=== PATIENT | male | born 1940 | race Caucasian/White ===

== ENCOUNTER 2022-04-24 01:48 | Outpatient (CLI) | payer MEDICARE | END 2022-04-24 01:49 | disposition critical access hospital (66) | LOC: EMS 01:48 | DX: R53.1 Weakness (principal); R29.810 Facial weakness | CPT/HCPCS: A0425; A0429 ==

== ENCOUNTER 2022-04-24 02:03 | Emergency (ER) | payer MEDICARE ==
--- NOTE | 2022-04-24 02:32 | ED Physician Documentation ---
PD HPI FOCAL NEURO - Stated complaint Stated Complaint: TIA - Chief complaint Chief Complaint: Neuro - History obtained from History obtained from: Patient, Family (spouse (in ED at bedside)) - History of Present Illness Timing - onset: Enter time (22:30) Timing - details: Abrupt onset Severity of deficit: Moderate Weakness: Arm, Hand, Leg, Foot, Right Associated symptoms: No: Headache, Nausea / vomiting, Seizure, Syncope, Fall, Head injury, Chest pain, Neck pain, Back pain, Fever Contributing factors: positive: Anticoagulated, Atrial fibrillation Baseline status: positive: A&OX3, ambulatory, indep Recently seen: Not recently seen - Additional information Additional information: BIBA. HPI from patient. EMS and patients contribute to HPI as well. Tonight at approximately 10:30 PM, patient was standing at home urinating in his bathroom when he had rapid onset of right-sided weakness. He felt dizziness and felt right arm and leg weakness. He did not fall to ground and had enough strength to support himself by bracing himself against the bathroom sink. The episode lasted 10-15 minutes and completely resolved. 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 The symptoms again lasted 10-15 minutes and have completely resolved by the time of EMS arrival. He arrives to ED asymptomatic. Denies h/o similar symptoms. Review of Systems Constitutional: reports: Reviewed and negative Eyes: reports: Reviewed and negative Ears: reports: Reviewed and negative Cardiac: reports: Reviewed and negative Respiratory: reports: Reviewed and negative GI: reports: Reviewed and negative : reports: Reviewed and negative Musculoskeletal: reports: Reviewed and negative Neurologic: reports: Focal weakness (RUE/RLE, resolved). denies: Numbness, Difficulty speaking, Near syncope, Syncope, Confused, Altered mental status, Headache, Head injury, LOC PD PAST MEDICAL HISTORY - Past Medical History Past Medical History: Yes Cardiovascular: Congestive heart failure, Hypertension, Atrial fibrillation - Past Surgical History Cardiovascular: CABG (3 vessel) - Present Medications Home Medications: Ambulatory Orders Medication Instructions Recorded Confirmed Apixaban [Eliquis] 5 mg 04/24/22 Cholecalciferol (Vitamin D3) 04/24/22 [Vitamin D3] Cyanocobalamin (Vitamin B-12) 04/24/22 [Vitamin B12] Furosemide 20 mg 04/24/22 Leflunomide [Arava] 20 mg PO 04/24/22 Lisinopril [Zestril] 04/24/22 Metoprolol Tartrate [Lopressor] 500 mg 04/24/22 Potassium Citrate [Potassium] 04/24/22 Resveratrol/Quercetin/Stilbene 04/24/22 [Resveratin Plus Capsule] Trospium Chloride [Trospium 04/24/22 Chloride ER] Vibegron [Gemtesa] 04/24/22 - Allergies Allergies/Adverse Reactions: Allergies Allergy/AdvReac Type Severity Reaction Status Date / Time hydrocodone Allergy Unknown Verified 04/24/22 02:20 levofloxacin [From Levaquin] Allergy Unknown Verified 04/24/22 02:20 linagliptin [From Jentadueto] Allergy Unknown Verified 04/24/22 02:20 metformin [From Jentadueto] Allergy Unknown Verified 04/24/22 02:20 Penicillins Allergy Unknown Verified 04/24/22 02:20 tamsulosin [From Flomax] Allergy Unknown Verified 04/24/22 02:20 PD ED PE NORMAL - Vitals Vital signs reviewed: Yes - General General: Alert and oriented X 3, No acute distress, Well developed/nourished - HEENT HEENT: PERRL, EOMI, Moist mucous membranes, Pharynx benign - Neck Neck: Supple, no meningeal sign - Cardiac Cardiac: RRR (regular baseline rhythm with frequent extra beats), No murmur, No gallop, No rub - Respiratory Respiratory: No respiratory distress, Clear bilaterally - Abdomen Abdomen: Soft, Non tender - Derm Derm: Normal color, Warm and dry - Neuro Neuro: Alert and oriented X 3, 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, No motor deficit, No sensory deficit, Normal speech Eye Opening: Spontaneous Motor: Obeys Commands Verbal: Oriented GCS Score: 15 NIHSS - Level of Consciousness Level of consciousness: (0) Alert, Keenly responsive LOC Questions: (0) Answers both Q's correct LOC Commands: (0) Performs both correctly - Gaze Best Gaze: (0) Normal - Visual Visual: (0) No loss - Facial Palsy Facial Palsy: (0) Normal, symmetrical movement - Motor Arms (both separate) Motor Arm (right): (0) No drift Motor Arm (left): (0) No drift - Motor Legs (both separate) Motor Leg (right): (0) No drift Motor Leg (left): (0) No drift - Limb Ataxia Limb Ataxia: (0) Absent - Sensory Sensory: (0) Normal - Best Language Best Language: (0) No aphasia - Dysarthria Dysarthria: (0) Normal - Extinction and Inattention (formally neg Extinction and inattention: (0) No abnormality - Total Score/Results Total Score/Result: 0 Results - Vitals Vitals: Vital Signs - 24 hr 04/24/22 04/24/22 04/24/22 02:49 03:19 03:30 Heart Rate 76 67 68 Respiratory 18 18 20 Rate Blood Pressure 189/94 H 161/95 H 158/77 H O2 Saturation 97 99 97 04/24/22 04/24/22 04/24/22 05:30 06:30 08:30 Heart Rate 65 75 78 Respiratory 18 18 19 Rate Blood Pressure 155/86 H 151/81 H 144/78 H O2 Saturation 94 100 99 Oxygen O2 Source Room air - EKG (time done) No standard instances Rate: Rate (enter#) (65) Rhythm: NSR [place]: Normal, Anterior hemiblock Intervals: Normal GA, RBBB (incomplete) QRS: Normal Ischemia: Normal ST segments Other comments: Other comments (PAC) - Labs Labs: Laboratory Tests 04/24/22 04/24/22 04/24/22 03:00 03:19 03:19 WBC 8.4 RBC 5.01 Hgb 14.8 Hct 47.1 MCV 94.0 MCH 29.5 MCHC 31.4 L RDW 15.7 H Plt Count 178 MPV 10.5 Neut # (Auto) 4.6 Lymph # (Auto) 2.5 [place] # (Auto) 1.1 H Eos # (Auto) 0.2 Baso # (Auto) 0.1 Absolute Nucleated RBC 0.00 Nucleated RBC % 0.0 Sodium 137 Potassium 4.6 Chloride 102 Carbon Dioxide 26 Anion Gap 9.0 BUN 22 H Creatinine 1.0 Estimated GFR (MDRD) 71 L Glucose 147 H Calcium 9.2 Urine Color YELLOW Urine Clarity CLEAR Urine pH 6.0 Ur Specific [place] 1.015 Urine Protein TRACE Urine Glucose (UA) 100 H Urine Ketones NEGATIVE Urine Occult Blood NEGATIVE Urine Nitrite NEGATIVE Urine Bilirubin NEGATIVE Urine Urobilinogen 0.2 (NORMAL) Ur Leukocyte Esterase NEGATIVE Ur Microscopic Review NOT INDICATED Urine Culture Comments NOT INDICATED - Rads (name of study) CTH Radiology: Prelim report reviewed, See rad report CTA head Radiology: Prelim report reviewed, See rad report chest xray Radiology: Prelim report reviewed, See rad report PD Medical Decision Making - ED course Complexity details: reviewed results, re-evaluated patient, considered differential, d/w patient, d/w family ED course: Asymptomatic during ED stay. HPI is s/o TIAs. No acute findings on CTA head, nor on CXR, EKG, blood tests. His medications include eliquis for atrial fibrillation. He cannot have MRI due to hearing implant. Further emergent/inpatient testing/treatment not indicated at this time. Results and return precautions discussed Departure - Departure Disposition: 01 Home, Self Care Clinical Impression: TIA (transient ischemic attack) Condition: Good Instructions: ED Transient Ischemic Attack Discharge Date/Time: 04/24/22 08:35
[2022-04-24] MEDS ORDERED: iohexoL-300 100 ML VIAL ONE (03:06)
[2022-04-24 03:13] LABS: BILIRUBIN,URINE NEGATIVE (NEGATIVE); CLARITY,URINE CLEAR (CLEAR); GLUCOSE, URINE (UA) 100 mg/dL (NEGATIVE); KETONES,URINE (UA) NEGATIVE (NEGATIVE); LEUKOCYTE ESTERASE, URINE NEGATIVE (NEGATIVE); NITRITE,URINE NEGATIVE (NEGATIVE); OCCULT BLOOD,URINE NEGATIVE (NEGATIVE); PROTEIN,URINE TRACE mg/dL (NEGATIVE); UROBILINOGEN,URINE 0.2 (NORMAL) E.U./dL (NORMAL)
[2022-04-24 03:23] LABS: BASOPHILS # (AUTO) 0.1 10^3/uL (0.0-0.1); BASOPHILS % (AUTO) 1.1 %; EOSINOPHILS # (AUTO) 0.2 10^3/uL (0.0-0.7); EOSINOPHILS % (AUTO) 2.6 %; HCT - HEMATOCRIT 47.1 % (42.0-52.0); HGB - HEMOGLOBIN 14.8 g/dL (14.0-18.0); LYMPHOCYTES # (AUTO) 2.5 10^3/uL (1.5-3.5); LYMPHOCYTES % (AUTO) 29.2 %; MEAN CORPUSCULAR HEMOGLOBIN 29.5 pg (27.0-31.0); MEAN CORPUSCULAR HGB CONC 31.4 g/dL (32.0-36.0); MEAN PLATELET VOLUME 10.5 fL (7.4-11.4); MONOCYTES # (AUTO) 1.1 10^3/uL (0.0-1.0); MONOCYTES % (AUTO) 12.5 %; NEUTROPHILS # (AUTO) 4.6 10^3/uL (1.5-6.6); NEUTROPHILS % (AUTO) 54.2 %; PLT - PLATELET COUNT 178 10^3/uL (130-450); RED BLOOD COUNT 5.01 10^6/uL (4.70-6.10); RED CELL DISTRIBUTION WIDTH 15.7 % (12.0-15.0); WHITE BLOOD COUNT 8.4 x10^3/uL (4.8-10.8)
[2022-04-24 03:31] LABS: CALCIUM 9.2 mg/dL (8.5-10.3); POTASSIUM 4.6 mmol/L (3.5-5.0)
[2022-04-24] MEDS ORDERED: iohexoL-300 100 ML VIAL IVP ONE (05:07)
--- NOTE | 2022-04-24 08:10 | XRAY Report ---
PROCEDURE: Chest 2 View X-Ray INDICATIONS: TIA x 2 today TECHNIQUE: 2 views of the chest were acquired. COMPARISON: None. FINDINGS: Surgical changes and devices: None. Lungs and pleura: No pleural effusions or pneumothorax. Lungs are clear. Mediastinum: Mediastinal contours are normal. Heart size is normal. Bones and chest wall: No suspicious bony abnormalities. Soft tissues appear unremarkable. IMPRESSION: No acute cardiopulmonary pathology. No discrepancies. Reviewed by: Angel Lujan MD on 04/24/2022 8:08 AM [facility] Approved by: Angel Lujan MD on 04/24/2022 8:08 AM [facility] Station ID: [id number]
--- NOTE | 2022-04-24 08:21 | CT Report ---
PROCEDURE: ANGIO HEAD W/WO INDICATIONS: TIA x 2 today CONTRAST: Omni 300 80ml TECHNIQUE: Precontrast 4.5 mm thick angled axial sections acquired from the foramen magnum to the vertex. Afte r the administration of intravenous contrast, 1 mm thick sections acquired through the [place] of [place] is. Postcontrast 4.5 mm thick sections then re-acquired from the foramen magnum to the vertex. 3-di mensional isjxhty-mksdypjwt-vmaankonik (MIP) and/or volume rendering reformats were acquired of the c entral intracranial vasculature. For radiation dose reduction, the following was used: automated ex posure control, adjustment of mA and/or kV according to patient size. COMPARISON: None FINDINGS: Image quality: Excellent. Anterior circulation: Intracranial internal carotid arteries demonstrate extensive atherosclerotic c alcifications in the cavernous segments with only mild stenotic disease. The flow within the paired a nterior cerebral arteries is normal and symmetric. There is very mild bilateral M1 segment atheroscle rotic disease. The middle cerebral arteries are otherwise patent. The anterior communicating artery i s seen. No aneurysms are seen. Posterior circulation: The left vertebral artery is dominant. The distal right vertebral artery is qu ite diminutive. There is mild stenotic disease involving the basilar artery and P1 segments of the po sterior cerebral arteries. No occlusions. No aneurysms are seen. CSF spaces: Ventricles are normal in size and shape. Basal cisterns are patent. No extra-axial flu id collections. Brain: No midline shift. No intracranial bleeds or masses. Davis-white matter interface appears int act. Age-related volume loss and mild small vessel ischemic change. Skull and face: Calvarium and facial bones appear intact, without suspicious lesions. Sinuses: Visualized sinuses and mastoids are clear. IMPRESSION: 1. There is diffuse mild atherosclerotic narrowing of multiple intracranial vessels. No severe stenos es or occlusions or focal filling defects. Findings are concordant with preliminary interpretation provided by [facility]. Reviewed by: Eugnee Van MD on 04/24/2022 8:19 AM PST Approved by: Eugene Van MD on 04/24/2022 8:19 AM PST Station ID: [id number]
[2022-04-24 08:33] VITALS: BP 144/78
== END 2022-04-24 08:35 | disposition home or self-care (01) ==
LOC: ED 02:03
DX: G45.9 Transient cerebral ischemic attack, unspecified (principal); I48.91 Unspecified atrial fibrillation; Z79.01 Long term (current) use of anticoagulants; Z95.1 Presence of aortocoronary bypass graft; I11.0 Hypertensive heart disease with heart failure; I50.9 Heart failure, unspecified
CPT/HCPCS: 36415; 70496; 71046; 80048; 81003; 85025; 93005; 99284; Q9967; 81001; 87086

== ENCOUNTER 2022-10-01 12:20 | Outpatient (CLI) | payer MEDICARE, OTHER ==
--- NOTE | 2022-10-01 16:52 | XRAY Report ---
PROCEDURE: Chest 2 View X-Ray INDICATIONS: ATELECTASIS L LUNG BASE TECHNIQUE: 2 views of the chest were acquired. COMPARISON: 04/24/2022 FINDINGS: Surgical changes and devices: Median sternotomy. Lungs and pleura: No pleural effusions or pneumothorax. Lungs are clear. Mediastinum: Mediastinal contours appear normal. Heart size is normal. Bones and chest wall: No suspicious bony lesions. Overlying soft tissues appear unremarkable. IMPRESSION: No acute process. Reviewed by: Honey Guzmán MD on 10/01/2022 4:50 PM PDT Approved by: Honey Guzmán MD on 10/01/2022 4:50 PM PDT Station ID: [id number]
== END 2022-10-01 12:21 | disposition home or self-care (01) ==
LOC: DI.N 12:20
PROVIDERS: ATTEND Family Medicine
DX: J98.11 Atelectasis (principal)

== ENCOUNTER 2023-02-16 08:00 | Outpatient (CLI) | payer MEDICARE, OTHER ==
--- NOTE | 2023-02-16 16:33 | XRAY Report ---
PROCEDURE: Knee 4 View LT INDICATIONS: LEFT KNEE PAIN TECHNIQUE: 4 views of the left knee and one view of the right knee acquired. COMPARISON: None. FINDINGS: Bones: No acute fractures or dislocations. No suspicious bony lesions. Postsurgical changes are s een from right total knee arthroplasty. There is severe joint space narrowing at the left lateral fem orotibial compartment subchondral sclerosis and marginal osteophyte formation. Moderate joint space n arrowing seen at the left medial femorotibial compartment and there is mild narrowing of the anterior compartment joint space with small marginal osteophytes. Soft tissues: Small knee joint effusion. No suspicious soft tissue calcifications. Surgical clips a re seen in the soft tissues at the posterior medial aspect of the left lower extremity. Nonspecific s oft tissue edema is present. IMPRESSION: 1.Tricompartmental left knee osteoarthrosis, severe at the lateral femorotibial compartment. 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
== END 2023-02-16 23:59 | disposition home or self-care (01) ==
LOC: DI.WOS 08:00
PROVIDERS: ATTEND Physician Assistant Surgical
DX: M17.12 Unilateral primary osteoarthritis, left knee (principal); Z96.651 Presence of right artificial knee joint

== ENCOUNTER 2023-12-02 12:44 | Outpatient (CLI) | payer MEDICARE, OTHER ==
--- NOTE | 2023-12-02 13:29 | Sleep Patient Instructions ---
Sleep Center Visit Summary - Patient Visit Information Reason for Visit: First Compliance follow-up - Patient Instructions Additional Instructions: You were here for follow up of BIPAP therapy. You will be continued on BiPAP therapy with pressure at 13/7 cmH2O. Please let us know if the pressure change is uncomfortable and we can make further adjustments of the pressure. You should follow up with sleep care in 1-2 months. You may contact us sooner for any questions or concerns. - Clinic Information Contact: [facility] [address] [place] [address] [email or web address] T: [phone]
--- NOTE | 2023-12-02 13:34 | SLEEP CARE CONSULTATION ---
Information from patient questionnaire entered by Liz Collado. I have reviewed and concur with the information entered by Liz Collado. This document represents the service I personally performed and the decisions made by me, Barb Leary ARNP. History of Present Illness Service Date and Time: 12/02/2023 1244 Previous diagnosis: Very Severe, Obstructive Sleep Apnea-Hypopnea Syndrome AHI: 89 (08/25/2016) Reason for follow up: first compliance after device update Accompanied by: Spouse (Jody) Equipment type: BiPAP (ResMed AirCurve 11 VAuto, s/u 09/30/23) Equipment obtained from: Other ([facility]; getting supplies) Mask style: Nasal Mask brand: Respironics (Dreamwear) Backup mask available: Yes Last cushion change: 3 weeks Prior sleep studies: Yes Year and Where: 2018 HPI additional information: KEITH DURANT was diagnosed to have very severe, AHI 89, obstructive sleep apnea-hypopnea syndrome and returned today for BIPAP therapy first compliance after updating device follow-up. Sleep Study - Results Prior sleep studies: Yes Year and Where: 2018 CPAP Compliance Data - Data Reviewed with Patient Average duration of nightly device use: 8 HRS 30 MIN Compliance rate %: 87 (09/30/23-10/29/23; 29/30 days used) Current pressure setting (cmH2O): 12/7 with 4 support Average residual AHI: 27.6 (unknown 15.9) Central apnea: 1.2 Obstructive apnea: 10.2 Hypopnea: 0.2 Average large leak: 10.3 L/min Subjective Patient concerns: reports: dry mouth, nose, throat. denies: aerophagia, mask discomfort, air blowing in eyes, mask leak noise, condensation in mask/hose, nasal congestion, epistaxis Observed to snore while using device: No Current pressure setting perceived as: comfortable On therapy, patient: reports: sleeping better, awakening more refreshed, being more awake and alert during the day, more rested overall. denies: drowsiness while driving Initial [place] Sleepiness Scale score: 14 (11/12/22) Current [place] Sleepiness Scale score: 13 (12/02/23) Allergies and Home Medications Known drug allergies: Yes (as listed) Drug allergies reviewed: Yes Home medication list reviewed: Yes (no changes) Allergy and home medication list: Allergies hydrocodone Allergy (Verified 12/02/23 12:59) Unknown levofloxacin [From Levaquin] Allergy (Verified 12/02/23 12:59) Unknown linagliptin [From Jentadueto] Allergy (Verified 12/02/23 12:59) Unknown metformin [From Jentadueto] Allergy (Verified 12/02/23 12:59) Unknown Penicillins Allergy (Verified 12/02/23 12:59) Unknown tamsulosin [From Flomax] Allergy (Verified 12/02/23 12:59) Unknown Review of Systems Review of systems same as previous: Yes (NO CHANGE) Physical Exam Vital signs obtained and entered by: LIZ Mac MA Blood Pressure: 143/76 (RIGHT ARM) Cuff size: regular Heart Rate: 72 O2 Saturation: 96 Height: 6 ft 2 in Weight: 216 lb 6.4 oz Body Mass Index: 27.8 BMI Classification: Overweight Impression and Plan 1. Obstructive Sleep Apnea-Hypopnea Syndrome, very severe, with good treatment compliance and fair apnea control with elevated residual AHI. On BIPAP therapy, the patient has better sleep quality and is more rested overall. He states that the bloating in the morning has greatly reduced with the pressure reduction to 12/7 cmH2O. However, his apnea control is not optimal. I did discuss possible need of a titration study to try to find a more optimal setting of his pressure but patient would like to think about whether he wants to do this or not. In the meantime, I will adjust his pressure to BIPAP 13/7 cmH20 for elevation of residual AHI. Patient advised to contact me if pressure change is uncomfortable so that it can be adjusted. Goals for apnea control discussed. Patient's apnea severity and rationale for treatment to reduce apnea, improve sleep quality and reduce cardiovascular and cerebrovascular events was reviewed. I also reviewed the benefit of consistent device use of BIPAP for hypertension, cardiac disease (CHF, CHD), diabetes. 2. Overweight, unspecified. Currently patients BMI is 27.8. Obesity increases the risk of apnea, BIPAP pressure requirements and overall health risks especially cardiovascular and diabetes. Thus patient is advised to lose weight. * Change BIPAP pressure to 13/7 cmH2O with 4 cmH2O pressure support * Notify me if snoring with mask or feeling that the pressure is too much or too little * Attempt to lose weight * Call this office if any problems using BIPAP * Return for follow up in 1-2 months, or sooner if concerns arise Adjust device pressure to (cmH2O): 06/11 with 4 pressure support Counseling Topics: Spare mask, Weight loss health impact Follow up with Sleep Care in: 1-2 months Visit Type: In Office Time Spent with Patient (minutes): 27 Provider Statement: I spent 100% of the Face to Face Visit with the patient with greater than 50% spent counseling the patient and coordination of care.
[2023-12-02 13:41] VITALS: BP 143/76; O2SAT 96
== END 2023-12-02 12:45 | disposition home or self-care (01) ==
LOC: SC 12:44
PROVIDERS: ATTEND Nurse Practitioner Family
DX: G47.33 Obstructive sleep apnea (adult) (pediatric) (principal); E66.3 Overweight; Z68.27 Body mass index [BMI] 27.0-27.9, adult
CPT/HCPCS: 99213; G0463; 99212

== ENCOUNTER 2025-03-31 03:54 | Inpatient (IN) ==
--- NOTE | 2025-03-31 04:03 | ED Physician Documentation ---
History of Present Illness Stated complaint Stated Complaint: DIFF BREATHING Chief complaint Chief Complaint: Resp History obtained from History obtained from: Patient and EMS Additonal information Additional information: 84yM hard of hearing with pmh copd, chf, p/w soa tonight, found by to be wheezing off cpap machine. 95% RA on ems arrival albeit slow to answer questions. mental status improved en route without specific intervention. patient now alert and conversant. denies fever, cp, dizziness, nausea. He had recent CT chest a couple weeks ago with persistent fluid on the lungs per ems. Meds/Allgy Home Medications Ambulatory Orders Medication Instructions Recorded Confirmed apixaban 5 mg tablet (Eliquis) See Rx Instructions .Ro [place] .COMPLEX 11/12/22 02/14/25 cholecalciferol (vitamin D3) 125 See Rx Instructions . Route .COMPLEX 11/12/22 02/14/25 mcg (5,000 unit) capsule cyanocobalamin (vitamin B-12) See Rx Instructions .Rou te .COMPLEX 11/12/22 02/14/25 5,000 mcg disintegrating tablet leflunomide 20 mg tablet (Arava) See Rx Instructions . Route .COMPLEX 11/12/22 02/14/25 metformin 500 mg tablet See Rx Instructions .Route . COMPLEX 11/12/22 02/14/25 metoprolol succinate 25 mg See Rx Instructions .Route .COMPLEX 11/12/22 02/14/25 tablet,extended release 24 hr silodosin 8 mg capsule (Rapaflo) See Rx Instructions . Route .COMPLEX 11/12/22 02/14/25 trospium 60 mg capsule,extended See Rx Instructions .R oute .COMPLEX 11/12/22 02/14/25 release 24 hr aspirin 81 mg capsule (Vazalore) See Rx Instructions . Route .COMPLEX 09/24/23 02/14/25 furosemide 20 mg tablet See Rx Instructions .Route . COMPLEX 09/24/23 02/14/25 isosorbide mononitrate 30 mg See Rx Instructions .Rout e .COMPLEX 09/24/23 02/14/25 tablet,extended release 24 hr nitroglycerin 2.5 mg See Rx Instructions .Route . COMPLEX 09/24/23 02/14/25 capsule,extended release sacubitril 24 mg-valsartan 26 mg See Rx Instructions . Route .COMPLEX 09/24/23 02/14/25 tablet (Entresto) spironolactone 25 mg tablet See Rx Instructions .Route .COMPLEX 09/24/23 (Aldactone) albuterol sulfate 90 mcg/actuation 2 puff inhalation Q 6H PRN 01/19/25 02/14/25 aerosol inhaler (Ventolin HFA) shortness of breath or wheezing gabapentin 100 mg capsule 100 mg PO QDAY 01/19/2501/26 albuterol sulfate 2.5 mg/3 mL mg 03/31/25 (0.083 %) solution for nebulization Allergies Allergies Allergy/AdvReac Type Severity Reaction Status Date / Time hydrocodone Allergy Unknown Verified 03/31/25 04:02 levofloxacin (From Levaquin) Allergy Unknown Verified 03/31/25 04:02 linagliptin (From Jentadueto) Allergy Unknown Verified 03/31/25 04:02 Penicillins Allergy Unknown Verified 03/31/25 04:02 tamsulosin (From Flomax) Allergy Unknown Verified 03/31/25 04:02 PFSH Active Problems All Active Problems Breath shortness (Acute) Obstructive sleep apnea of adult (Chronic) Acute exacerbation of CHF (congestive heart failure) (Acute) Abdominal pain (Acute) Medical History Medical History Atrial fibrillation Atrial fibrillation Coronary artery disease Coronary artery disease Hypertension Hypertension Social History Social History (Updated 01/19/25 @ 11:31 by Opal Cabrera RN, MSN) Smoking Status: Former smoker If you are a former smoker, when did you quit? (Date/Year): 1966 Number of Years Smoked: 7 How many cigarettes a day do you smoke? (20 cigarettes=1 Pk): 8 Do you vape?: No Do you feel safe in your home environment?: Yes History of physical, verbal, emotional, or financial abuse?: No POLST Patient has POLST: Yes Exam Exam Vital Signs: Vital Signs x48h Temp Pulse Resp BP Pulse Ox O2 Flow Rate 03/31/25 04:56 73 21 155/79 H 96 2 03/31/25 04:22 76 24 1.5 03/31/25 03:59 36.7 C 81 22 150/81 H 96 2 Constitutional elderly appearing with audible wheeze (at baseline per ems) HENMT normocephalic, head/scalp atraumatic and oropharynx normal Eyes PERRL and EOMs intact bilaterally Neck/C-Spine visual inspection normal Chest inspection of chest normal Respiratory breath sounds equal bilaterally and normal respiratory effort BL expiratory wheezing Cardiovascular normal heart rate noted and regular rhythm noted Gastrointestinal abdomen normal to inspection, abdomen soft to palpation and nontender to palpation Extremities normal to inspection Results Vitals Vitals: Vital Signs - 24 hr 03/31/25 03:59 03/31/25 04:22 03/31/25 04:56 Temperature 36.7 C Temperature Source Temporal Artery Scan Pulse Rate 81 76 73 Respiratory Rate 22 24 21 Blood Pressure 150/81 H 155/79 H O2 Saturation 96 96 O2 Source Nasal cannula Nasal cannula Nasal cannula If not protocol: Oxygen Flow, liters/minute 2 1.5 2 Pain Intensity 4 Oxygen O2 Source Nasal cannula EKG (time done) 0543: EKG releavant findings:: EKG personally interpreted by author of this note. Relevant findings are: Rate: Rate (enter#) (81) Rhythm: NSR Intervals: Normal HI Other comments: Other comments (multiple pvcs) Labs Labs: Laboratory Tests 03/31/25 03/31/25 03/31/25 04:10 04:25 04:26 WBC 7.3 RBC 4.29 L Hgb 12.7 L Hct 41.4 L MCV 96.5 H MCH 29.6 MCHC 30.7 L RDW 15.9 H Plt Count 184 MPV 11.3 Neut # (Auto) 3.4 Lymph # (Auto) 1.9 [place] # (Auto) 0.9 Eos # (Auto) 1.0 H Baso # (Auto) 0.1 Absolute Nucleated RBC 0.00 Nucleated RBC % 0.0 Manual Slide Review Indicated WBC Morphology NORMAL APPEARANCE Platelet Estimate NORMAL (130-450,000) Platelet Morphology NORMAL PABLITO RBC Morph Micro Appear NORMAL APPEARANCE VBG pH 7.465 H VBG pCO2 39.0 L VBG pO2 76.2 H VBG HCO3 28.3 H VBG Total CO2 29.5 H VBG O2 Saturation 95.0 H VBG Base Excess 4.4 H Sodium Potassium Chloride Carbon Dioxide Anion Gap BUN Creatinine Estimated GFR (MDRD) Glucose Calcium Total Bilirubin AST ALT Alkaline Phosphatase B-Natriuretic Peptide 96 Total Protein Albumin Globulin Albumin/Globulin Ratio Lipase Nasal Adenovirus (PCR) NOT DETECTED Nasal B. parapertussis DNA (PCR) NOT DETECTED Nasal Coronavir 229E PCR NOT DETECTED Nasal Coronavir HKU1 PCR NOT DETECTED Nasal Coronavir NL63 PCR NOT DETECTED Nasal Coronavir OC43 PCR NOT DETECTED Nasal Enterovir/Rhinovir PCR NOT DETECTED Nasal Influenza B PCR NOT DETECTED Nasal Influenza A PCR NOT DETECTED Nasal Parainfluen 1 PCR NOT DETECTED Nasal Parainfluen 2 PCR NOT DETECTED Nasal Parainfluen 3 PCR NOT DETECTED Nasal Parainfluen 4 PCR NOT DETECTED Nasal RSV (PCR) NOT DETECTED Nasal B.pertussis DNA PCR NOT DETECTED Nasal C.pneumoniae (PCR) NOT DETECTED Matias Human Metapneumo PCR NOT DETECTED Nasal M.pneumoniae (PCR) NOT DETECTED Nasal SARS-CoV-2 (PCR) NOT DETECTED 03/31/25 04:49 WBC RBC Hgb Hct MCV MCH MCHC RDW Plt Count MPV Neut # (Auto) Lymph # (Auto) [place] # (Auto) Eos # (Auto) Baso # (Auto) Absolute Nucleated RBC Nucleated RBC % Manual Slide Review WBC Morphology Platelet Estimate Platelet Morphology RBC Morph Micro Appear VBG pH VBG pCO2 VBG pO2 VBG HCO3 VBG Total CO2 VBG O2 Saturation VBG Base Excess Sodium 139 Potassium 3.7 Chloride 104 Carbon Dioxide 29 Anion Gap 6.0 BUN 21 H Creatinine 1.1 Estimated GFR (MDRD) 63 L Glucose 139 H Calcium 9.5 Total Bilirubin 0.5 AST 14 ALT 13 Alkaline Phosphatase 59 B-Natriuretic Peptide Total Protein 5.7 L Albumin 3.3 Globulin 2.4 Albumin/Globulin Ratio 1.4 Lipase < 10 L Nasal Adenovirus (PCR) Nasal B. parapertussis DNA (PCR) Nasal Coronavir 229E PCR Nasal Coronavir HKU1 PCR Nasal Coronavir NL63 PCR Nasal Coronavir OC43 PCR Nasal Enterovir/Rhinovir PCR Nasal Influenza B PCR Nasal Influenza A PCR Nasal Parainfluen 1 PCR Nasal Parainfluen 2 PCR Nasal Parainfluen 3 PCR Nasal Parainfluen 4 PCR Nasal RSV (PCR) Nasal B.pertussis DNA PCR Nasal C.pneumoniae (PCR) Matias Human Metapneumo PCR Nasal M.pneumoniae (PCR) Nasal SARS-CoV-2 (PCR) PD Medical Decision Making ED course ED course: 84yM p/w wheezing and soa tonight, appearing confused on initial ems arrival but with mental status improving en route and alert and oriented now in the ED and stating his wheezing is at baseline. O2 sat 95% RA. he was placed on 1L O2 for comfort. he is wheezing quite audibly and was given albuterol with improvement. plan to investigate labwork, imaging, ekg. Labwork looks pretty benign and patient endorses improvement with albuterol. awaiting cta chest results. plan to endorse to incoming daytime ed md at 7am shift change. 6:45am - Patient was trialed off oxygen and his saturation dropped to 89%RA. no bed availability for admission. Discharge Plan Discharge Condition: Stable Clinical Impression: Breath shortness Prescriptions: No Action metformin 500 MG tablet See Rx Instructions .Route .COMPLEX Rx Instructions: 3XQD leflunomide [Arava] 20 MG tablet See Rx Instructions .Route .COMPLEX Rx Instructions: QD metoprolol succinate 25 MG tablet extended release 24 hr See Rx Instructions .Route .COMPLEX Rx Instructions: QD cholecalciferol (vitamin D3) 5,000 UNIT capsule See Rx Instructions .Route .COMPLEX Rx Instructions: QD trospium 60 MG capsule,extended release 24hr See Rx Instructions .Route .COMPLEX Rx Instructions: QD silodosin [Rapaflo] 8 MG capsule See Rx Instructions .Route .COMPLEX Rx Instructions: QD cyanocobalamin (vitamin B-12) 5,000 MCG tablet,disintegrating See Rx Instructions .Route .COMPLEX Rx Instructions: QD Eliquis 5 MG tablet See Rx Instructions .Route .COMPLEX Rx Instructions: BID nitroglycerin 2.5 MG capsule, extended release See Rx Instructions .Route .COMPLEX Rx Instructions: PRN isosorbide mononitrate 30 MG tablet extended release 24 hr See Rx Instructions .Route .COMPLEX Rx Instructions: QD spironolactone [Aldactone] 25 MG tablet See Rx Instructions .Route .COMPLEX Rx Instructions: QD furosemide 20 MG tablet See Rx Instructions .Route .COMPLEX Rx Instructions: QD sacubitril-valsartan [Entresto] 1 EACH tablet See Rx Instructions .Route .COMPLEX Rx Instructions: QD [place] 81 MG capsule See Rx Instructions .Route .COMPLEX Rx Instructions: QD albuterol sulfate 2.5 mg /3 mL (0.083 %) solution for nebulization Patient Comments: INHALE THE CONTENTS OF 1 VIAL VIA NEBULIZER 4-6 TIMES DILY NEEDED gabapentin 100 mg capsule 100 mg PO QDAY albuterol sulfate [Ventolin HFA] 90 mcg/actuation HFA aerosol inhaler 2 puff inhalation Q6H PRN (Reason: shortness of breath or wheezing) Activity Restrictions/Additional Instructions: You were seen in the emergency department for medical evaluation. Your labwork and imaging uncovered no emergent issues. Please follow-up with your primary care provider and apple checker and return to the emergency department if you have any new or worsening symptoms or other concerns. Print Language: [place] Patient Instructions: ED Shortness of Breath (Dyspnea) Stand Alone Forms: PCP List
[2025-03-31] MEDS: ALBUTEROL NEB 2.5 MG/3 ML INH STA (04:22)
[2025-03-31 04:29] LABS: HCT - HEMATOCRIT 41.4 % (42.0-52.0); HGB - HEMOGLOBIN 12.7 g/dL (14.0-18.0); MEAN PLATELET VOLUME 11.3 fL (7.4-11.4); NRBC ABSOLUTE COUNT (AUTO) 0.00 x10^3/uL; NUCLEATED RED BLOOD CELLS AUTO 0.0 /100WBC; PLT - PLATELET COUNT 184 10^3/uL (130-450); RED CELL DISTRIBUTION WIDTH 15.9 % (12.0-15.0)
[2025-03-31 04:32] LABS: VBG BASE EXCESS 4.4 mmol/L (-2 - +2); VBG PCO2 39.0 mmHg (41-51); VBG PH 7.465 (7.31-7.41); VBG PO2 76.2 mmHg (25-47); VBG TOTAL CO2 29.5 mmol/L (24-29)
[2025-03-31 04:49] LABS: PLATELET ESTIMATE, MANUAL NORMAL (130-450,000) (NORMAL); SLIDE REVIEW? Indicated
[2025-03-31 04:50] LABS: PLATELET MORPHOLOGY NORMAL APP (NORMAL); RBC MORPHOLOGY (MULTIPLE) NORMAL APPEARANCE (NORMAL); WBC MORPHOLOGY (MULTIPLE) NORMAL APPEARANCE (NORMAL)
--- OUTSIDE RECORDS SUMMARY | 2025-03-31 05:00 | EXTERNAL MEDICAL SUMMARY RPT | Continuity of Care Document ---
Author Organization [facility] Address [address] [place] [id number] Phone Care Team Providers Care Tie Up Worker Name Role Phone Unavailable Unavailable Unavailable Shad Reardon Unavailable Unavailable Allergies and Intolerances date description facility reaction severity 2025-02-12 14:42:32 [facility] (no reactio n) (no severity) 2025-02-12 14:42:32 [facility] (no reactio n) (no severity) 2025-02-12 14:42:32 [facility] (no reactio n) (no severity) 2025-02-12 14:42:32 [facility] (no reactio n) (no severity) 2025-02-12 14:42:32 [facility] (no reactio n) (no severity) 2025-02-12 14:42:32 [facility] (no reactio n) (no severity) Medications date description facility 2025-02-13 00:00 [facility] 2025-02-13 00:00 [facility] Problems date description facility 2025-01-19 11:38 Anxiety disorder, unspecified [facility] 2025-01-19 11:38 Nausea [facility] 2025-01-19 11:38 Abdominal distension (gaseous) [facility] 2025-01-19 11:39 [facility], [facility] 11:39 Nausea [facility] 2025-01-19 11:39 Abdominal distension (gaseous) [facility] 2025-01-19 11:57 Anxiety disorder, unspecified [facility] 2025-01-19 11:57 Nausea [facility] 2025-01-19 11:57 [facility] 2025-01-19 12:59 Anxiety disorder, unspecified [facility] 2025-01-19 12:59 [facility] 2025-01-19 12:59 Abdominal distension (gaseous) [facility] 2025-01-19 13:18 Anxiety disorder, unspecified [employer] [facility] 2025-01-19 13:18 [facility] 2025-01-19 13:18 Abdominal distension (gaseous) [facility] 2025-01-19 13:29 Anxiety disorder, unspecified [facility] 2025-01-19 13:29 [facility] 2025-01-19 13:29 Abdominal distension (gaseous) [facility] 2025-01-20 00:06 Anxiety disorder, unspecified [employer] 2025-01-20 00:06 [facility] 2025-01-20 00:06 Abdominal distension (gaseous) [employer] 2025-01-20 07:55 Abdominal distension (gaseous) [facility] 2025-01-20 15:17 Anxiety disorder, unspecified [employer] 2025-01-20 15:17 [facility] 2025-01-20 15:17 Abdominal distension (gaseous) [employer] [facility] 2025-01-21 00:02 Anxiety disorder, unspecified [facility] 2025-01-21 00:02 [facility] 2025-01-21 00:02 Abdominal distension (gaseous) [employer] 2025-01-24 08:53 Abdominal distension (gaseous) [facility] 2025-02-02 08:15 Unspecified injury of head, ini tial encounter [employer] 2025-02-03 07:46 Headache, unspecified [employer] [facility] 2025-02-03 08:09 Shortness of breath [employer] [facility] 2025-02-03 08:09 Other forms of dyspnea [employer] 2025-02-12 00:00 Exacerbation of reactive airway disease [facility] 2025-02-20 09:04 Obstructive sleep apnea (adult) (pediatric) [facility] 2025-02-20 13:25 [facility]ezing [facility] 2025-03-09 16:25 Heart failure, unspecified [employer] 2025-03-09 16:25 Chronic obstructive pulmonary d isease, unspecified [employer] 2025-03-10 11:14 Anxiety disorder, unspecified [facility] [employer] [facility] 2025-03-10 11:14 Obstructive sleep apnea (adult) (pediatric) [facility] 2025-03-10 11:14 Heart failure, unspecified [facility] [facility] 2025-03-10 11:14 Shortness of breath [facility]asmina [facility] 2025-03-10 11:14 Other forms of dyspnea [facility] 2025-03-10 11:14 [facility]ezing [facility] 2025-03-10 11:14 [facility]a [facility] 2025-03-10 11:14 Abdominal distension (gaseous) [employer] [facility] 2025-03-10 11:14 Headache, unspecified [employer] [facility] 2025-03-10 11:14 Unspecified injury of head, ini tial encounter [facility] 2025-03-10 11:30 Anxiety disorder, unspecified [employer] [facility] 2025-03-10 11:30 Heart failure, unspecified [employer] [facility] 2025-03-10 11:30 [facility]a [facility] 2025-03-10 11:30 Abdominal distension (gaseous) [employer] [facility] 2025-03-10 11:31 Unspecified injury of head, ini tial encounter [facility] 2025-03-10 11:33 Headache, unspecified [facility] [facility] 2025-03-10 11:34 Shortness of breath anabead Buttonnereida [facility] 2025-03-10 11:34 Other forms of dyspnea [facility] 2025-03-10 11:35 [facility]ezing [facility] 2025-03-10 11:37 Obstructive sleep apnea (adult) (pediatric) [facility] 2025-03-10 11:39 Obstructive sleep apnea (adult) (pediatric) [employer] 2025-03-10 16:38 Heart failure, unspecified [employer] 2025-03-10 16:38 Chronic obstructive pulmonary d isease, unspecified [employer] [facility] 2025-03-10 16:41 Heart failure, unspecified [employer] 2025-03-10 16:41 Chronic obstructive pulmonary d isease, unspecified [employer] 2025-03-13 10:50 Heart failure, unspecified [facility] [employer] 2025-03-13 10:50 Chronic obstructive pulmonary d isease, [facility] 2025-03-14 00:02 Heart [facility], [facility] 2025-03-14 00:02 Chronic obstructive pulmonary d isease, [facility] 2025-03-14 13:46 Heart failure, unspecified [facility] [employer] 2025-03-14 13:46 Chronic obstructive pulmonary d isease, [facility] 2025-03-24 10:00 Anxiety disorder, unspecified [email or web address] 2025-03-24 10:00 Nausea [facility] 2025-03-24 10:00 Abdominal distension (gaseous) [facility] Procedures date description facility 2025-02-12 00:00 X-ray of chest, [facility] 2025-02-12 00:00 Complete Doppler echocardiograp [facility] Results/Labs test date facility value unit notes Result panel 1 Specimen collection (procedure) (no date) [facility] (missing) (missing) (missing) Result panel 2 Specimen collection (procedure) (no date) [facility] (missing) (missing) (missing) Result panel 3 Specimen collection (procedure) (no date) [facility] (missing) (missing) (missing) Result panel 4 Specimen collection (procedure) (no date) [facility] (missing) (missing) (missing) Result panel 5 Specimen collection (procedure) (no date) [facility] (missing) (missing) (missing) Result panel 6 Specimen collection (procedure) (no date) [facility] (missing) (missing) (missing) Result panel 7 Specimen collection (procedure) (no date) [facility] (missing) (missing) (missing) Result panel 8 Specimen collection (procedure) (no date) [facility] (missing) (missing) (missing) Result panel 9 Specimen collection (procedure) (no date) [facility] (missing) (missing) (missing) Result panel 10 Specimen collection (procedure) (no date) [facility] (missing) (missing) (missing) Result panel 11 Specimen collection (procedure) (no date) [facility] (missing) (missing) (missing) Result panel 12 Specimen collection (procedure) (no date) [facility] (missing) (missing) (missing) Result panel 13 Specimen collection (procedure) (no date) [facility] (missing) (missing) (missing) Result panel 14 Specimen collection (procedure) (no date) [facility] (missing) (missing) (missing) Result panel 15 Specimen collection (procedure) (no date) [facility] (missing) (missing) (missing) Result panel 16 Specimen collection (procedure) (no date) [facility] (missing) (missing) (missing) Result panel 17 Specimen collection (procedure) (no date) [facility] (missing) (missing) (missing) Result panel 18 Specimen collection (procedure) (no date) [facility] (missing) (missing) (missing) Result panel 19 Specimen collection (procedure) (no date) [facility] (missing) (missing) (missing) Result panel 20 Specimen collection (procedure) (no date) [facility] (missing) (missing) (missing) Result panel 21 Specimen collection (procedure) (no date) [facility] (missing) (missing) (missing) Result panel 22 Specimen collection (procedure) (no date) [facility] (missing) (missing) (missing) Result panel 23 Specimen collection (procedure) (no date) [facility] (missing) (missing) (missing) Result panel 24 Specimen collection (procedure) (no date) [facility] (missing) (missing) (missing) Result panel 25 Specimen collection (procedure) (no date) [facility] (missing) (missing) (missing) Result panel 26 Specimen collection (procedure) (no date) [facility] (missing) (missing) (missing) Result panel 27 Specimen collection (procedure) (no date) [facility] (missing) (missing) (missing) Result panel 28 Specimen collection (procedure) (no date) [facility] (missing) (missing) (missing) Result panel 29 Specimen collection (procedure) (no date) [facility] (missing) (missing) (missing) Result panel 30 Specimen collection (procedure) (no date) [facility] (missing) (missing) (missing) Result panel 31 Specimen collection (procedure) (no date) [facility] (missing) (missing) (missing) Result panel 32 Specimen collection (procedure) (no date) [facility] (missing) (missing) (missing) Result panel 33 Specimen collection (procedure) (no date) [facility] (missing) (missing) (missing) Result panel 34 Specimen collection (procedure) (no date) [facility] (missing) (missing) (missing) Result panel 35 Specimen collection (procedure) (no date) [facility] (missing) (missing) (missing) Result panel 36 Specimen collection (procedure) (no date) [facility] (missing) (missing) (missing) Result panel 37 Specimen collection (procedure) (no date) [facility] (missing) (missing) (missing) Result panel 38 Specimen collection (procedure) (no date) [facility] (missing) (missing) (missing) Result panel 39 Specimen collection (procedure) (no date) [facility] (missing) (missing) (missing) Result panel 40 Specimen collection (procedure) (no date) [facility] (missing) (missing) (missing) Result panel 41 Specimen collection (procedure) (no date) [facility] (missing) (missing) (missing) Result panel 42 Specimen collection (procedure) (no date) [facility] (missing) (missing) (missing) Result panel 43 Specimen collection (procedure) (no date) [facility] (missing) (missing) (missing) Result panel 44 Specimen collection (procedure) (no date) [facility] (missing) (missing) (missing) Result panel 45 Specimen collection (procedure) (no date) [facility] (missing) (missing) (missing) Result panel 46 Specimen collection (procedure) (no date) [facility] (missing) (missing) (missing) Result panel 47 Specimen collection (procedure) (no date) [facility] (missing) (missing) (missing) Result panel 48 Specimen collection (procedure) (no date) [facility] (missing) (missing) (missing) Result panel 49 Specimen collection (procedure) (no date) [facility] (missing) (missing) (missing) Result panel 50 Specimen collection (procedure) (no date) [facility] (missing) (missing) (missing) Result panel 51 Specimen collection (procedure) (no date) [facility] (missing) (missing) (missing) Result panel 52 Specimen collection (procedure) (no date) [facility] (missing) (missing) (missing) Result panel 53 Specimen collection (procedure) (no date) [facility] (missing) (missing) (missing) Result panel 54 Specimen collection (procedure) (no date) [facility] (missing) (missing) (missing) Result panel 55 Specimen collection (procedure) (no date) [facility] (missing) (missing) (missing) Result panel 56 Specimen collection (procedure) (no date) [facility] (missing) (missing) (missing) Result panel 57 Specimen collection (procedure) (no date) [facility] (missing) (missing) (missing) Result panel 58 Specimen collection (procedure) (no date) [facility] (missing) (missing) (missing) Result panel 59 Specimen collection (procedure) (no date) [facility] (missing) (missing) (missing) Result panel 60 Specimen collection (procedure) (no date) [facility] (missing) (missing) (missing) Result panel 61 Specimen collection (procedure) (no date) [facility] (missing) (missing) (missing) Result panel 62 Specimen collection (procedure) (no date) [facility] (missing) (missing) (missing) Result panel 63 Specimen collection (procedure) (no date) [facility] (missing) (missing) (missing) Result panel 64 Specimen collection (procedure) (no date) [facility] (missing) (missing) (missing) Result panel 65 Specimen collection (procedure) (no date) [facility] (missing) (missing) (missing) Result panel 66 Specimen collection (procedure) (no date) [facility] (missing) (missing) (missing) Result panel 67 Specimen collection (procedure) (no date) [facility] (missing) (missing) (missing) Result panel 68 Specimen collection (procedure) (no date) [facility] (missing) (missing) (missing) Result panel 69 Specimen collection (procedure) (no date) [facility] (missing) (missing) (missing) Result panel 70 Specimen collection (procedure) (no date) [facility] (missing) (missing) (missing) Result panel 71 Specimen collection (procedure) (no date) [facility] (missing) (missing) (missing) Result panel 72 Specimen collection (procedure) (no date) [facility] (missing) (missing) (missing) Result panel 73 Specimen collection (procedure) (no date) [facility] (missing) (missing) (missing) Result panel 74 Specimen collection (procedure) (no date) [facility] (missing) (missing) (missing) Result panel 75 Specimen collection (procedure) (no date) [facility] (missing) (missing) (missing) Result panel 76 Specimen collection (procedure) (no date) [facility] (missing) (missing) (missing) Result panel 77 Specimen collection (procedure) (no date) [facility] (missing) (missing) (missing) Result panel 78 Specimen collection (procedure) (no date) [facility] (missing) (missing) (missing) Result panel 79 Specimen collection (procedure) (no date) [facility] (missing) (missing) (missing) Result panel 80 Specimen collection (procedure) (no date) [facility] (missing) (missing) (missing) Result panel 81 Specimen collection (procedure) (no date) [facility] (missing) (missing) (missing) Result panel 82 Specimen collection (procedure) (no date) [facility] (missing) (missing) (missing) Result panel 83 Specimen collection (procedure) (no date) [facility] (missing) (missing) (missing) Result panel 84 Specimen collection (procedure) (no date) [facility] (missing) (missing) (missing) Result panel 85 Specimen collection (procedure) (no date) [facility] (missing) (missing) (missing) Result panel 86 Specimen collection (procedure) (no date) [facility] (missing) (missing) (missing) Result panel 87 Specimen collection (procedure) (no date) [facility] (missing) (missing) (missing) Result panel 88 Specimen collection (procedure) (no date) [facility] (missing) (missing) (missing) Result panel 89 Specimen collection (procedure) (no date) [facility] (missing) (missing) (missing) Result panel 90 Specimen collection (procedure) (no date) [facility] (missing) (missing) (missing) Result panel 91 Specimen collection (procedure) (no date) [facility] (missing) (missing) (missing) Result panel 92 Specimen collection (procedure) (no date) [facility] (missing) (missing) (missing) Result panel 93 Specimen collection (procedure) (no date) [facility] (missing) (missing) (missing) Result panel 94 Specimen collection (procedure) (no date) [facility] (missing) (missing) (missing) Result panel 95 Specimen collection (procedure) (no date) [facility] (missing) (missing) (missing) Result panel 96 Specimen collection (procedure) (no date) [facility] (missing) (missing) (missing) Result panel 97 Specimen collection (procedure) (no date) [facility] (missing) (missing) (missing) Result panel 98 Specimen collection (procedure) (no date) [facility] (missing) (missing) (missing) Result panel 99 Specimen collection (procedure) (no date) [facility] (missing) (missing) (missing) Result panel 100 Specimen collection (procedure) (no date) [facility] (missing) (missing) (missing) Result panel 101 Specimen collection (procedure) (no date) [facility] (missing) (missing) (missing) Result panel 102 Specimen collection (procedure) (no date) [facility] (missing) (missing) (missing) Result panel 103 Specimen collection (procedure) (no date) [facility] (missing) (missing) (missing) Result panel 104 Specimen collection (procedure) (no date) [facility] (missing) (missing) (missing) Result panel 105 Specimen collection (procedure) (no date) [facility] (missing) (missing) (missing) Result panel 106 Specimen collection (procedure) (no date) [facility] (missing) (missing) (missing) Result panel 107 NUCLEATED RED BLOOD CELLS AUTO 2025-01-19 11:46 [facility] 0.0 /100wbc (missing) NRBC ABSOLUTE COUNT (AUTO) 2025-01-19 11:46 [facility] 0.00 x10 3/ul (missing) BASOPHILS # (AUTO) 2025-01-19 11:46 [facility] 0.1 10 3 /ul (missing) EOSINOPHILS # (AUTO) 2025-01-19 11:46 [facility] 0.4 10 3/ul (missing) BILIRUBIN,TOTAL 2025-01-19 11:46 [facility] 0.4 mg/dl As of October 2022 testing method has changed, this may include reference ranges. MONOCYTES # (AUTO) 2025-01-19 11:46 [facility] 0.9 10 3 /ul (missing) CREATININE 2025-01-19 11:46 [facility] 1.0 mg/dl As of October 2022 testing method has changed, this may include reference ranges. ALBUMIN/GLOBULIN RATIO 2025-01-19 11:46 [facility] 1.4 (missing) (missing) LYMPHOCYTES # (AUTO) 2025-01-19 11:46 [facility] 1.9 10 3/ul (missing) MEAN PLATELET VOLUME 2025-01-19 11:46 [facility] 10.9 fl (missing) CHLORIDE 2025-01-19 11:46 [facility] 102 mmol/l As of October 2022 testing method has changed, this may include reference ranges. GLUCOSE 2025-01-19 11:46 [facility] 111 mg/dl As of October 2022 testing method has changed, this may include reference ranges. HGB - HEMOGLOBIN 2025-01-19 11:46 [facility] 13.2 g/dl (missing) SODIUM 2025-01-19 11:46 [facility] 138 mmol/l Unk nown ALT ALANINE AMINOTRANSFERASE 2025-01-19 11:46 [facility] 15 iu/l As of 2022 testing method has changed, this may include reference ranges. RED CELL DISTRIBUTION WIDTH 2025-01-19 11:46 [facility] 15.0 % (missing) AST ASPARTATE AMINOTRANSFERASE 2025-01-19 11:46 [facility] 17 iu/l As of 2022 testing method has changed, this may include reference ranges. THYROID STIMULATING HORMONE 2025-01-19 11:46 [facility] 2.50 uiu/ml (missing) GLOBULIN 2025-01-19 11:46 [facility] 2.7 g/dl (mi ssing) PLT - PLATELET COUNT 2025-01-19 11:46 [facility] 209 10 3/ul (missing) BUN - BLOOD UREA NITROGEN 2025-01-19 11:46 [facility] 27 mg/dl As of October 2022 testing method has changed, this may include reference ranges. CARBON DIOXIDE - CO2 2025-01-19 11:46 [facility] 28 mm ol/l As of October 2022 testing method has changed, this may include reference ranges. ALBUMIN 2025-01-19 11:46 [facility] 3.7 g/dl As of October 2022 testing method has changed, this may include reference ranges. MEAN CORPUSCULAR HEMOGLOBIN 2025-01-19 11:46 [facility] 30.8 pg (missing) AMYLASE 2025-01-19 11:46 [facility] 31 u/l As of October 2022 testing method has changed, this may include reference ranges. MEAN CORPUSCULAR HGB CONC 2025-01-19 11:46 [facility] 31.8 g/dl (missing) RED BLOOD COUNT 2025-01-19 11:46 [facility] 4.29 10 6/ul (missing) NEUTROPHILS # (AUTO) 2025-01-19 11:46 [facility] 4.6 10 3/ul (missing) POTASSIUM 2025-01-19 11:46 [facility] 4.6 mmol/l As of October 2022 testing method has changed, this may include reference ranges. LIPASE 2025-01-19 11:46 [facility] 40 u/l As of October 2022 testing method has changed, this may include reference ranges. HCT - HEMATOCRIT 2025-01-19 11:46 [facility] 41.5 % (missing) ALKALINE PHOSPHATASE 2025-01-19 11:46 [facility] 58 iu /l As of October 2022 testing method has changed, this may include reference ranges. TOTAL PROTEIN 2025-01-19 11:46 [facility] 6.4 g/dl As of October 2022 testing method has changed, this may include reference ranges. GFR - MDRD 2025-01-19 11:46 [facility] 71 (missing) Th e IDMS-traceable MDRD Study Equation has been validated extensively in and populations between the ages of 18 and 70 with impaired kidney function (eGFR < 60 mL/min/1.73m2) and has shown good performance for patients with all common causes of kidney disease. Although this equation has not been validated for patients older than 70, an MDRD-derived eGFR may still be a useful tool for providers caring for patients older than 70. References: http://www.nkdep.nih .gov/lab-evaluation/ gfr/creatinine-stand ardization, last updated June 2011. ANION GAP 2025-01-19 11:46 [facility] 8.0 (missing) (mi ssing) WHITE BLOOD COUNT 2025-01-19 11:46 [facility] 8.1 x10 3 /ul (missing) CALCIUM 2025-01-19 11:46 [facility] 9.8 mg/dl As of October 2022 testing method has changed, this may include reference ranges. MEAN CORPUSCULAR VOLUME 2025-01-19 11:46 [facility] 96.7 fl (missing) Result panel 108 NUCLEATED RED BLOOD CELLS AUTO 2025-01-26 09:04 [facility] 0. 0 /100wbc (missing) NRBC ABSOLUTE COUNT (AUTO) 2025-01-26 09:04 [facility] 0.00 x10 3/ul (missing) BASOPHILS # (AUTO) 2025-01-26 09:04 [facility] 0.1 10 3 /ul (missing) EOSINOPHILS # (AUTO) 2025-01-26 09:04 [facility] 0.5 10 3/ul (missing) MONOCYTES # (AUTO) 2025-01-26 09:04 [facility] 0.9 10 3 /ul (missing) MEAN PLATELET VOLUME 2025-01-26 09:04 [facility] 11.4 fl (missing) HGB - HEMOGLOBIN 2025-01-26 09:04 [facility] 14.1 g/dl (missing) RED CELL DISTRIBUTION WIDTH 2025-01-26 09:04 [facility] 15.2 % (missing) LYMPHOCYTES # (AUTO) 2025-01-26 09:04 [facility] 2.6 10 3/ul (missing) PLT - PLATELET COUNT 2025-01-26 09:04 [facility] 239 10 3/ul (missing) NEUTROPHILS # (AUTO) 2025-01-26 09:04 [facility] 3.7 10 3/ul (missing) MEAN CORPUSCULAR HEMOGLOBIN 2025-01-26 09:04 [facility] 30.5 pg (missing) MEAN CORPUSCULAR HGB CONC 2025-01-26 09:04 [facility] 32.5 g/dl (missing) RED BLOOD COUNT 2025-01-26 09:04 [facility] 4.62 10 6/ul (missing) HCT - HEMATOCRIT 2025-01-26 09:04 [facility] 43.4 % (missing) WHITE BLOOD COUNT 2025-01-26 09:04 [facility] 7.8 x10 3 /ul (missing) MEAN CORPUSCULAR VOLUME 2025-01-26 09:04 [facility] 93.9 fl (missing) Result panel 109 LIPASE 2025-01-26 09:40 [facility] < 10 u/l As of October 2022 testing method has changed, this may include reference ranges. BILIRUBIN,TOTAL 2025-01-26 09:40 [facility] 0.6 mg/dl As of October 2022 testing method has changed, this may include reference ranges. CREATININE 2025-01-26 09:40 [facility] 0.9 mg/dl As of October 2022 testing method has changed, this may include reference ranges. ALBUMIN/GLOBULIN RATIO 2025-01-26 09:40 [facility] 1.3 (missing) (missing) CHLORIDE 2025-01-26 09:40 [facility] 103 mmol/l As of October 2022 testing method has changed, this may include reference ranges. GLUCOSE 2025-01-26 09:40 [facility] 136 mg/dl As of October 2022 testing method has changed, this may include reference ranges. SODIUM 2025-01-26 09:40 [facility] 136 mmol/l (mi ssing) ALT ALANINE AMINOTRANSFERASE 2025-01-26 09:40 [facility] 16 iu/l As of 2022 testing method has changed, this may include reference ranges. AST ASPARTATE AMINOTRANSFERASE 2025-01-26 09:40 [facility] 17 iu/l As of 2022 testing method has changed, this may include reference ranges. MAGNESIUM 2025-01-26 09:40 [facility] 2.0 mg/dl As of October 2022 testing method has changed, this may include reference ranges. GLOBULIN 2025-01-26 09:40 [facility] 2.7 g/dl (ga ssing) BUN - BLOOD UREA NITROGEN 2025-01-26 09:40 [facility] 20 mg/dl As of October 2022 testing method has changed, this may include reference ranges. CARBON DIOXIDE - CO2 2025-01-26 09:40 [facility] 29 mm ol/l As of October 2022 testing method has changed, this may include reference ranges. ALBUMIN 2025-01-26 09:40 [facility] 3.6 g/dl As of October 2022 testing method has changed, this may include reference ranges. ANION GAP 2025-01-26 09:40 [facility] 4.0 (missing) (mi ssing) POTASSIUM 2025-01-26 09:40 [facility] 4.5 mmol/l As of October 2022 testing method has changed, this may include reference ranges. ALKALINE PHOSPHATASE 2025-01-26 09:40 [facility] 57 iu /l As of October 2022 testing method has changed, this may include reference ranges. TOTAL PROTEIN 2025-01-26 09:40 [facility] 6.3 g/dl As of October 2022 testing method has changed, this may include reference ranges. GFR - MDRD 2025-01-26 09:40 [facility] 80 (missing) Th e IDMS-traceable MDRD Study Equation has been validated extensively in and populations between the ages of 18 and 70 with impaired kidney function (eGFR < 60 mL/min/1.73m2) and has shown good performance for patients with all common causes of kidney disease. Although this equation has not been validated for patients older than 70, an MDRD-derived eGFR may still be a useful tool for providers caring for patients older than 70. References: http://www.nkdep.nih .gov/lab-evaluation/ gfr/creatinine-stand ardization, last updated June 2011. CALCIUM 2025-01-26 09:40 [facility] 9.8 mg/dl As of October 2022 testing method has changed, this may include reference ranges. Result panel 110 SARS-CoV-2 -RESP PCR PANEL 2025-01-31 16:10 [facility] NOT DETECTED (missing) A negative test result for this test indicates that SARS-CoV-2 RNA was not present in the specimen above the limit of detection. Testing performed on the SwivelFire RP2.1 Panel, a multiplexed nucleic acid repiratory panel. Negative results do not preclude infection with SARS-CoV-2 virus and should not be the sole basis of a patient management decision. In some patients repeat testing at various time points may be necessary for virus detection. False-negative results may arise from improper sample collection, degradation of viral RNA during shipping or storage, the presence of PCR inhibitors, and/or mutation in the SARS-CoV-2 virus. INFLUENZA A- RESP PCR PANEL 2025-01-31 16:10 [facility] NOT DETECTED (missing) Influenza A including subtypes H1, H3, and H1-2009 not detected by the BioFire RP2.1 Panel, a multiplexed nucleic acid test intended for the simultaneous qualitative detection and differentiation of nucleic acids from multiple viral and bacterial respiratory organisms. ADENOVIRUS - RESP PCR PANEL 2025-01-31 16:10 [facility] NOT DETECTED (missing) NO Y NO YES NO N O NO NO Negative results in the setting ofa respiratory illness may be due to infection with pathogens not detected by this test, or lower respiratory tract infection that may not be detected by nasopharyngeal specimen. B. PARAPERTUSSIS- RESP PCR ALBA 2025-01-31 16:10 [facility] NOT DETECTED (missing) Negative results for this organism do not preclude infection with this organism and may require additional laboratory testing (e.g., bacterial and viral culture, immunofluorescence, and radiography) when evaluating a patient with possible respiratory tract infection. B. PERTUSSIS- RESP PCR PANEL 2025-01-31 16:10 [facility] NOT DETECTED (missing) Negative results for this organism do not preclude infection with this organism and may require additional laboratory testing (e.g., bacterial and viral culture, immunofluorescence, and radiography) when evaluating a patient with possible respiratory tract infection. C. PNEUMONIAE- RESP PCR PANEL 2025-01-31 16:10 [facility] NOT DETECTED (missing) Negative results for this organism do not preclude infection with this organism and may require additional laboratory testing (e.g., bacterial and viral culture, immunofluorescence, and radiography) when evaluating a patient with possible respiratory tract infection. M. PNEUMONIAE- RESP PCR PANEL 2025-01-31 16:10 [facility] NOT DETECTED (missing) Negative results for this organism do not preclude infection with this organism and may require additional laboratory testing (e.g., bacterial and viral culture, immunofluorescence, and radiography) when evaluating a patient with possible respiratory tract infection. CORONAVIRUS 229E-RESP PCR 2025-01-31 16:10 [facility] NOT DETECTED (missing) Negative results in the setting ofa respiratory illness may be due to infection with pathogens not detected by this test, or lower respiratory tract infection that may not be detected by nasopharyngeal specimen. CORONAVIRUS HKU1-RESP PCR 2025-01-31 16:10 [facility] NOT DETECTED (missing) Negative results in the setting ofa respiratory illness may be due to infection with pathogens not detected by this test, or lower respiratory tract infection that may not be detected by nasopharyngeal specimen. CORONAVIRUS CF71-ISMS PCR 2025-01-31 16:10 [facility] NOT DETECTED (missing) Negative results in the setting ofa respiratory illness may be due to infection with pathogens not detected by this test, or lower respiratory tract infection that may not be detected by nasopharyngeal specimen. CORONAVIRUS CP37-NTHV PCR 2025-01-31 16:10 [facility] NOT DETECTED (missing) Negative results in the setting ofa respiratory illness may be due to infection with pathogens not detected by this test, or lower respiratory tract infection that may not be detected by nasopharyngeal specimen. HUMAN METAPNEUMOVIRUS 2025-01-31 16:10 [facility] NOT DETECTED (missing) Negative results in the setting ofa respiratory illness may be due to infection with pathogens not detected by this test, or lower respiratory tract infection that may not be detected by nasopharyngeal specimen. INFLUENZA B - RESP PCR PANEL 2025-01-31 16:10 [facility] NOT DETECTED (missing) Negative results in the setting ofa respiratory illness may be due to infection with pathogens not detected by this test, or lower respiratory tract infection that may not be detected by nasopharyngeal specimen. PARAINFLUENZA VIRUS 1 2025-01-31 16:10 [facility] NOT DETECTED (missing) Negative results in the setting ofa respiratory illness may be due to infection with pathogens not detected by this test, or lower respiratory tract infection that may not be detected by nasopharyngeal specimen. PARAINFLUENZA VIRUS 2 2025-01-31 16:10 [facility] NOT DETECTED (missing) Negative results in the setting ofa respiratory illness may be due to infection with pathogens not detected by this test, or lower respiratory tract infection that may not be detected by nasopharyngeal specimen. PARAINFLUENZA VIRUS 3 2025-01-31 16:10 [facility] NOT DETECTED (missing) Negative results in the setting ofa respiratory illness may be due to infection with pathogens not detected by this test, or lower respiratory tract infection that may not be detected by nasopharyngeal specimen. PARAINFLUENZA VIRUS 4 2025-01-31 16:10 [facility] NOT DETECTED (missing) Negative results in the setting ofa respiratory illness may be due to infection with pathogens not detected by this test, or lower respiratory tract infection that may not be detected by nasopharyngeal specimen. RHINOVIRUS/ENTEROVIR US 2025-01-31 16:10 [facility] NOT DETECTED (missing) Negative results in the setting ofa respiratory illness may be due to infection with pathogens not detected by this test, or lower respiratory tract infection that may not be detected by nasopharyngeal specimen. RSV- RESP PCR PANEL 2025-01-31 16:10 [facility] NOT DETECTED (missing) Negative results in the setting ofa respiratory illness may be due to infection with pathogens not detected by this test, or lower respiratory tract infection that may not be detected by nasopharyngeal specimen. Result panel 111 NUCLEATED RED BLOOD CELLS AUTO 2025-01-31 16:58 [facility] 0.0 /100wbc (missing) NRBC ABSOLUTE COUNT (AUTO) 2025-01-31 16:58 [facility] 0.00 x10 3/ul (missing) BASOPHILS # (AUTO) 2025-01-31 16:58 [facility] 0.1 10 3 /ul (missing) BILIRUBIN,TOTAL 2025-01-31 16:58 [facility] 0.4 mg/dl As of October 2022 testing method has changed, this may include reference ranges. EOSINOPHILS # (AUTO) 2025-01-31 16:58 [facility] 0.8 10 3/ul (missing) MONOCYTES # (AUTO) 2025-01-31 16:58 [facility] 0.8 10 3 /ul (missing) CREATININE 2025-01-31 16:58 [facility] 0.9 mg/dl As of October 2022 testing method has changed, this may include reference ranges. ALBUMIN/GLOBULIN RATIO 2025-01-31 16:58 [facility] 1.5 (missing) (missing) LYMPHOCYTES # (AUTO) 2025-01-31 16:58 [facility] 1.8 10 3/ul (missing) MAGNESIUM 2025-01-31 16:58 [facility] 1.8 mg/dl As of October 2022 testing method has changed, this may include reference ranges. MEAN PLATELET VOLUME 2025-01-31 16:58 [facility] 10.5 fl (missing) CHLORIDE 2025-01-31 16:58 [facility] 100 mmol/l As of October 2022 testing method has changed, this may include reference ranges. HGB - HEMOGLOBIN 2025-01-31 16:58 [facility] 13.3 g/dl (missing) SODIUM 2025-01-31 16:58 [facility] 134 mmol/l (mi ssing) RED CELL DISTRIBUTION WIDTH 2025-01-31 16:58 [facility] 14.8 % (missing) GLUCOSE 2025-01-31 16:58 [facility] 149 mg/dl As of October 2022 testing method has changed, this may include reference ranges. AST ASPARTATE AMINOTRANSFERASE 2025-01-31 16:58 [facility] 15 iu/l As of 2022 testing method has changed, this may include reference ranges. ALT ALANINE AMINOTRANSFERASE 2025-01-31 16:58 [facility] 15 iu/l As of 2022 testing method has changed, this may include reference ranges. BNP - B-NATRIURETIC PEPTIDE 2025-01-31 16:58 [facility] 160 pg/ml (missing) GLOBULIN 2025-01-31 16:58 [facility] 2.5 g/dl (mi ssing) BUN - BLOOD UREA NITROGEN 2025-01-31 16:58 [facility] 20 mg/dl As of October 2022 testing method has changed, this may include reference ranges. PLT - PLATELET COUNT 2025-01-31 16:58 [facility] 205 10 3/ul (missing) CARBON DIOXIDE - CO2 2025-01-31 16:58 [facility] 29 mm ol/l As of October 2022 testing method has changed, this may include reference ranges. NEUTROPHILS # (AUTO) 2025-01-31 16:58 [facility] 3.7 10 3/ul (missing) ALBUMIN 2025-01-31 16:58 [facility] 3.7 g/dl As of October 2022 testing method has changed, this may include reference ranges. MEAN CORPUSCULAR HEMOGLOBIN 2025-01-31 16:58 [facility] 30.2 pg (missing) MEAN CORPUSCULAR HGB CONC 2025-01-31 16:58 [facility] 31.9 g/dl (missing) POTASSIUM 2025-01-31 16:58 [facility] 4.4 mmol/l As of October 2022 testing method has changed, this may include reference ranges. RED BLOOD COUNT 2025-01-31 16:58 [facility] 4.41 10 6/ul (missing) HCT - HEMATOCRIT 2025-01-31 16:58 [facility] 41.7 % (missing) ANION GAP 2025-01-31 16:58 [facility] 5.0 (missing) (mi ssing) TOTAL PROTEIN 2025-01-31 16:58 [facility] 6.2 g/dl As of October 2022 testing method has changed, this may include reference ranges. ALKALINE PHOSPHATASE 2025-01-31 16:58 [facility] 60 iu /l As of October 2022 testing method has changed, this may include reference ranges. WHITE BLOOD COUNT 2025-01-31 16:58 [facility] 7.2 x10 3 /ul (missing) GFR - MDRD 2025-01-31 16:58 [facility] 80 (missing) Th e IDMS-traceable MDRD Study Equation has been validated extensively in and populations between the ages of 18 and 70 with impaired kidney function (eGFR < 60 mL/min/1.73m2) and has shown good performance for patients with all common causes of kidney disease. Although this equation has not been validated for patients older than 70, an MDRD-derived eGFR may still be a useful tool for providers caring for patients older than 70. References: http://www.nkdep.nih .gov/lab-evaluation/ gfr/creatinine-stand ardization, last updated June 2011. CALCIUM 2025-01-31 16:58 [facility] 9.6 mg/dl As of October 2022 testing method has changed, this may include reference ranges. MEAN CORPUSCULAR VOLUME 2025-01-31 16:58 [facility] 94.6 fl (missing) IONIZED CALCIUM IF INDICATED 2025-01-31 16:58 [facility] NO (missing) (missing) Result panel 112 White blood cell count 2025-02-12 14:46:07 [facility] 8 .6 X10^3/uL (missing) Result panel 113 Red blood cell count 2025-02-12 14:46:07 [facility] 4.2 5 X10^6/uL (missing) Result panel 114 Hemoglobin 2025-02-12 14:46:07 [facility] 12.9 g/d L (missing) Result panel 115 Hematocrit 2025-02-12 14:46:07 [facility] 38.9 % (missing) Result panel 116 MCV (mean corpuscular volume ) determination 2025-02-12 14:46:07 [facility] 91.5 fL (mis sing) Result panel 117 Mean corpuscular hemoglobin (MCH) determination 2025-02-12 14:46:07 [facility] 30.4 PG (missing) Result panel 118 Mean corpuscular hemoglobin concentration (MCHC) determination 2025-02-12 14:46:07 [facility] 33.3 % (mis sing) Result panel 119 Red cell distribution width determination 2025-02-12 14:46:07 [facility] 15.2 % (mis sing) Result panel 120 Platelet count 2025-02-12 14:46:07 [facility] 200 X10^3/uL (missing) Result panel 121 Automated neutrophil % 2025-02-12 14:46:07 [facility] 5 0.6 % (missing) Result panel 122 Automated lymphocyte % 2025-02-12 14:46:07 [facility] 2 8.6 % (missing) Result panel 123 Automated monocyte % 2025-02-12 14:46:07 [facility] 7.9 % (missing) Result panel 124 Automated eosinophil % 2025-02-12 14:46:07 [facility] 1 1.1 % (missing) Result panel 125 Automated basophil % 2025-02-12 14:46:07 [facility] 1.8 % (missing) Result panel 126 Absolute neutrophil [facility] 2025-02-12 14:[facility] ([facility] Result panel 127 Absolute lymphocyte count 2025-02-12 14:46:07 [facility] 2500 /uL (missing) Result panel 128 Automated blood monocyte count 2025-02-12 14:46:07 [facility] 700 /uL (missing) Result panel 129 Automated eosinophil count 2025-02-12 14:46[facility] ([facility] Result panel 130 Automated basophil count 2025-02-12 14:46:07 [facility] 200 /uL (missing) Result panel 131 Natriuretic peptide.B prohormone N-Terminal [Mass/volume] in Serum or Plasma 2025-02-12 14:46:07 [facility] 523 pg/mL (miss ing) Result panel 132 Sodium [Moles/volume] in Serum or Plasma 2025-02-12 14:46:07 [facility] 133 mmol/L ([facility]) Result panel 133 Potassium [Moles/volume] in Serum or Plasma 2025-02-12 14:46:07 [facility] 4.6 mmol/L ([facility]) Result panel 134 Chloride [Moles/volume] in Serum or Plasma 2025-02-12 14:46:07 [facility] 101 mmol/L ([facility]) Result panel 135 Carbon dioxide, total [Moles/volume] in Serum or Plasma 2025-02-12 14:46:07 [facility] 25 mmol/L (miss ing) Result panel 136 Urea nitrogen [Mass/volume] in Serum or Plasma 2025-02-12 14:46:07 [facility] Result panel 137 Creatinine [Mass/volume] in Serum or Plasma 2025-02-12 14:46:07 [facility] 1.01 [facility] Result panel 138 Glomerular filtration rate (GFR) estimation 2025-02-12 14:46:07 [facility] > 60 mL/min (missing) (missing) Result panel 139 BUN/creatinine ratio 2025-02-12 14:46:07 [facility] 23. 8 (missing) (missing) Result panel 140 Glucose [Mass/volume] in Serum or Plasma 2025-02-12 14:46:07 [facility] 130 mg/dL ([facility]) Result panel 141 Calcium [Mass/volume] in Serum or Plasma 2025-02-12 14:46:07 [facility] 9.1 mg/dL ([facility]) Result panel 142 Magnesium [Mass/volume] in Serum or Plasma 2025-02-12 14:46:07 [facility] 1.6 mg/dL ([facility]) Result panel 143 Bilirubin.total [Mass/volume ] in Serum or Plasma 2025-02-12 14:46:07 [facility] 0.6 mg/dL (missing) Result panel 144 Aspartate aminotransferase [Enzymatic activity/volume] in Serum or Plasma 2025-02-12 14:46:07 [facility] 32 IU/L ([facility]) Result panel 145 Alanine aminotransferase [Enzymatic activity/volume] in Serum or Plasma 2025-02-12 14:46:07 [facility] 22 IU/L ([facility]) Result panel 146 Alkaline phosphatase [Enzyma tic activity/volume] in Serum or Plasma 2025-02-12 14:46:07 [facility] 66 U/L (miss ing) Result panel 147 Protein total ser/plas 2025-02-12 14:46:07 [facility] 6 .8 g/dL (missing) Result panel 148 Albumin [Mass/volume] in Ser um or Plasma 2025-02-12 14:46:07 [facility] 3.9 g/dL (miss ing) Result panel 149 Globulin [Mass/volume] in Serum by calculation 2025-02-12 14:46:07 [facility] 2.9 g/dL (missing) Result panel 150 Albumin/Globulin [Mass Ratio] in Serum or Plasma 2025-02-12 14:46:07 [facility] 1.3 (miss ing) (missing) Result panel 151 Lipase [Enzymatic activity/volume] in Serum or Plasma 2025-02-12 14:46:07 [facility] 43 U/L (miss ing) Result panel 152 Serum or plasma creatine kinase MB measurement (mass/volume) 2025-02-12 14:46:07 [facility] 3.3 ng/mL (mis sing) Result panel 153 Influenza virus A RNA [Presence] in Upper respiratory specimen by NOLVIA with probe dete 2025-02-12 14:46:07 [facility] Flu a negative (missing) (missing) Result panel 154 Influenza virus B RNA [Presence] in Upper respiratory specimen by NOLVIA with probe dete 2025-02-12 14:46:07 [facility] Flu b negative (missing) (missing) Result panel 155 Respiratory syncytial virus RNA [Presence] in Nasopharynx by NOLVIA with probe detection 2025-02-12 14:46:07 [facility] Negative (missing) (missing) Result panel 156 White blood cell count 2025-02-12 14:46:07 [facility] 8 .6 X10^3/uL (missing) Result panel 157 Red blood cell count 2025-02-12 14:46:07 [facility] 4.2 5 X10^6/uL (missing) Result panel 158 Hemoglobin 2025-02-12 14:46:07 [facility] 12.9 g/d L (missing) Result panel 159 Hematocrit 2025-02-12 14:46:07 [facility] 38.9 % (missing) Result panel 160 MCV (mean corpuscular volume ) determination 2025-02-12 14:46:07 [facility] 91.5 fL (mis sing) Result panel 161 Mean corpuscular hemoglobin (MCH) determination 2025-02-12 14:46:07 [facility] 30.4 PG (missing) Result panel 162 Mean corpuscular hemoglobin concentration (MCHC) determination 2025-02-12 14:46:07 [facility] 33.3 % (mis sing) Result panel 163 Red cell distribution width determination 2025-02-12 14:46:07 [facility] 15.2 % (mis sing) Result panel 164 Platelet count 2025-02-12 14:46:07 [facility] 200 X10^3/uL (missing) Result panel 165 Automated neutrophil % 2025-02-12 14:46:07 [facility] 5 0.6 % (missing) Result panel 166 Automated lymphocyte % 2025-02-12 14:46:07 [facility] 2 8.6 % (missing) Result panel 167 Automated monocyte % 2025-02-12 14:46:07 [facility] 7.9 % (missing) Result panel 168 Automated eosinophil % 2025-02-12 14:46:07 [facility] 1 1.1 % (missing) Result panel 169 Automated basophil % 2025-02-12 14:46:07 [facility] 1.8 % (missing) Result panel 170 Absolute neutrophil count 2025-02-12 14:46:07 [facility] 4300 /uL (missing) Result panel 171 Absolute lymphocyte count 2025-02-12 14:46:07 [facility] 2500 /uL (missing) Result panel 172 Automated blood monocyte count 2025-02-12 14:46:07 [facility] 700 /uL (missing) Result panel 173 Automated eosinophil count 2025-02-12 14:46[facility] ([facility] Result panel 174 Automated basophil count 2025-02-12 14:46:07 [facility] 200 /uL (missing) Result panel 175 Natriuretic peptide.B prohormone N-Terminal [Mass/volume] in Serum or Plasma 2025-02-12 14:46:07 [facility] 523 pg/mL (formerly [facility]) Result panel 176 Sodium [Moles/volume] in Serum or Plasma 2025-02-12 14:46:07 [facility] 133 mmol/L ([facility]) Result panel 177 Potassium [Moles/volume] in Serum or Plasma 2025-02-12 14:46:07 [facility] 4.6 mmol/L ([facility]) Result panel 178 Chloride [Moles/volume] in Serum or Plasma 2025-02-12 14:46:07 [facility] 101 mmol/L ([facility]) Result panel 179 Carbon dioxide, total [Moles/volume] in Serum or Plasma 2025-02-12 14:46:07 [facility] 25 mmol/L (formerly [facility]) Result panel 180 Urea nitrogen [Mass/volume] in Serum or Plasma 2025-02-12 14:46:07 [facility] 24 mg/dL ([facility]) Result panel 181 Creatinine [Mass/volume] in Serum or Plasma 2025-02-12 14:46:07 [facility] 1.01 mg/dL ([facility]) Result panel 182 Glomerular filtration rate (GFR) estimation 2025-02-12 14:46:07 [facility] > 60 mL/min (missing) (missing) Result panel 183 BUN/creatinine ratio 2025-02-12 14:46:07 [facility] 23. 8 (missing) (missing) Result panel 184 Glucose [Mass/volume] in Serum or Plasma 2025-02-12 14:46:07 [facility] 130 mg/dL ([facility]) Result panel 185 Calcium [Mass/volume] in Serum or Plasma 2025-02-12 14:46:07 [facility] 9.1 mg/dL ([facility]) Result panel 186 Magnesium [Mass/volume] in Serum or Plasma 2025-02-12 14:46:07 [facility] 1.6 mg/dL ([facility]) Result panel 187 Bilirubin.total [Mass/volume ] in Serum or Plasma 2025-02-12 14:46:07 [facility] 0.6 mg/dL (missing) Result panel 188 Aspartate aminotransferase [Enzymatic activity/volume] in Serum or Plasma 2025-02-12 14:46:07 [facility] 32 IU/L ([facility]) Result panel 189 Alanine aminotransferase [Enzymatic activity/volume] in Serum or Plasma 2025-02-12 14:46:07 [facility] 22 IU/L ([facility]) Result panel 190 Alkaline phosphatase [Enzyma tic activity/volume] in Serum or Plasma 2025-02-12 14:46:07 [facility] 66 U/L (formerly [facility]) Result panel 191 Protein total ser/plas 2025-02-12 14:46:07 [facility] 6 .8 g/dL (missing) Result panel 192 Albumin [Mass/volume] in Ser um or Plasma 2025-02-12 14:46:07 [facility] 3.9 g/dL (formerly [facility]) Result panel 193 Globulin [Mass/volume] in Serum by calculation 2025-02-12 14:46:07 [facility] 2.9 g/dL (missing) Result panel 194 Albumin/Globulin [Mass Ratio] in Serum or Plasma 2025-02-12 14:46:07 [facility] 1.3 (formerly [facility]) (missing) Result panel 195 Lipase [Enzymatic activity/volume] in Serum or Plasma 2025-02-12 14:46:07 [facility] 43 U/L (formerly [facility]) Result panel 196 Influenza virus A RNA [Presence] in Upper respiratory specimen by NOLVIA with probe dete 2025-02-12 14:46:07 [facility] Flu a negative (missing) (missing) Result panel 197 Influenza virus B RNA [Presence] in Upper respiratory specimen by NOLVIA with probe dete 2025-02-12 14:46:07 [facility] Flu b negative (missing) (missing) Result panel 198 Respiratory syncytial virus RNA [Presence] in Nasopharynx by NOLVIA with probe detection 2025-02-12 14:46:07 [facility] Negative (missing) (missing) Result panel 199 Estimated Glomerular Filt Rate 2025-02-12 15:12 [facility] > 60 ml/min Reported eG FR is based the CKD-EPI 2020 equation that does not use a race coefficient. An eGFR below 60 mL/min/1.73m2 suggests that some kidney damage has occurred, and indicative of chronic kidney disease if persisting greater than 3 months. An eGFR less than 15 is indicative of kidney failure. Bilirubin Total 2025-02-12 15:12 [facility] 0.6 mg/dl (missing) Creatinine 2025-02-12 15:12 [facility] 1.01 mg/dl ( issing) Albumin Globulin Ratio 2025-02-12 15:12 [facility] 1.3 (missing) (missing) Magnesium 2025-02-12 15:12 [facility] 1.6 mg/dl (ga ssing) Basophils Percent Auto 2025-02-12 15:12 [facility] 1.8 % (missing) Eosinophils Absolute Auto 2025-02-12 15:12 [facility] 1000 /ul (missing) Chloride 2025-02-12 15:12 [facility] 101 mmol/l (ga ssing) Eosinophils Percent Auto 2025-02-12 15:12 [facility] 11.1 % (missing) Hemoglobin 2025-02-12 15:12 [facility] 12.9 g/dl ( issing) Glucose 2025-02-12 15:12 [facility] 130 mg/dl (ga ssing) Sodium 2025-02-12 15:12 [facility] 133 mmol/l (ga ssing) Red Cell Distribution Width 2025-02-12 15:12 [facility] 15.2 % (missing) Globulin 2025-02-12 15:12 [facility] 2.9 g/dl (ga ssing) Basophils Absolute Auto 2025-02-12 15:12 [facility] 200 /ul (missing) Platelet Count 2025-02-12 15:12 [facility] 200 x10 3/ul (missing) Alanine Aminotransferase 2025-02-12 15:12 [facility] 22 iu/l (missing) BUN Creatinine Ratio 2025-02-12 15:12 [facility] 23.8 (m issing) (missing) Blood Urea Nitrogen 2025-02-12 15:12 [facility] 24 mg/ dl (missing) Carbon Dioxide 2025-02-12 15:12 [facility] 25 mmol/l (missing) Lymphocytes Absolute Auto 2025-02-12 15:12 [facility] 2500 /ul (missing) Lymphocytes Percent Auto 2025-02-12 15:12 [facility] 28.6 % (missing) Albumin 2025-02-12 15:12 [facility] 3.9 g/dl (mi ssing) Mean Corpuscular Hemoglobin 2025-02-12 15:12 [facility] 30.4 pg (missing) Aspartate Aminotransferase 2025-02-12 15:12 [facility] 32 iu/l (missin g) Mean Corpuscular HGB Conc 2025-02-12 15:12 [facility] 33.3 % (missing) Hematocrit 2025-02-12 15:12 [facility] 38.9 % ( issing) Red Blood Cell Count 2025-02-12 15:12 [facility] 4.25 x1 0 6/ul (missing) Potassium 2025-02-12 15:12 [facility] 4.6 mmol/l (mi ssing) Lipase 2025-02-12 15:12 [facility] 43 u/l (mi ssing) Neutrophils Absolute Auto 2025-02-12 15:12 [facility] 4300 /ul (missing) Neutrophils Percent Auto 2025-02-12 15:12 [facility] 50.6 % (missing) Total Protein 2025-02-12 15:12 [facility] 6.8 g/dl (missing) Alkaline Phosphatase 2025-02-12 15:12 [facility] 66 u/ l (missing) Monocytes Percent Auto 2025-02-12 15:12 [facility] 7.9 % (missing) Monocytes Absolute Auto 2025-02-12 15:12 [facility] 700 /ul (missing) White Blood Cell Count 2025-02-12 15:12 [facility] 8.6 x10 3/ul (missing) Calcium 2025-02-12 15:12 [facility] 9.1 mg/dl (mi ssing) Mean Corpuscular Volume 2025-02-12 15:12 [facility] 91.5 fl (missing) Result panel 200 Estimated Glomerular Filt Rate 2025-02-12 15:21 [facility] > 60 ml/min Reported eG FR is based the CKD-EPI 2020 equation that does not use a race coefficient. An eGFR below 60 mL/min/1.73m2 suggests that some kidney damage has occurred, and indicative of chronic kidney disease if persisting greater than 3 months. An eGFR less than 15 is indicative of kidney failure. Troponin I 2025-02-12 15:21 [facility] 0.014 ng/ml Or tho Troponin-I Recommended Upper Reference Range & Cutoff The 99th Percentile URL: 0.034 ng/mL AMI Diagnostic Cutoff: 0.120 ng/mL Bilirubin Total 2025-02-12 15:21 [facility] 0.6 mg/dl (missing) Creatinine 2025-02-12 15:21 [facility] 1.01 mg/dl ( issing) Albumin Globulin Ratio 2025-02-12 15:21 [facility] 1.3 (missing) (missing) Magnesium 2025-02-12 15:21 [facility] 1.6 mg/dl (mi ssing) Chloride 2025-02-12 15:21 [facility] 101 mmol/l (mi ssing) Glucose 2025-02-12 15:21 [facility] 130 mg/dl (mi ssing) Sodium 2025-02-12 15:21 [facility] 133 mmol/l (mi ssing) Globulin 2025-02-12 15:21 [facility] 2.9 g/dl (mi ssing) Alanine Aminotransferase 2025-02-12 15:21 [facility] 22 iu/l (missin g) BUN Creatinine Ratio 2025-02-12 15:21 [facility] 23.8 ( issing) (missing) Blood Urea Nitrogen 2025-02-12 15:21 [facility] 24 mg/ dl (missing) Carbon Dioxide 2025-02-12 15:21 [facility] 25 mmol/l (missing) Albumin 2025-02-12 15:21 [facility] 3.9 g/dl (mi ssing) Aspartate Aminotransferase 2025-02-12 15:21 [facility] 32 iu/l (missin g) Potassium 2025-02-12 15:21 [facility] 4.6 mmol/l (mi ssing) Lipase 2025-02-12 15:21 [facility] 43 u/l (mi ssing) NT-proBNP (BNP-Adult 18+) 2025-02-12 15:21 [facility] 523 pg/ml The followi ng cut-points have been suggested for the use of proBNP for the diagnostic evaluation of heart failure (HF) in patients with acute dyspnea: Modality Age in Years Optimal Cut-Off -------- Heart Failure Unlikely: Exclusion Age Independent 300 pg/mL Heart Failure Likely: Diagnostic <50 450 pg/mL 50-75 900 pg/mL >75 1800 pg/mL The 300 pg/mL age-independent rule-out cutoff can be used to identify ED patients in whom HF (heart failuire) is unlikely and who need further investigations for non-cardiac causes of dyspnea. The natriuretic peptides values increase with age, therefore, applying age-dependent rule-in cutoffs (450, 900, and 1800 pg/mL) increases the specificity and positive predictive value for diagnosing patients in whom HF is likely. As mild natriuretic peptides elevations can be caused by non-HF conditions, VITROS NT-proBNP II test results between the exclusion and the diagnosis cutoffs should be considered in the context of the clinical presentation and physical examination in order to correctly identify or exclude HF. Total Protein 2025-02-12 15:21 [facility] 6.8 g/dl (missing) Alkaline Phosphatase 2025-02-12 15:21 [facility] 66 u/ l (missing) Calcium 2025-02-12 15:21 [facility] 9.1 mg/dl (mi ssing) Result panel 201 Influenza A - CEPHEID 2025-02-12 15:39 [facility] Flu A NEGATIVE (missing) (missing) Influenza B - CEPHEID 2025-02-12 15:39 [facility] Flu B NEGATIVE (missing) (missing) Respiratory Syncytial Virus 2025-02-12 15:39 [facility] Negative (missing) (missing ) COVID-19 CEPHEID 4-PLEX PCR 2025-02-12 15:39 [facility] Negative (missing) The [employer] SARS-CoV-2 test is a rapid, real-time RT-PCR test intended for the qualitative detection of nucleic acid from the SARS-CoV-2 in either nasopharyngeal, nasal, or mid-turbinate swab and/or nasal wash/ aspirate specimens collected from individuals suspected of COVID-19 by their healthcare provider. Results are for the detection of SARS-CoV-2 RNA. The SARS-CoV-2 RNA is generally detectable in upper respiratory specimens during the acute phase of infection. Positive results are indicative of active infection with SARS-CoV-2; clinical correlation with patient history and other diagnostic information is necessary to determine patient infection status. Positive results do not rule out bacterial infection or co-infection with other viruses. The agent detected may not be the definite cause of disease. Negative results do not preclude SARS-CoV-2 infection and should not be used as the sole basis for treatment or other patient management decisions. Negative results must be combined with clinical observations, patient history, and epidemiological information. The Xpert Xpress SARS-CoV-2 test is only for use under the Food and Drug Administrations Emergency Use Authorization. Result panel 202 X-ray report 2025-02-12 15:55 [facility] (missing) (mis sing) (missing) Result panel 203 X-ray report 2025-02-12 15:55 [facility] (missing) (mis sing) (missing) Result panel 204 Troponin I.cardiac [Mass/volume] in Serum or Plasma 2025-02-12 16:34:07 [facility] < 0.012 ng/mL (missing) (missing) Result panel 205 Troponin I.cardiac [Mass/volume] in Serum or Plasma 2025-02-12 16:34:07 [facility] < 0.012 ng/mL (missing) (missing) Result panel 206 Troponin I 2025-02-12 17:04 [facility] < 0.012 ng/ml Or tho Troponin-I Recommended Upper Reference Range & Cutoff The 99th Percentile URL: 0.034 ng/mL AMI Diagnostic Cutoff: 0.120 ng/mL Result panel 207 Emergency department note 2025-02-12 18:28 [facility] (missing) (missing) (missing ) Result panel 208 POC Glucose 2025-02-12 21:38 [facility] 300 mg/dl ( missing) Result panel 209 Creatine Kinase (CK), MB 2025-02-13 00:00 [facility] 3.3 ng/ml (missing) Result panel 210 Echocardiography report 2025-02-13 07:28 [facility] (mi ssing) (missing) (missing) Result panel 211 POC Glucose 2025-02-13 08:33 [facility] 169 mg/dl D elta: 300 on 02/12/25 Result panel 212 POC Glucose 2025-02-13 12:08 [facility] 177 mg/dl ( missing) Result panel 213 [facility] Creatine Kinase MB 2025-02-13 13:36 [facility] 3.3 ng/ml Performed a t: [place] - [facility] [address] [id number] [employer]: Sukh Lainez MD, Phone: [phone] Result panel 214 VBG HCO3 2025-03-31 04:26 [facility] 28.3 mmol/l (mi ssing) VBG TOTAL CO2 2025-03-31 04:26 [facility] 29.5 mmol/l (missing) VBG PCO2 2025-03-31 04:26 [facility] 39.0 mmhg (mi ssing) VBG BASE EXCESS 2025-03-31 04:26 [facility] 4.4 mmol/l (missing) VBG PH 2025-03-31 04:26 [facility] 7.465 (missing) (mi ssing) VBG PO2 2025-03-31 04:26 [facility] 76.2 mmhg (mi ssing) VBG OXYGEN SATURATION 2025-03-31 04:26 [facility] 95.0 % (missing) Social History date description facility 2025-02-12 00:00 Never smoked tobacco ([facility] Vital Signs date measurement value units 2025-02-12 00:00 BMI 26.0 kg/m2 2025-02-12 00:00 BP_diastolic 56 mmHg 2025-02-12 00:00 BP_systolic 116 mmHg 2025-02-12 00:00 heart_rate 92 /min 2025-02-12 00:00 height_metric 187.96 cm 2025-02-12 00:00 o2_saturation 90 % 2025-02-12 00:00 respiration_rate 40 /min 2025-02-12 00:00 temperature_standard 97.7 F 2025-02-12 00:00 weight_metric 89.50 kg 2025-02-12 00:00 weight_metric 91.98 kg 2025-02-13 00:00 BP_diastolic 96 mmHg 2025-02-13 00:00 BP_systolic 139 mmHg 2025-02-13 00:00 heart_rate 76 /min 2025-02-13 00:00 o2_saturation 98 % 2025-02-13 00:00 respiration_rate 20 /min 2025-02-13 00:00 temperature_standard 97.3 F
[2025-03-31 05:15] LABS: ALT ALANINE AMINOTRANSFERASE 13 IU/L (10-60); AST ASPARTATE AMINOTRANSFERASE 14 IU/L (10-42); BUN - BLOOD UREA NITROGEN 21 mg/dL (6-20); CARBON DIOXIDE - CO2 29 mmol/L (21-32); CREATININE 1.1 mg/dL (0.6-1.3); GFR - MDRD 63 (>89)
[2025-03-31 05:58] LABS: B. PARAPERTUSSIS- RESP PCR PAN NOT DETECTED; B. PERTUSSIS- RESP PCR PANEL NOT DETECTED; C. PNEUMONIAE- RESP PCR PANEL NOT DETECTED; CORONAVIRUS 229E-RESP PCR NOT DETECTED; CORONAVIRUS HKU1-RESP PCR NOT DETECTED; CORONAVIRUS NL63-RESP PCR NOT DETECTED; CORONAVIRUS OC43-RESP PCR NOT DETECTED; HUMAN METAPNEUMOVIRUS NOT DETECTED; INFLUENZA A- RESP PCR PANEL NOT DETECTED; INFLUENZA B - RESP PCR PANEL NOT DETECTED; M. PNEUMONIAE- RESP PCR PANEL NOT DETECTED; PARAINFLUENZA VIRUS 1 NOT DETECTED; PARAINFLUENZA VIRUS 2 NOT DETECTED; PARAINFLUENZA VIRUS 4 NOT DETECTED; RHINOVIRUS/ENTEROVIRUS NOT DETECTED; RSV- RESP PCR PANEL NOT DETECTED; SARS-CoV-2 -RESP PCR PANEL NOT DETECTED
--- NOTE | 2025-03-31 07:37 | XRAY Report ---
PROCEDURE: XR Chest 1V INDICATIONS: wheezing TECHNIQUE: One view of the chest was acquired. COMPARISON: 10/01/2022 FINDINGS: Surgical changes and devices: CABG. Lungs and pleura: No pleural effusions or pneumothorax. No consolidation. Mediastinum: Mediastinal contours appear normal. Heart size is normal. Bones and chest wall: No suspicious bony lesions. Overlying soft tissues appear unremarkable. IMPRESSION: No acute cardiopulmonary process. Findings are concordant with preliminary interpretation provided by [facility]. Reviewed by: Eugene Van MD on 03/31/2025 7:34 AM PST Approved by: Eugene Van MD on 03/31/2025 7:34 AM PST Station ID: [id number]
[2025-03-31] MEDS: IPRATROPIUM/ALBUTEROL 3 ML NEB INH STA (07:41)
--- NOTE | 2025-03-31 07:41 | CT Report ---
PROCEDURE: CT Angio Chest INDICATIONS: wheezing, soa CONTRAST: 70cc [id number] TECHNIQUE: After the administration of intravenous contrast images of the chest were acquired. 3-dimensional coronal oblique maximum intensity projection (MIP) reformats, axial MIP, and coronal and sagittal MPR reformats were then performed through the chest. For radiation dose reduction, the following was used: automated exposure control, adjustment of mA and/or kV according to patient size. COMPARISON: CT chest without contrast dated 03/13/2025 FINDINGS: Image quality: Excellent. Large vessels: No filling defects within the opacified pulmonary arteries, accounting for motion and contrast timing. No evidence of acute aortic syndrome or aortic aneurysm. Lungs and pleura: No consolidation. No pleural effusions. No pneumothorax. No suspicious pulmonary nodules which require follow up. Diffuse bilateral bronchial wall thickening with associated basilar bronchial narrowing. Findings consistent with bronchitis. Minimal bilateral pleural thickening. Mediastinum: Remote CABG. Heart size is normal. Severe coronary artery calcifications. No pericardial effusion. No large vessel abnormality. No mediastinal adenopathy by size criteria. Chest wall and lower neck: Thyroid is unremarkable. No axillary or supraclavicular adenopathy by size. Bones: No aggressive osseous abnormality. Upper Abdomen: Unremarkable. IMPRESSION: 1. No acute pulmonary emboli. 2. Findings consistent with bronchitis. 3. Remote CABG. Findings are concordant with preliminary interpretation provided by [facility]. Reviewed by: Eugene Van MD on 03/31/2025 7:38 AM [facility] Approved by: Eugene Van MD on 03/31/2025 7:38 AM PST Station ID: [id number]
--- NOTE | 2025-03-31 09:06 | ED Physician Documentation ---
ED Addendum Addendum Addendum: Assist the patient this morning after change of shift. He is resting on 2 L nasal cannula at 95% sats. He does have some abdominal excursion work of breathing. General wheeziness on lung sounds. Monitor showing some PVCs otherwise sinus rhythm. Blood pressure is adequate at 140 systolic. He is arousable to verbal and tactile. He is speaking in partial sentences. He states he does feel like he is working harder. His states his work of breathing is commonly difficult for the last couple of weeks at least. Denies recent cold or flu symptoms. History of COPD and CHF but does not have any rales per se and no leg edema. He has been taking his usual medicines which include furosemide and metoprolol and valsartan. He had been slated for admission overnight but there are no beds available because of staffing reportedly. Will see if any beds open this morning. He still seems he is on the cusp of his work of breathing. He has not been on oxygen at home so that at least is likely to need to be dealt with but the cause of the slower exacerbation over the last 2 or 3 weeks is still unclear. His and the patient states he has been having increasing dyspnea in particular the last few weeks but more chronic as well. Discharge Plan Discharge Condition: Stable Clinical Impression: Breath shortness Prescriptions: No Action metformin 500 MG tablet See Rx Instructions .Route .COMPLEX Rx Instructions: 3XQD leflunomide [Arava] 20 MG tablet See Rx Instructions .Route .COMPLEX Rx Instructions: QD metoprolol succinate 25 MG tablet extended release 24 hr See Rx Instructions .Route .COMPLEX Rx Instructions: QD cholecalciferol (vitamin D3) 5,000 UNIT capsule See Rx Instructions .Route .COMPLEX Rx Instructions: QD trospium 60 MG capsule,extended release 24hr See Rx Instructions .Route .COMPLEX Rx Instructions: QD silodosin [Rapaflo] 8 MG capsule See Rx Instructions .Route .COMPLEX Rx Instructions: QD cyanocobalamin (vitamin B-12) 5,000 MCG tablet,disintegrating See Rx Instructions .Route .COMPLEX Rx Instructions: QD Eliquis 5 MG tablet See Rx Instructions .Route .COMPLEX Rx Instructions: BID nitroglycerin 2.5 MG capsule, extended release See Rx Instructions .Route .COMPLEX Rx Instructions: PRN isosorbide mononitrate 30 MG tablet extended release 24 hr See Rx Instructions .Route .COMPLEX Rx Instructions: QD spironolactone [Aldactone] 25 MG tablet See Rx Instructions .Route .COMPLEX Rx Instructions: QD furosemide 20 MG tablet See Rx Instructions .Route .COMPLEX Rx Instructions: QD sacubitril-valsartan [Entresto] 1 EACH tablet See Rx Instructions .Route .COMPLEX Rx Instructions: QD [place] 81 MG capsule See Rx Instructions .Route .COMPLEX Rx Instructions: QD albuterol sulfate 2.5 mg /3 mL (0.083 %) solution for nebulization Patient Comments: INHALE THE CONTENTS OF 1 VIAL VIA NEBULIZER 4-6 TIMES DILY NEEDED gabapentin 100 mg capsule 100 mg PO QDAY albuterol sulfate [Ventolin HFA] 90 mcg/actuation HFA aerosol inhaler 2 puff inhalation Q6H PRN (Reason: shortness of breath or wheezing) Activity Restrictions/Additional Instructions: You were seen in the emergency department for medical evaluation. Your labwork and imaging uncovered no emergent issues. Please follow-up with your primary care provider and corrections officer and return to the emergency department if you have any new or worsening symptoms or other concerns. Print Language: French Patient Instructions: ED Shortness of Breath (Dyspnea) Stand Alone Forms: PCP List
[2025-03-31 09:28] LABS: VBG BASE EXCESS 4.0 mmol/L (-2 - +2); VBG PCO2 49.6 mmHg (41-51); VBG PH 7.376 (7.31-7.41); VBG PO2 61.6 mmHg (25-47); VBG TOTAL CO2 30.9 mmol/L (24-29)
[2025-03-31] MEDS: METOPROLOL SUCCINATE 25 MG TABLET PO SCH (09:35)
[2025-03-31] MEDS: APIXABAN 5 MG TABLET PO STA (09:35)
[2025-03-31] MEDS: FUROSEMIDE 20 MG TABLET PO STA (09:35)
[2025-03-31] MEDS: ASPIRIN EC 81 MG TABLET PO SCH (09:35)
[2025-03-31] MEDS: ISOSORBIDE MONONITRATE ER 30 MG TABLET PO SCH (09:35)
[2025-03-31] MEDS: METOPROLOL 5 MG/5 ML VIAL IVP STA (09:37)
[2025-03-31 09:45] LABS: BUN - BLOOD UREA NITROGEN 20.0 mg/dL (6-20); CARBON DIOXIDE - CO2 29.0 mmol/L (21-32); CREATININE 1.1 mg/dL (0.6-1.3); GFR - MDRD 63.0 (>89)
[2025-03-31] MEDS: DEXAMETHASONE 10 MG/ML VIAL IVP STA (10:47)
[2025-03-31] MEDS: LORazepam 2 MG/ML VIAL IVP STA (13:51)
--- NOTE | 2025-03-31 14:21 | ED Physician Documentation ---
ED Addendum Addendum Addendum: The patient remained in the ER awaiting open beds which were supposed to happen early afternoon at discharges. He still had work of breathing on my first of my most recent evaluation of him. Abdominal excursions and tachypnea though he was able to talk in sentences. He did not seem particularly confused. He did have general wheezing. His states that he is wheezing is fairly common and a lab work of breathing often but is not high on home oxygen. We had not tried him off oxygen recently. Currently he is running about 97% on nasal 2 L nasal cannula. But given that he had been hypoxic previously and still has work of breathing, I feel he is not stable for discharge. We did have beds available now and I talked with the hospitalist team Dr. Hidalgo who will come and see the patient. Discharge Plan Discharge Patient Disposition: ED Place in Observation Condition: Stable Clinical Impression: Breath shortness, Acute exacerbation of chronic obstructive pulmonary disease, Hypoxia Prescriptions: No Action metformin 500 MG tablet See Rx Instructions .Route .COMPLEX Rx Instructions: 3XQD leflunomide [Arava] 20 MG tablet See Rx Instructions .Route .COMPLEX Rx Instructions: QD metoprolol succinate 25 MG tablet extended release 24 hr See Rx Instructions .Route .COMPLEX Rx Instructions: QD cholecalciferol (vitamin D3) 5,000 UNIT capsule See Rx Instructions .Route .COMPLEX Rx Instructions: QD trospium 60 MG capsule,extended release 24hr See Rx Instructions .Route .COMPLEX Rx Instructions: QD silodosin [Rapaflo] 8 MG capsule See Rx Instructions .Route .COMPLEX Rx Instructions: QD cyanocobalamin (vitamin B-12) 5,000 MCG tablet,disintegrating See Rx Instructions .Route .COMPLEX Rx Instructions: QD Eliquis 5 MG tablet See Rx Instructions .Route .COMPLEX Rx Instructions: BID nitroglycerin 2.5 MG capsule, extended release See Rx Instructions .Route .COMPLEX Rx Instructions: PRN isosorbide mononitrate 30 MG tablet extended release 24 hr See Rx Instructions .Route .COMPLEX Rx Instructions: QD spironolactone [Aldactone] 25 MG tablet See Rx Instructions .Route .COMPLEX Rx Instructions: QD furosemide 20 MG tablet See Rx Instructions .Route .COMPLEX Rx Instructions: QD sacubitril-valsartan [Entresto] 1 EACH tablet See Rx Instructions .Route .COMPLEX Rx Instructions: QD [place] 81 MG capsule See Rx Instructions .Route .COMPLEX Rx Instructions: QD albuterol sulfate 2.5 mg /3 mL (0.083 %) solution for nebulization Patient Comments: INHALE THE CONTENTS OF 1 VIAL VIA NEBULIZER 4-6 TIMES DILY NEEDED gabapentin 100 mg capsule 100 mg PO QDAY albuterol sulfate [Ventolin HFA] 90 mcg/actuation HFA aerosol inhaler 2 puff inhalation Q6H PRN (Reason: shortness of breath or wheezing) Activity Restrictions/Additional Instructions: You were seen in the emergency department for medical evaluation. Your labwork and imaging uncovered no emergent issues. Please follow-up with your primary care provider and leadership program intern and return to the emergency department if you have any new or worsening symptoms or other concerns. Print Language: Lithuanian Patient Instructions: ED Shortness of Breath (Dyspnea) Stand Alone Forms: PCP List
--- NOTE | 2025-03-31 14:23 | HISTORY & PHYSICAL EXAMINATION ---
Chief Complaint Chief Complaint Chief Complaint: Shortness of breath History of Present Illness Admitted From Admitted From:: Home History Obtained From Records Reviewed: EMR History obtained from: Patient Exam Limitations: SHEL[place], hard of hearing History of Present Illness HPI Comment/Other: Patient is a 84-year-old male with a history of heart failure with reduced ejection fraction, severe obstructive sleep apnea who presents with worsening shortness of breath. History is taken on the phone from the as patient is having some active work of breathing with difficulty speaking, and is also very hard of hearing. Per her, he has been having progressive shortness of breath over the last few weeks. His primary care provider, Dimas No, has been seeing him weekly. Over the past few weeks, he has completed an antibiotic course, used inhalers, increased diuretics without any significant improvement in his breathing status. His also states that he has no formal diagnosis of COPD. He has former smoking history, but quit in the 1960s. He had PFTs done about 2 years ago, and the states that they were normal. He has been using inhalers for the past couple years as his breathing status has worsened. She states it worsened dramatically when they moved from [place] to [facility]. He has not been complaining of any fevers or chills. He does have a chronic cough with some sputum production, and sometimes he has inability to clear the secretions. He uses a BiPAP machine when he sleeping, or napping during the day. states that he has 2 machines that he alternates between, 1 in the bedroom, and 1 in the living room by his recliner. She has not noted an increase in him drinking fluids, or change in his diet or increase in the salt content. He is currently having no active chest pain. He feels better when he is sitting up on the side of the bed, and leaning forward. He still has some significant accessory muscle use. Past medical history includes atrial fibrillation on Eliquis, heart failure with reduced ejection fraction, rheumatoid arthritis on leflunomide, non-insulin dependent diabetes mellitus. Medications include Eliquis, Lasix, gabapentin, metformin, metoprolol, Entresto, spironolactone, aspirin. He has allergies to penicillins, tamsulosin, levofloxacin, hydrocodone. Surgical history includes a triple bypass in 2011, as well as multiple orthopedic surgeries. He denies any alcohol, tobacco currently, or recreational drug use. Lives with . Ambulates without assistance. Meds/Allgy Home Medications Ambulatory Orders Medication Instructions Recorded Confirmed apixaban 5 mg tablet (Eliquis) See Rx Instructions .Ro irene .COMPLEX 11/12/22 02/14/25 cholecalciferol (vitamin D3) 125 See Rx Instructions . Route .COMPLEX 11/12/22 02/14/25 mcg (5,000 unit) capsule cyanocobalamin (vitamin B-12) See Rx Instructions .Rou te .COMPLEX 11/12/22 02/14/25 5,000 mcg disintegrating tablet leflunomide 20 mg tablet (Arava) See Rx Instructions . Route .COMPLEX 11/12/22 02/14/25 metformin 500 mg tablet See Rx Instructions .Route . COMPLEX 11/12/22 02/14/25 metoprolol succinate 25 mg See Rx Instructions .Route .COMPLEX 11/12/22 02/14/25 tablet,extended release 24 hr silodosin 8 mg capsule (Rapaflo) See Rx Instructions . Route .COMPLEX 11/12/22 02/14/25 trospium 60 mg capsule,extended See Rx Instructions .R oute .COMPLEX 11/12/22 02/14/25 release 24 hr aspirin 81 mg capsule ([place]) See Rx Instructions . Route .COMPLEX 09/24/23 02/14/25 furosemide 20 mg tablet See Rx Instructions .Route . COMPLEX 09/24/23 02/14/25 isosorbide mononitrate 30 mg See Rx Instructions .Rout e .COMPLEX 09/24/23 02/14/25 tablet,extended release 24 hr nitroglycerin 2.5 mg See Rx Instructions .Route . COMPLEX 09/24/23 02/14/25 capsule,extended release sacubitril 24 mg-valsartan 26 mg See Rx Instructions . Route .COMPLEX 09/24/23 02/14/25 tablet (Entresto) spironolactone 25 mg tablet See Rx Instructions .Route .COMPLEX 09/24/23 02/14/25 (Aldactone) albuterol sulfate 90 mcg/actuation 2 puff inhalation Q 6H PRN 01/19/25 03/31/25 aerosol inhaler (Ventolin HFA) shortness of breath or wheezing gabapentin 100 mg capsule 100 mg PO QDAY 01/19/2501/26 albuterol sulfate 2.5 mg/3 mL 2.5 mg inhalation Q4H TX N 03/31/25 03/31/25 (0.083 %) solution for nebulization shortness of breat h or wheezing Allergies Allergies Allergy/AdvReac Type Severity Reaction Status Date / Time hydrocodone Allergy Unknown Verified 03/31/25 04:02 levofloxacin (From Levaquin) Allergy Unknown Verified 03/31/25 04:02 linagliptin (From Jentadueto) Allergy Unknown Verified 03/31/25 04:02 Penicillins Allergy Unknown Verified 03/31/25 04:02 tamsulosin (From Flomax) Allergy Unknown Verified 03/31/25 04:02 PFSH Active Problems All Active Problems (Updated 03/31/25 @ 16:31 by Derick Hernandez MD) Heart failure with reduced ejection fraction (Acute) Acute bronchitis (Acute) Acute hypoxic respiratory failure (Acute) Hypoxia (Acute) Acute exacerbation of chronic obstructive pulmonary disease (Acute) Breath shortness (Acute) Obstructive sleep apnea of adult (Chronic) Acute exacerbation of CHF (congestive heart failure) (Acute) Abdominal pain (Acute) Medical History Medical History Atrial fibrillation Atrial fibrillation Coronary artery disease Coronary artery disease Hypertension Hypertension Social History Social History Smoking Status: Former smoker If you are a former smoker, when did you quit? (Date/Year): Unsure - years ago Number of Years Smoked: 7 How many cigarettes a day do you smoke? (20 cigarettes=1 Pk): 8 Second hand tobacco smoke exposure: No Do you dip or chew tobacco?: No Do you vape?: No Level: Assisted Do you feel safe in your home environment?: Yes History of physical, verbal, emotional, or financial abuse?: No Substance Use: denies use POLST Patient has POLST: Yes Review of Systems Patient short of breath and very hard of hearing. Unable to elicit complete ROS. No chest pain, fevers, chills. +shortness of breath, cough, sputum production. Status of ROS: unobtainable due to medical condition Exam Exam Vital Signs: Vital Signs x48h Temp Pulse Pulse Resp BP BP Pulse Ox 03/31/25 15:54 74 24 03/31/25 14:57 97.7 F 83 24 126/86 97 03/31/25 14:55 97.9 F 66 22 123/66 94 03/31/25 14:00 97.9 F 63 22 117/57 L 94 03/31/25 12:49 03/31/25 12:00 90 22 114/68 96 03/31/25 11:00 88 30 H 137/76 H 95 03/31/25 09:42 71 32 H 135/84 H 97 03/31/25 09:00 79 22 139/91 H 96 O2 Flow Rate 03/31/25 15:54 2 03/31/25 14:57 2 03/31/25 14:55 2 03/31/25 14:00 2 03/31/25 12:49 2 03/31/25 12:00 2 03/31/25 11:00 2 03/31/25 09:42 2 03/31/25 09:00 2 Constitutional abnormal general appearance (disheveled), (chronically ill), (appears older than stated age) and (frail appearing), distress noted (moderate) and (respiratory), abnormal body habitus (thin), no limitations and alert HENMT normocephalic, head/scalp atraumatic and hearing grossly abnormal hard of hearing; deaf in L ear, no hearing aids Eyes PERRL, EOMs intact bilaterally and conjunctivae normal Neck/C-Spine visual inspection normal, trachea midline and cervical spine nontender Chest inspection of chest normal Respiratory breath sounds equal bilaterally, abnormal respiratory effort (shallow breathing), (pursed lip breathing) and (labored), clear to auscultation bilaterally, wheezing noted (expiratory wheezes) and (scattered wheezes), no rales and use of accessory muscles noted (abdominal muscle use, tripoding ) Cardiovascular heart rate abnormal, rhythm abnormal (irregular), no gallop, no rub and no murmur Gastrointestinal abdomen normal to inspection, abdomen soft to palpation, nontender to palpation and normoactive bowel sounds Genitourinary no CVA tenderness and bladder normal to palpation Back/Pelvis spine normal to inspection, no thoracic spine tenderness and no lumbar spine tenderness Extremities normal to inspection, normal to palpation, no tenderness and full ROM Neurology no movement abnormality noted and no focal motor deficit noted Psychiatry mental status grossly normal, oriented x3, thought process normal, cooperative and affect normal Skin skin color normal, no rash, no lesions and no wounds Conclusion/Plan Problem List (1) Acute hypoxic respiratory failure: (2) Acute bronchitis: Plan: The following plan is for the above two assessments: Patient presents with worsening dyspnea, diffuse expiratory wheezing, hypoxia on room air to 87%. Has been progressively worsening over the last 2 weeks. Has been following up with his PCP, and has trialed antibiotics, inhalers, diuresis without relief. CTA negative for PE, no pulmonary embolism. No pulmonary edema, no lobar consolidation. No cardiomegaly or pleural effusions noted. Patient with no definitive diagnosis of COPD or asthma. Per , PFTs completed 2 years ago were normal. Does use inhalers in the outpatient setting. Interstitial lung disease associated with rheumatoid arthritis is a possibility. Leflunomide toxicity is less likely as he has been on this for many years. PCP pneumonia can also be a possibility due to immunosuppresant use but he does not have typical radiographic evidence of it. Will order PCP testing. Procalcitonin is negative, will monitor off antibiotics at this time. Continue steroid burst for possible bronchitis. Continue DuoNebs every 4 hours. Increase oral Lasix to IV Lasix 20 mg twice daily to maintain negative fluid balance. Qualifiers: Bronchitis organism: unspecified organism Qualified Code(s): J20.9 - Acute bronchitis, unspecified (3) Heart failure with reduced ejection fraction: Plan: Unclear when last ECHO was performed. does not recall ui programmer name. She will bring in information tomorrow, and then will request records. Continue home medications: Imdur, metoprolol, Entresto, spironolactone. Slight fluid retention noted, some mild bibasilar crackles noted. Continue strict ins and outs, daily weights, cardiac diet. (4) Atrial fibrillation: Plan: Continue metoprolol, Eliquis. Qualifiers: Atrial fibrillation type: unspecified Qualified Code(s): I48.91 - Unspecified atrial fibrillation (5) Coronary artery disease: Plan: History of CABG x 3 in 2011. Continue aspirin. Continue Eliquis. Qualifiers: Associated angina: without angina Coronary Disease-Associated Artery/Lesion type: unspecified vessel or lesion type [place] vs. transplanted heart: [place] heart Qualified Code(s): I25.10 - Atherosclerotic heart disease of [place] coronary artery without angina pectoris (6) Hypertension: Plan: Continue Entresto, metoprolol, Imdur, spironolactone, Lasix. Qualifiers: Hypertension type: unspecified Qualified Code(s): I10 - Essential (primary) hypertension Lab Results Lab results reviewed: Yes 03/31/25 04:26 03/31/25 09:17 EKG Results EKG Interpreted Independently: Yes Core Measures Anticipated LOS I expect patient to be DC'd or transferred within 96 hours.: Yes Issues Hospital Issues and Management Plan: None anticipated. DVT/VTE - Prophylaxis VTE/DVT Prophylaxis med ordered at admit?: Yes Stroke - Rehab Assessment Rehab services assessment to be ordered?: No Not Ordered - Medical Reason: Not indicated AMI - Statin at Admit Aspirin Prescribed on Admit: No Not Ordered - Medical Reason: Not indicated
[2025-03-31] MEDS ORDERED: ACETAMINOPHEN 325 MG TABLET PO PRN (15:37)
[2025-03-31] MEDS ORDERED: ONDANSETRON ODT 4 MG TABLET TL PRN (15:37)
[2025-03-31] MEDS ORDERED: IPRATROPIUM/ALBUTEROL 3 ML NEB INH ONE (15:39)
[2025-03-31] MEDS: methylPREDNISolone SUCCINATE 40 MG/ML VIAL IVP STA (15:46)
[2025-03-31] MEDS: SODIUM CHLORIDE FLUSH 0.9% 10 ML SYRINGE IVP SCH (15:46)
[2025-03-31] MEDS: AZITHROMYCIN 250 MG TABLET PO SCH (15:46)
[2025-03-31] MEDS: IPRATROPIUM/ALBUTEROL 3 ML NEB INH SCH (15:52)
[2025-03-31] MEDS: FUROSEMIDE 20 MG/2 ML VIAL IVP SCH (17:53)
--- NOTE | 2025-03-31 17:55 | PHARMACY PROGRESS NOTE ---
Best Possible Medication History Admit Date and Time: 03/31/25 [id number] Home Medications Medication Instructions Recorded Confirmed Type apixaban 5 mg tablet (Eliquis) 5 mg PO BID 11/12/22 History leflunomide 20 mg tablet (Arava) 20 mg PO DAILY 03/31/25 History metoprolol succinate 25 mg 25 mg PO DAILY 11/12/2209/18 History tablet,extended release 24 hr silodosin 8 mg capsule (Rapaflo) 8 mg PO DAILY 3 03/31/25 History trospium 60 mg capsule,extended 60 mg PO DAILY 3 03/31/25 History release 24 hr furosemide 20 mg tablet 20 mg PO DAILY 09/24/2309/18 History isosorbide mononitrate 30 mg 30 mg PO DAILY 09/24/23 1 06/01/24 History tablet,extended release 24 hr sacubitril 24 mg-valsartan 26 mg 0.5 tab PO BID 03/31/25 History tablet (Entresto) spironolactone 25 mg tablet 12.5 mg PO DAILY 09/24/23 03/31/25 History (Aldactone) albuterol sulfate 90 mcg/actuation 2 puff inhalation Q 6H PRN 01/19/25 03/31/25 History aerosol inhaler (Ventolin HFA) shortness of breath or wheezing gabapentin 100 mg capsule 100 mg PO QPM 01/19/2503/31 History albuterol sulfate 2.5 mg/3 mL 2.5 mg inhalation Q4H DE N 03/31/25 03/31/25 History (0.083 %) solution for nebulization shortness of breat h or wheezing empagliflozin 10 mg tablet 10 mg PO DAILY 03/31/2509/18 History (Jardiance) Processed by: Pharmacy Medications reviewed in ED?: No Medication History completed: Yes Patient Interview: Pt unable to participate Secondary Source(s): Written medication list, Spouse/Significant other, Pharmacy records and Insurance records [facility] Statement: As the person ultimately responsible for medication therapy, providers are able to order a medication from an existing home medication list in [facility] via the "Reconcile Routine" prior to Confirmation of that medication by unit support representative. Such practice is discouraged except when the physician, in their clinical judgment, deems that a medical need exists for a medication without regard to previous use.
[2025-03-31] MEDS: methylPREDNISolone SUCCINATE 40 MG/ML VIAL IVP SCH (22:10)
[2025-03-31] MEDS: HALOPERIDOL 5 MG/ML VIAL IVP ONE (23:21)
--- NOTE | 2025-04-01 07:45 | PROVIDER PROGRESS NOTE ---
Subjective Subjective Subjective: Patient states that he feels better today. His shortness of breath is improving. He still has a cough, with some sputum production. He remains on 2 L of oxygen, we will continue to try to wean this down. His work of breathing has decreased. He denies any fevers or chills. Current Medications Current Medications Current Medications: Current Medications Generic Name Dose Route Start Last Admin Trade Name Freq PRN Reason Stop Dose Admin Acetaminophen 650 mg 03/31/25 15:37 Acetaminophen 325 Mg Tablet PO Q4HR PRN Pain 1 to 4, or Fever Albuterol/Ipratropium 3 ml 03/31/25 17:00 04/01/25 04:55 Ipratropium/Albuterol 3 Ml Neb INH 3 ml Q4HR ROGELIO Administration Aspirin 81 mg 03/31/25 09:00 03/31/25 09:35 Aspirin Ec 81 Mg Tablet PO 81 mg DAILY ROGELIO Administration Furosemide 20 mg 03/31/25 17:00 04/01/25 06:10 Furosemide 20 Mg/2 Ml Vial IVP 20 mg BIDDIURETIC ROGELIO Administration Guaifenesin 10 ml 04/01/25 12:00 Guaifenesin/Dextromethorphan 10 Ml Udc PO 04/03/25 11:59 Q6HR ROGELIO Isosorbide Mononitrate 30 mg 03/31/25 09:00 03/31/25 09:35 Isosorbide Mononitrate Er 30 Mg Tablet PO 30 mg DAILY ROGELIO Administration Methylprednisolone 40 mg 04/01/25 19:00 Methylprednisolone Succinate 40 Mg/Ml Vial IVP BID ROGELIO Metoprolol Succinate 25 mg 03/31/25 10:00 03/31/25 09:35 Metoprolol Succinate 25 Mg Tablet PO 25 mg DAILY ROGELIO Administration Ondansetron HCl 4 mg 03/31/25 15:37 Ondansetron Odt 4 Mg Tablet TL Q6HR PRN Nausea / Vomiting Sodium Chloride 10 ml 03/31/25 15:37 Sodium Chloride Flush 0.9% 10 Ml Syringe IVP PRN PRN NEEDED PER PROVIDER ORDERS Sodium Chloride 10 ml 03/31/25 17:00 03/31/25 23:49 Sodium Chloride Flush 0.9% 10 Ml Syringe IVP 10 ml 0100,0900,1700 ROGELIO Administration Objective Vital Signs/Intake & Output Reviewed Vital Signs: Yes Vital Signs: Vital Signs x48h Temp Pulse Pulse Resp BP Pulse Ox O2 Flow Rate 04/01/25 07:30 97.7 F 71 18 121/71 98 2 04/01/25 04:56 97.7 F 72 20 145/68 H 95 3 04/01/25 04:55 72 20 3 Intake & Output: Intake & Output 03/29/25 03/30/25 03/31/25 04/01/25 23:59 23:59 23:59 23:59 Intake Total 100 / 100 Balance 100 / 100 Weight (kg) 89.5 kg Objective Comments/Other: Constitutional abnormal general appearance (disheveled), (chronically ill), (appears older than stated age) and (frail appearing), distress noted (mild) and (respiratory), abnormal body habitus (thin), no limitations and alert HENMT normocephalic, head/scalp atraumatic and hearing grossly abnormal hard of hearing; deaf in L ear, no hearing aids Eyes PERRL, EOMs intact bilaterally and conjunctivae normal Neck/C-Spine visual inspection normal, trachea midline and cervical spine nontender Chest inspection of chest normal Respiratory breath sounds equal bilaterally, abnormal respiratory effort (shallow breathing), (pursed lip breathing) and (midly labored), wheezing noted (expiratory wheezes) and (scattered wheezes), no rales and use of accessory muscles noted (abdominal muscle use, tripoding ) Cardiovascular heart rate abnormal, rhythm abnormal (irregular), no gallop, no rub and no murmur Gastrointestinal abdomen normal to inspection, abdomen soft to palpation, nontender to palpation and normoactive bowel sounds Genitourinary no CVA tenderness and bladder normal to palpation Back/Pelvis spine normal to inspection, no thoracic spine tenderness and no lumbar spine tenderness Extremities normal to inspection, normal to palpation, no tenderness and full ROM Neurology no movement abnormality noted and no focal motor deficit noted Psychiatry mental status grossly normal, oriented x3, thought process normal, cooperative and affect normal Skin skin color normal, no rash, no lesions and no wounds Lab Results 04/01/25 08:24 04/01/25 08:24 Other Labs: Lab Results x24hrs 03/31/25 Range/Units 09:17 VBG pH 7.376 (7.31-7.41) VBG pCO2 49.6 (41-51) mmHg VBG pO2 61.6 H (25-47) mmHg VBG HCO3 29.4 H (23-28) mmol/L VBG Total CO2 30.9 H (24-29) mmol/L VBG O2 Saturation 89.0 H (60-80) % VBG Base Excess 4.0 H (-2 - +2) mmol/L Sodium 141 (135-145) mmol/L Potassium 3.6 (3.5-4.5) mmol/L Chloride 105 (101-111) mmol/L Carbon Dioxide 29 (21-32) mmol/L Anion Gap 7.0 (6-13) BUN 20 (6-20) mg/dL Creatinine 1.1 (0.6-1.3) mg/dL Estimated GFR (MDRD) 63 L (>89) Glucose 129 H (74-104) mg/dL Calcium 9.7 (8.5-10.3) mg/dL Magnesium 2.0 (1.7-2.3) mg/dL B-Natriuretic Peptide 152 H (5-100) pg/mL Procalcitonin Immunoas 0.09 (<0.5) ng/mL Assessment/Plan Problem List (1) Acute hypoxic respiratory failure: (2) Acute bronchitis: Impression: The following plan is for the above two assessments: Patient presents with worsening dyspnea, diffuse expiratory wheezing, hypoxia on room air to 87%. Has been progressively worsening over the last 2 weeks. Has been following up with his PCP, and has trialed antibiotics, inhalers, diuresis without relief. CTA negative for PE, no pulmonary embolism. No pulmonary edema, no lobar consolidation. No cardiomegaly or pleural effusions noted. Patient with no definitive diagnosis of COPD or asthma. Per , PFTs completed 2 years ago were normal. Does use inhalers in the outpatient setting. Interstitial lung disease associated with rheumatoid arthritis is a possibility. Leflunomide toxicity is less likely as he has been on this for many years. PCP pneumonia can also be a possibility due to immunosuppresant use but he does not have typical radiographic evidence of it. Will order PCP testing. Procalcitonin is negative, will monitor off antibiotics at this time. Continue steroid burst for possible bronchitis. Continue DuoNebs every 4 hours. Increase oral Lasix to IV Lasix 20 mg twice daily to maintain negative fluid balance. Patient continues to have some tachypnea, increased work of breathing, and requires oxygen. Likely will need 24 hours of IV diuresis and steroids. Qualifiers: Bronchitis organism: unspecified organism Qualified Code(s): J20.9 - Acute bronchitis, unspecified (3) Heart failure with reduced ejection fraction: Impression: Unclear when last ECHO was performed. does not recall certified surgical technologist name. She will bring in information, and then will request records. Continue home medications: Imdur, metoprolol, Entresto, spironolactone. Slight fluid retention noted, 1+ pitting edema, some mild bibasilar crackles noted. Continue strict ins and outs, daily weights, cardiac diet. (4) Atrial fibrillation: Impression: Continue metoprolol, Eliquis. Qualifiers: Atrial fibrillation type: unspecified Qualified Code(s): I48.91 - Unspecified atrial fibrillation (5) Coronary artery disease: Impression: History of CABG x 3 in 2011. Continue aspirin. Continue Eliquis. Qualifiers: Associated angina: without angina Coronary Disease-Associated Artery/Lesion type: unspecified vessel or lesion type [place] vs. transplanted heart: [place] heart Qualified Code(s): I25.10 - Atherosclerotic heart disease of [place] coronary artery without angina pectoris (6) Hypertension: Impression: Continue Entresto, metoprolol, Imdur, spironolactone, Lasix. Qualifiers: Hypertension type: unspecified Qualified Code(s): I10 - Essential (primary) hypertension
[2025-04-01 08:59] LABS: HCT - HEMATOCRIT 40.3 % (42.0-52.0); HGB - HEMOGLOBIN 12.1 g/dL (14.0-18.0); MEAN PLATELET VOLUME 10.9 fL (7.4-11.4); PLT - PLATELET COUNT 173.0 10^3/uL (130-450); RED CELL DISTRIBUTION WIDTH 15.2 % (12.0-15.0)
[2025-04-01 09:17] LABS: BUN - BLOOD UREA NITROGEN 24.0 mg/dL (6-20); CARBON DIOXIDE - CO2 30.0 mmol/L (21-32); CREATININE 1.1 mg/dL (0.6-1.3); GFR - MDRD 63.0 (>89)
[2025-04-01] MEDS: methylPREDNISolone SUCCINATE 40 MG/ML VIAL IVP SCH (18:23)
[2025-04-02] MEDS: SODIUM CHLORIDE FLUSH 0.9% 10 ML SYRINGE IVP PRN (06:05)
--- NOTE | 2025-04-02 07:54 | Discharge Summary ---
"Discharge Summary Admit Date: 03/31/25 Discharge Date: 04/02/25 Discharging Provider: Dr. Derick Hernandez Primary Care Provider: Dimas No Code Status: Do Not Attempt Resuscitation Discharge Facility Name: [facility] DIAGNOSES Discharge Diagnoses with Status of Each Condition: Acute hypoxic respiratory failure, acute bronchitispatient presented with worsening dyspnea, diffuse expiratory wheezing, and hypoxia on room air to 87%. CTA negative for PE, no pulmonary edema or lobar consolidation. PFT completed 2 years ago per are normal. Likely needs repeat PFTs. Does use inhalers in the outpatient setting. Interstitial lung disease associated with rheumatoid arthritis is a possibility. Leflunomide toxicity is less likely as he has been on this for many years. PCP pneumonia can also be a possibility due to immunosuppresant use but he does not have typical radiographic evidence of it. Will order PCP testing, follow up in the outpatient. Procalcitonin is negative, monitored off antibiotics. Received 3 days of IV steroids, will complete oral steroid course at home. Continue Lasix to maintain negative fluid balance at home as well. Heart failure with reduced ejection fractioncontinue home medications including Imdur, Toprol, Entresto, spironolactone, Lasix. Atrial fibrillationcontinue metoprolol and Eliquis. CADhistory of CABG in 2011, continue aspirin and Eliquis. Hypertensioncontinue Entresto, Toprol, Imdur, spironolactone, Lasix. HPI History of Present Illness: Patient is a 84-year-old male with a history of heart failure with reduced ejection fraction, severe obstructive sleep apnea who presents with worsening shortness of breath. History is taken on the phone from the as patient is having some active work of breathing with difficulty speaking, and is also very hard of hearing. Per her, he has been having progressive shortness of breath over the last few weeks. His primary care provider, Dimas No, has been seeing him weekly. Over the past few weeks, he has completed an antibiotic course, used inhalers, increased diuretics without any significant improvement in his breathing status. His also states that he has no formal diagnosis of COPD. He has former smoking history, but quit in the 1960s. He had PFTs done about 2 years ago, and the states that they were normal. He has been using inhalers for the past couple years as his breathing status has worsened. She states it worsened dramatically when they moved from [place] to [facility]. He has not been complaining of any fevers or chills. He does have a chronic cough with some sputum production, and sometimes he has inability to clear the secretions. He uses a BiPAP machine when he sleeping, or napping during the day. states that he has 2 machines that he alternates between, 1 in the bedroom, and 1 in the living room by his recliner. She has not noted an increase in him drinking fluids, or change in his diet or increase in the salt content. He is currently having no active chest pain. He feels better when he is sitting up on the side of the bed, and leaning forward. He still has some significant accessory muscle use. Past medical history includes atrial fibrillation on Eliquis, heart failure with reduced ejection fraction, rheumatoid arthritis on leflunomide, non-insulin dependent diabetes mellitus. Medications include Eliquis, Lasix, gabapentin, metformin, metoprolol, Entresto, spironolactone, aspirin. He has allergies to penicillins, tamsulosin, levofloxacin, hydrocodone. Surgical history includes a triple bypass in 2011, as well as multiple orthopedic surgeries. He denies any alcohol, tobacco currently, or recreational drug use. Lives with . Ambulates without assistance. CONSULTS | PROCEDURES Consultations: Respiratory therapy, physical therapy Procedures: CTA12/5no acute pulmonary emboli, findings consistent with bronchitis. Chest x-ray12/5no acute cardiopulmonary process. HOSPITAL COURSE Hospital Course: Patient is a 84-year-old male with history of heart failure with reduced ejection fraction, severe obstructive sleep apnea who presented with worsening shortness of breath. Attributed to likely acute bronchitis, possibly viral in nature. Received a steroid burst with some improvement of his symptoms. He was weaned down from 2 L to room air, and did well with an oxygen desaturation study. He also was found to have some bilateral lower extremity pitting edema, and some mild crackles on exam, and was started on IV diuresis. Physical therapy also worked with the patient, and recommended home with home health. Patient likely needs repeat PFTs. Does use inhalers in the outpatient setting. Interstitial lung disease associated with rheumatoid arthritis is a possibility. Leflunomide toxicity is less likely as he has been on this for many years. PCP pneumonia can also be a possibility due to immunosuppresant use but he does not have typical radiographic evidence of it. Will order PCP testing, follow up in the outpatient. Procalcitonin is negative, monitored off antibiotics. Received 3 days of IV steroids, will complete oral steroid course at home. Continue Lasix to maintain negative fluid balance at home as well. He was discharged home in stable condition, will need close follow-up with his primary care provider, cardiology, pulmonology. ALLERGIES Allergies Allergy/AdvReac Type Severity Reaction Status Date / Time hydrocodone Allergy Unknown Verified 03/31/25 04:02 levofloxacin (From Levaquin) Allergy Unknown Verified 03/31/25 04:02 linagliptin (From Jentadueto) Allergy Unknown Verified 03/31/25 04:02 Penicillins Allergy Unknown Verified 03/31/25 04:02 tamsulosin (From Flomax) Allergy Unknown Verified 03/31/25 04:02 MEDICATIONS Ambulatory Orders Medication Instructions Recorded Confirmed apixaban 5 mg tablet (Eliquis) 5 mg PO BID 11/12/22 leflunomide 20 mg tablet (Arava) 20 mg PO DAILY 03/31/25 metoprolol succinate 25 mg 25 mg PO DAILY 11/12/2209/18 tablet,extended release 24 hr silodosin 8 mg capsule (Rapaflo) 8 mg PO DAILY 3 03/31/25 trospium 60 mg capsule,extended 60 mg PO DAILY 3 03/31/25 release 24 hr furosemide 20 mg tablet 20 mg PO DAILY 09/24/2309/18 isosorbide mononitrate 30 mg 30 mg PO DAILY 09/24/23 1 06/01/24 tablet,extended release 24 hr sacubitril 24 mg-valsartan 26 mg 0.5 tab PO BID 03/31/25 tablet (Entresto) spironolactone 25 mg tablet 12.5 mg PO DAILY 09/24/23 03/31/25 (Aldactone) albuterol sulfate 90 mcg/actuation 2 puff inhalation Q 6H PRN 01/19/25 03/31/25 aerosol inhaler (Ventolin HFA) shortness of breath or wheezing gabapentin 100 mg capsule 100 mg PO QPM 01/19/2503/31 albuterol sulfate 2.5 mg/3 mL 2.5 mg inhalation Q4H CA N 03/31/25 03/31/25 (0.083 %) solution for nebulization shortness of breat h or wheezing empagliflozin 10 mg tablet 10 mg PO DAILY 03/31/2509/18 (Jardiance) mirabegron 50 mg tablet,extended 50 mg PO QPM 03/31/25 03/31/25 release 24 hr prednisone 20 mg tablet 40 mg (2 x 20 mg) PO DAILY 3 days 04/02/25 #6 tabs PHYSICAL EXAM AT DISCHARGE Vital Signs: Vital Signs x48h Temp Pulse Pulse Resp BP Pulse Ox 04/02/25 12:30 97.7 F 70 16 107/58 L 94 04/02/25 09:04 95 04/02/25 09:00 95 20 04/02/25 08:06 98.1 F 712 H 18 140/83 H 92 Constitutional abnormal general appearance (disheveled), (chronically ill), (appears older than stated age) and (frail appearing), abnormal body habitus (thin), no limitations and alert HENWV normocephalic, head/scalp atraumatic and hearing grossly abnormal hard of hearing; deaf in L ear, no hearing aids Eyes PERRL, EOMs intact bilaterally and conjunctivae normal Neck/C-Spine visual inspection normal, trachea midline and cervical spine nontender Chest inspection of chest normal Respiratory breath sounds equal bilaterally, no distress; minmial wheezing noted Cardiovascular heart rate abnormal, rhythm abnormal (irregular), no gallop, no rub and no murmur Gastrointestinal abdomen normal to inspection, abdomen soft to palpation, nontender to palpation and normoactive bowel sounds Genitourinary no CVA tenderness and bladder normal to palpation Back/Pelvis spine normal to inspection, no thoracic spine tenderness and no lumbar spine tenderness Extremities normal to inspection, normal to palpation, no tenderness and full ROM Neurology no movement abnormality noted and no focal motor deficit noted Psychiatry mental status grossly normal, oriented x3, thought process normal, cooperative and affect normal Skin skin color normal, no rash, no lesions and no wounds LABS 04/02/25 08:26 04/02/25 08:26 DIAGNOSTIC IMAGING Diagnostic Imaging Results: Final report reviewed FOLLOW UP Follow Up: Follow up with PCP. Follow up with cardiology. Follow up with pulmonology. TIME SPENT Time Spent in Discharge (Minutes): 35 Discharge Plan Discharge Patient Disposition: 06 Home Health Service Condition: Stable Prescriptions: New prednisone 20 mg tablet 40 mg PO DAILY 3 Days Qty: 6 0RF Continued leflunomide [Arava] 20 MG tablet 20 mg PO DAILY Rx Instructions: QD metoprolol succinate 25 MG tablet extended release 24 hr 25 mg PO DAILY Rx Instructions: QD trospium 60 MG capsule,extended release 24hr 60 mg PO DAILY Rx Instructions: QD silodosin [Rapaflo] 8 MG capsule 8 mg PO DAILY Rx Instructions: QD Eliquis 5 MG tablet 5 mg PO BID isosorbide mononitrate 30 MG tablet extended release 24 hr 30 mg PO DAILY Rx Instructions: QD spironolactone [Aldactone] 25 MG tablet 12.5 mg PO DAILY Rx Instructions: QD furosemide 20 MG tablet 20 mg PO DAILY Rx Instructions: QD sacubitril-valsartan [Entresto] 1 EACH tablet 0.5 tab PO BID Rx Instructions: QD albuterol sulfate 2.5 mg /3 mL (0.083 %) solution for nebulization 2.5 mg inhalation Q4H PRN (Reason: shortness of breath or wheezing) Patient Comments: INHALE THE CONTENTS OF 1 VIAL VIA NEBULIZER 4-6 TIMES DILY NEEDED Jardiance 10 mg tablet 10 mg PO DAILY Patient Comments: TAKE ONE TABLET BY MOUTH ONE TIME DAILY for chronic heart failure mirabegron 50 mg tablet extended release 24 hr 50 mg PO QPM gabapentin 100 mg capsule 100 mg PO QPM albuterol sulfate [Ventolin HFA] 90 mcg/actuation HFA aerosol inhaler 2 puff inhalation Q6H PRN (Reason: shortness of breath or wheezing) Activity Restrictions: Activity as Tolerated Diet: Regular Health Concerns: You have been diagnosed with acute bronchitis, which is an inflammation of the airways in your lungs. This condition is almost always caused by a virus and will get better on its own without antibiotics. What to Expect - Your cough will likely last 2 to 3 weeks. This is normal and does not mean you need antibiotics. - Some people may have a cough that lasts longer than 3 weeks. - You may cough up mucus of different colors (clear, white, yellow, or green). The color does not mean you have a bacterial infection. Antibiotics are not recommended for acute bronchitis because they do not help you get better faster and can cause side effects like nausea, vomiting, diarrhea, and allergic reactions. You have received a short course of steroids for this to be completed in the outpatient. For symptom relief, you may consider: - Dphb-[id number] cough suppressants (like dextromethorphan) - Pain relievers for body aches (like acetamienphen or ibuprofen) - Getting plenty of rest - Drinking fluids to stay hydrated Note that these treatments may provide some comfort but have not been proven to shorten the duration of your illness. Return to your doctor or seek medical attention if you develop: - Worsening symptoms or symptoms that do not improve after 3 weeks - Fever higher than 100.4F (38C) - Shortness of breath or difficulty breathing - Rapid breathing or rapid heart rate - Chest pain - Coughing up blood These symptoms may indicate pneumonia or another condition that requires different treatment. Important Reminders - Wash your hands frequently to prevent spreading the virus to others. - Cover your mouth when you cough. - If your cough persists beyond 2-3 weeks or you develop severe coughing fits with vomiting, contact your doctor as you may need testing for other conditions like pertussis (whooping cough). As we discussed, I would like you to complete further pulmonary function testing in the outpatient setting. I would also like you to see a gas appliance servicer helper. I understand that you have been having more episodes of shortness of breath, and has not been formally diagnosed with any lung condition. While you were here, you also worked with physical therapy, who recommended home with home health. Home health provider will be coming by and assessing her needs; I suspect that they may recommend further physical therapy, as well as a bath aide at home. I am glad you have an appointment with your primary care provider on 04/17 so they can provide you with this referral. Thank you for letting us take care of you. We are glad you are feeling better. Print Language: Malay Patient Instructions: Acute Bronchitis, ED Shortness of Breath (Dyspnea) Stand Alone Forms: PCP List Follow-up Care: Dimas No MD [Primary Care Provider, Internal Medicine] Vitals documented within 30 minutes of discharge?: Yes"
[2025-04-02] MEDS: methylPREDNISolone SUCCINATE 40 MG/ML VIAL IVP SCH (08:09)
[2025-04-02 08:39] LABS: HCT - HEMATOCRIT 40.4 % (42.0-52.0); HGB - HEMOGLOBIN 12.9 g/dL (14.0-18.0); MEAN PLATELET VOLUME 10.7 fL (7.4-11.4); PLT - PLATELET COUNT 217.0 10^3/uL (130-450); RED CELL DISTRIBUTION WIDTH 15.0 % (12.0-15.0)
[2025-04-02 09:04] LABS: BUN - BLOOD UREA NITROGEN 29.0 mg/dL (6-20); CARBON DIOXIDE - CO2 31.0 mmol/L (21-32); CREATININE 1.1 mg/dL (0.6-1.3); GFR - MDRD 63.0 (>89)
--- OUTSIDE RECORDS SUMMARY | 2025-04-02 09:26 | EXTERNAL MEDICAL SUMMARY RPT | Encounter Summary ---
Author Organization [facility] Address [address] [place] [address] Care Team Providers Care Powertrain Calibration Engineer Name Role Phone Shad Reardon Primary Care Provider [phone] Encounter Details Date Type Department Care Team (Late Contact Info) Description 11/27/2022 Orders Only [facility] Cardiology [address] [address] Olinda Driscoll MD [address] [place] [id number] Shortness of breath Social History Tobacco Use Types Packs/Day Years Used Date Smoking Tobacco: Former Cigarettes 0.3 7 1 957 - 4453 Passive Smoke Exposure: Never Smokeless Tobacco: Never Alcohol Use Standard Drinks/Week Comments Never 0 (1 standard drink = 0.6 oz pur e alcohol) Sex and Gender Information Value Date Recorded Sex Assigned at Not on file Legal Sex Male 10:33 AM PDT Gender Identity Not on file Sexual Orientation Not on file documented as of this encounter Plan of Treatment Upcoming Encounters Date Type Department Care Team (Late st Contact Info) Description 04/10/2025 11:00 AM PST Office Visit [facility] Cardiology [address] [phone] Vinay Abbasi ARNP [address] [place] [phone] 07/21/2025 11:00 AM PDT Office Visit [facility] Card[facility] [address], [place] [phone] Olinda Driscoll MD [address] [place] [address] [address] [place] [address] documented as of this encounter Visit Diagnoses Diagnosis Shortness of breath documented in this encounter Care Teams Powertrain Calibration Engineer Relationship Specialty Start Date End Date Shad Reardon [address] [place] [address] PCP - General Family Medicine 02/08/25 documented as of this encounter
--- OUTSIDE RECORDS SUMMARY | 2025-04-02 09:26 | EXTERNAL MEDICAL SUMMARY RPT | Encounter Summary ---
Author Organization [facility] Address [address] [place] [address] Care Team Providers Care Editor Magazine Name Role Phone Shad Reardon Primary Care Provider [phone] Encounter Details Date Type Department Care Team (Late Contact Info) Description 12/19/2022 Orders Only [facility] Cardiology [address], [place] [address] Olinda Driscoll MD [address] [place] [address] Chronic systolic heart failure ([facility]) Social History Tobacco Use Types Packs/Day Years Used Date Smoking Tobacco: Former Cigarettes 0.3 7 1 957 - 5062 Passive Smoke Exposure: Never Smokeless Tobacco: Never [...] Description 04/10/2025 11:00 AM PST Office Visit [facility] Cardiology [address], [address] [phone] Vinay Abbasi ARNP [address] [place] [phone] 07/21/2025 11:00 AM PDT Office Visit [facility] Cardiology [place] [address] [facility], [place] [address] Olinda Driscoll MD [facility] [address] [place] [address] [address] [place] [address] documented as of this encounter Procedures Procedure Name Priority Date/Time Associated Diagnosis Comments BASIC METABOLIC PANEL Routine 12/18/2022 7:37 AM PDT Chronic systolic heart failure (CMS-HCC) documented in this encounter Results * (ABNORMAL) Basic Metabolic Panel Expires 12 Months (12/18/2022 7:37 AM PDT) Glucose 177(H) 70 - 99 mg/dL [facility] 001 BUN 24 8 - 27 mg/dL [facility] 001 Creatinine 1.06 0.76 - 1.27 mg/dL [facility] 001 eGFR (CKD-EPI 2020) 69 >59 mL/min/1.7 3 [facility] 001 BUN/Creatinine Ratio 23 10 - 24 [facility] 001 Sodium 138 134 - 144 mmol/L [facility] 001 Potassium 4.4 3.5 - 5.2 mmol/L [facility] 001 Chloride 103 96 - 106 mmol/L [facility] 001 CO2 22 20 - 29 mmol/L [facility] 001 Calcium 9.7 8.6 - 10.2 mg/dL [facility] 001 Blood Venous blood / Unknown 12/18/2022 7:37 AM PDT 12/17/2022 9:00 PM PDT Narrative [facility] - 12/19/2022 3:09 AM PDT Performed at: 01 - [facility] [facility] [address], [place], [place] [id number] Geophysics Professor: Sukh Lainez MD, Phone: [phone] Specimen Comment: A courtesy copy of this report has been sent to [phone], [phone] Specimen Comment: [phone] us Olinda Driscoll MD LAB BLOOD ORDERABLES Final R esult [facility] [address] [address], [facility] 001 documented in this encounter Visit Diagnoses Diagnosis Chronic systolic heart failure (CMS/HCC) Chronic systolic heart failure documented in this encounter Care Teams Editor Magazine Relationship Specialty Start Date End Date Shad Reardon [address] [place] [address] PCP - General Family Medicine 02/08/25 documented as of this encounter
--- OUTSIDE RECORDS SUMMARY | 2025-04-02 09:26 | EXTERNAL MEDICAL SUMMARY RPT | Encounter Summary ---
Author Organization [facility] Address [address] [place] [address] Care Team Providers Care Contract Preparer Name Role Phone Shad Reardon Primary Care Provider [phone] Encounter Details Date Type Department Care Team ([facility] Contact Info) Description 11/21/2022 Orders Only [facility] Th[facility] [place] [address] [place] [address] [place] [address] Torres Glynn MD [address] [place] [phone] Chronic pansinusitis Social History Tobacco Use Types Packs/Day Years Used Date Smoking Tobacco: Former Cigarettes 0.3 7 1 957 - 1964 Passive Smoke Exposure: Never Smokeless Tobacco: Never [...] Upcoming Encounters Date Type Department Care Team ([facility] Contact Info) Description 04/10/2025 11:00 AM PST Office Visit [facility] Cardiology [address], [address] [place] [phone] Vinay Abbasi ARNP [address] [address] 07/21/2025 11:00 AM PDT Office Visit [facility] Cardiology [address], [place] [address] Olinda Driscoll MD [address] [place] [address] [address] [place] [address] documented as of this encounter Procedures Procedure Name Priority Date/Time Associated Diagnosis Comments CT SINUS WITHOUT CONTRAST Routine 10/09/2022 Chronic pansinusitis documented in this encounter Results * CT SINUS WITHOUT CONTRAST (10/09/2022) us Torres Glynn MD [facility] CT PROCEDURES Final R esult documented in this encounter Visit Diagnoses Diagnosis Chronic pansinusitis Other chronic sinusitis documented in this encounter Care Teams Contract Preparer Relationship Specialty Start Date End Date Shad Reardon [address] [place] [address] PCP - General Family Medicine 02/08/25 documented as of this encounter
--- OUTSIDE RECORDS SUMMARY | 2025-04-02 09:26 | EXTERNAL MEDICAL SUMMARY RPT | Encounter Summary ---
Author Organization [facility] Address [address] [place] [address] Care Team Providers Care Novelty Twister Operator Name Role Phone Shad Reardon Primary Care Provider [phone] Encounter Details Date Type Department Care Team (Late Contact Info) Description 02/12/2023 Abstract [facility] Cardiology [address], [facility] [place] [address] Anselmo Antonio [address] [phone] Social History Tobacco Use Types Packs/Day Years Used Date Smoking Tobacco: Former Cigarettes 0.3 7 1 957 - 3307 Passive Smoke Exposure: Never Smokeless Tobacco: Never [...] Description 04/10/2025 11:00 AM PST Office Visit [facility] Cardiology [address] [phone] Vinay Abbasi [address] [phone] 07/21/2025 11:00 AM PDT Office Visit [facility] Cardiology [address], [place] [phone] Olinda Driscoll MD [address] [place] [address] [address] [place] [address] documented as of this encounter Visit Diagnoses Not on filedocumented in this encounter Care Teams Novelty Twister Operator Relationship Specialty Start Date End Date Shad Reardon [address] [place] [address] PCP - General Family Medicine 02/08/25 documented as of this encounter
--- OUTSIDE RECORDS SUMMARY | 2025-04-02 09:26 | EXTERNAL MEDICAL SUMMARY RPT | Patient Health Record ---
Author Organization [facility] Address [address] [place] [address] Care Team Providers Care Candy Spreader Name Role Phone ShawneeColton campbell Primary Care Provider UnavailKenneth Dugan M.D Unavailable Jody Freeman M.D. Unavailable Unavailable Allergies Allergen (clinical drug ingredient) Drug/Non Drug Allergy documented on EMR Reaction Allergy Type Onset Date Status Penicillin Unknown Drug Allergy Active linagliptin / metformin Jentadueto Unknown Drug Allergy Active Levaquin Unknown Drug Allergy Active Hydrocodone Bitartrate Unknown Drug Allergy Active tamsulosin Flomax Unknown Drug Allergy Active Reason For Referral No Information Medications Medication SIG (Take, Route, Frequency, Duration) Notes Start Date End Date Status Lisinopril 20 MG 1.5 tablet Orally On ce a day; Duration: 30 days Active Isosorbide Dinitrate 20 MG 1 tablet Oral ly Twice a day; Duration: 30 day(s) 04/29/2022 Active Furosemide 20 MG 1 tablet Orally Once a day Active Resveratrol 500 mg Orally once a day Active Vitamin B12 2500mcg Active Zetia 10 MG 1 tablet Orally Once a day; Duration: 90 days Active Potassium Chloride CR 20 MEQ 1 tablet with food Orally Once a day; Duration: 30 day(s) Active Silodosin 8 MG 1 capsule with a miguel l Orally Once a day; Duration: 30 day(s) Active Rosuvastatin Calcium 20 MG 1 tablet Oral ly Thursday, Thursday, Thursday; Duration: 90 days Active Trospium Chloride ER 60 MG 1 capsule in the morning on an empty stomach or 1 hour before a meal Orally Once a day; Duration: 30 day(s) Active Leflunomide 20 MG 1 tablet Orally Once a day Active metFORMIN HCl 500 MG 3 tab Orally Once a day Active Vitamin D3 5000 UNIT Orally Every other day Active Metoprolol Succinate ER 25 MG 1 tablet Orally Once a day; Duration: 90 days Active Potassium Chloride Sari ER 20 MEQ TAKE 1 TABLET BY MOUTH ONCE A DAY Active Eliquis 5 MG 1 tablet Orally Twic e a day; Duration: 90 day(s) Active Social History Tobacco Use: Social History Observation Description Date Details (start date - stop date) Former Smoker NA - NA Smoking: Question Answer Notes status: former smoker smoked 1/2 pack x7 years, quit in 1963 Problems Problem Type SNOMED Code ICD Code Onset Dates Problem Status W/U Status Risk Notes Problem Type II diabetes mellitus without complication (273554488) Diabetes (E11.9) Active confirmed Problem Essential hypertension (18394740) Essential hypertension (I10) Active confirmed Problem Hypercholesterolemia (95541857) Hypercholesterolemia (E78.0) Active confirmed Problem Dyspnea on exertion (95139046) Dyspnea on exertion (R06.09) Active confirmed Problem Pure hypercholesterolemia (623426897) Pure hypercholesterolemia (E78.0) Active confirmed Problem Paroxysmal atrial fibrillation (724555362) Paroxysmal atrial fibrillation (I48.0) Active confirmed Problem Preoperative cardiovascular examination (096030610) Preoperative cardiovascular examination (Z01.810) Active confirmed Problem Chronic obstructive pulmonary disease (24894359) Chronic obstructive pulmonary disease, unspecified (J44.9) Active confirmed Problem Exertional angina (137624667) Exertional angina (I20.8) Active confirmed Problem History of coronary artery bypass grafting (117730654) History of coronary artery bypass graft (Z95.1) Active confirmed Problem Polyneuropathy (30391495) Polyneuropathy in diseases classified elsewhere (G63) Active confirmed Problem Angina pectoris with documented spasm (33459597) 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) Active confirmed Problem Chronic fatigue syndrome (35140498) Chronic fatigue (R53.82) Active confirmed Problem hypercholesterolemia (disorder) (67627749) Hypercholesteremia (E78.00) Active confirmed Problem Acute systolic heart failure (163599826) Acute systolic congestive heart failure (I50.21) Active confirmed Problem Acute diastolic hear t failure (373280201) Acute diastolic congestive heart failure (I50.31) Active confirmed Plan Of Treatment Pending Test Test Name Order Date COPY(IES) SENT TO: 08/23/2021 HEPATIC FUNCTION PANEL 08/23/2021 Future Test Test Name Order Date LIPID PANEL 03/30/2019 LIVER PANEL (HEPATIC FUNCTION PANEL) 07/2018 LIPID PROFILE 09/10/2020 LIPID PANEL 03/04/2021 Liver Panel 03/04/2021 LIPID PANEL 09/02/2021 Liver Panel 09/02/2021 LIPID PANEL 11/25/2021 Insurance Providers Payer Name Payer Address Payer Phone Subscriber Number Group Number Insured Name Patient Relationship to Insured Coverage Start Date Coverage End Date [employer] [place] Part B [address] [place] [phone] [id number] Donaldo Webb Self - patient is the insured [employer] [address] [place] [address] [id number] Donaldo Webb Self - patient is the insured 8 Medical (General) History Medical History History ICD Code paroxysmal atrial fibrillati on with cryoablation 08/29/[address] Nicholas. Atrial flutter also ablated 08/29/14. 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 Closure of left atrial appendage 05/10/15 Vital capacity mildl y reduced reduced FEF 25-75 mildly hyperactive airways disease with response to bronchodilators. No reduction in diffusing capacity 06/24/11 ejection fraction 55-60% 04/11HbA1c 6.5 liver pane l fine creatinine1.35GFR 50potassium 4.1cholesterol 139 HDL 31, platelet 179 and LDL 72 12/14/15 A1c 7.0 liver panel fine creatinine 1.37 glucose 160 cholesterol 187 HDL 34 triglycerides 259 LDL 101 GFR 59 potassium 4.3 03/31/16 cholesterol 133 HDL 38 triglycerides 115 LDL 72 creatinine 0.67 potassium 4.2 A1c 6.8 liver panel okay hemoglobin 9.3 05/14/16 ejection fraction 73 % mild concentric left ventricular hypertrophy trace mitral tricuspid regurgitation 05/13/16 and glucose 153 creatinine 1.57 GFR 44 potassium 4.3 12/02/16 ejection fraction 64% Lexiscan Cardiolite shows intermediate to large lateral and apical lateral defect which is predominantly fixed with mild. maik Infarct ischemia 01/12/17 cholesterol 132 HDL 36TG 199 LDL 69 paroxysmal atrial fibrillati on with cryoablation 08/29/[address] Nicholas. Atrial flutter also ablated 08/29/14. 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 Closure of left atrial appendage 05/10/15 Vital capacity mildl y reduced reduced FEF 25-75 mildly hyperactive airways disease with response to bronchodilators. No reduction in diffusing capacity 06/24/11 ejection fraction 55-60% 2014 - There was severe golden ve disease with 80% distal left main coronary artery disease at origin of LAD and mid LAD of 60% with circumflex artery having a 70% proximal lesion and a distal 60% lesion and occluded obtuse marginal with right coronary artery 80% proximal lesion and a distal lesion of 90% and a 40% lesion in the PLV. 04/11HbA1c 6.5 liver pane l fine creatinine1.35GFR 50potassium 4.1cholesterol 139 HDL 31, platelet 179 and LDL 72 12/14/15 A1c 7.0 liver panel fine creatinine 1.37 glucose 160 cholesterol 187 HDL 34 triglycerides 259 LDL 101 GFR 59 potassium 4.3 03/31/16 cholesterol 133 HDL 38 triglycerides 115 LDL 72 creatinine 0.67 potassium 4.2 A1c 6.8 liver panel okay hemoglobin 9.3 05/14/16 ejection fraction 73 % mild concentric left ventricular hypertrophy trace mitral tricuspid regurgitation 05/13/16 and glucose 153 creatinine 1.57 GFR 44 potassium 4.3 12/02/16 ejection fraction 64% Lexiscan Cardiolite shows intermediate to large lateral and apical lateral defect which is predominantly fixed with mild. maik Infarct ischemia 01/12/17 cholesterol 132 HDL 36TG 199 LDL 69 07/28/18 Glucose 124, Creatini ne 1.2, GFR 58, Liver Panel fine, Total cholesterol 222, HDL 34, Triglycerides 234, LDL 141, TSH 2.28 10/27/18 - Echo showed EF of 63%, mild concentric LVH, left atrium mildly dilated, aortic valve moderately thickened, moderate aortic valve sclerosis without stenosis, mild mitral annular calcification, [id number] mitral and tricuspid regurg, RVSP - 29 mmHg+CVP 02/10/19 - Cholesterol - 191, HDL - 35, Triglycerides - 160, LDL - 124 12/15/2019 - Hemoglobin - 15 .2, Glucose - 141, liver panel fine, Potassium - 5.0, GFR - 63, Creatinine - 1.10 03/08/21-cholesterol 182, HD L 42, LDL 119, glucose 131, creatinine 1.12, GFR 61, sodium 138, potassium 4.2, liver panel normal, HbA1c 6.1, BNP 147, TSH 3.84 12/27/20-cholesterol 193, HDL 33, LDL 130, triglycerides 152 08/15/21 creatinine 1.09, eG FR 62, sodium 136, potassium 4.2, liver normal, HbA1c 6.2, 08/15/21 Cholesterol 149, HDL 36, LDL 90 hemoglobin 15.0
--- OUTSIDE RECORDS SUMMARY | 2025-04-02 09:27 | EXTERNAL MEDICAL SUMMARY RPT | Encounter Summary ---
Author Organization [facility] Address [address] [place] [address] Care Team Providers Care Grocery Stock Clerk Name Role Phone Shad Reardon Primary Care Provider [phone] Encounter Details Date Type Department Care Team ([facility] Contact Info) Description 04/25/[address] [facility] Cardiology [address], [facility] [place] [address] Olinda Driscoll MD [address] [place] [phone] Dyslipidemia Social History Tobacco Use Types Packs/Day Years Used Date Smoking Tobacco: Former Cigarettes 0.3 7 1 957 - 8217 Passive Smoke Exposure: Never Smokeless Tobacco: Never [...] Encounters Date Type Department Care Team (Late Contact Info) Description 04/10/2025 11:00 AM PST Office Visit [facility] Cardiology [address] [phone] Vinay Abbasi ARNP [address] [place] [address] [phone] 07/21/2025 11:00 AM PDT Office Visit [facility] Cardiology [address], [place] [phone] Olinda Driscoll MD [address] [place] [address] [address] [place], [place] [phone] documented as of this encounter Procedures Procedure Name Priority Date/Time Associated Diagnosis Comments LIPID PANEL Routine 04/22/2024 5:14 AM PST Dyslipidemia COMPREHENSIVE METABOLIC PANEL Routine 04/22/2024 5:14 AM PST Dyslipidemia documented in this encounter Results * (ABNORMAL) Lipid panel Expires 12 Months (04/22/2024 5:14 AM PST) Cholesterol, Total 209(H) 100 - 199 mg/dL [facility] 001 Triglycerides 171(H) 0 - 149 mg/dL [facility] 001 HDL Cholesterol 33(L) >39 mg/dL [facility] 001 VLDL Cholesterol 31 5 - 40 mg/dL [facility] 001 LDL Cholesterol 145(H) 0 - 99 mg/dL [facility] 001 Blood Venous blood / Unknown 04/22/2024 5:14 AM PST 04/21/2024 9:00 PM PST [facility]ative [facility] - 04/23/2024 3:07 AM PST Performed at: 01 - [place] [address], [place], [place] [id number] Weaving Teacher: Sukh Lainez MD, Phone: [phone] Specimen Comment: A courtesy copy of this report has been sent to [phone] us Olinda Driscoll MD LAB BLOOD ORDERABLES Final R esult [facility] [place] [address] [facility] [address] [place] [address], [facility] 001 * (ABNORMAL) Comprehensive Metabolic Panel (CMP) Expires 12 Months (04/22/2024 5:14 AM PST) Glucose 165(H) 70 - 99 mg/dL [facility] 001 BUN 27 8 - 27 mg/dL [facility] 001 Creatinine 1.33(H) 0.76 - 1.27 mg/dL [facility] 001 eGFR (CKD-EPI 2020) 52(L) >59 mL/min/1.7 3 [facility] 001 BUN/Creatinine Ratio 20 10 - 24 [facility] 001 Sodium 141 134 - 144 mmol/L [facility] 001 Potassium 4.6 3.5 - 5.2 mmol/L [facility] 001 Chloride 102 96 - 106 mmol/L [facility] 001 CO2 21 20 - 29 mmol/L [facility] 001 Calcium 10.1 8.6 - 10.2 mg/dL [facility] 001 Total Protein 6.3 6.0 - 8.5 g/dL [facility] 001 Albumin 4.0 3.7 - 4.7 g/dL [facility] 001 Globulin, Total 2.3 1.5 - 4.5 g/dL [facility] 001 Total Bilirubin 0.2 0.0 - 1.2 mg/dL [facility] 001 Alkaline Phosphatase 72 44 - 121 IU/L [facility] 001 AST 16 0 - 40 IU/L [facility] 001 ALT 13 0 - 44 IU/L [facility] 001 Blood Venous blood / Unknown 04/22/2024 5:14 AM PST 04/21/2024 9:00 PM PST [facility]ative [facility] - 04/23/2024 2:06 AM PST Performed at: 01 - [facility] [place] [address], [place] [id number] Weaving Teacher: Sukh Lainez MD, Phone: [phone] us Olinda Driscoll MD LAB BLOOD ORDERABLES Final R esult [facility] [address] [address], [facility] 001 documented in this encounter Visit Diagnoses Diagnosis Dyslipidemia Other and unspecified hyperlipidemia documented in this encounter Care Teams Grocery Stock Clerk Relationship Specialty Start Date End Date Shad Reardon [address] [place] [address] PCP - General Family Medicine 02/08/25 documented as of this encounter
--- OUTSIDE RECORDS SUMMARY | 2025-04-02 09:27 | EXTERNAL MEDICAL SUMMARY RPT | Encounter Summary ---
Author Organization [facility] Address [address] [place] [address] Care Team Providers Care Elephant Tamer Name Role Phone Shad Reardon Primary Care Provider [phone] Encounter Details Date Type Department Care Team (Late Contact Info) Description 08/31/2023 Orders Only [facility] Cardiology [address], [place] [address] Anselmo Antonio [address] [phone] Heart failure with mildly reduced ejection fraction (HFmrEF) ([facility]) Social History Tobacco Use Types Packs/Day Years [...] PST Office Visit [facility] Cardiology [address], [address] [phone] Vinay Abbasi [address] [phone] 07/21/2025 11:00 AM PDT Office Visit [facility] [place] [id number] [facility], [place] [address] Olinda Driscoll MD [address] [place] [address] documented as of this encounter Procedures Procedure Name Priority Date/Time Associated Diagnosis Comments BASIC METABOLIC PANEL Routine 08/28/2023 7:33 AM PDT Heart failure with mildly reduced ejection fraction (HFmrEF) ([facility]) documented in this encounter Results * (ABNORMAL) Basic Metabolic Panel Expires 12 Months (08/28/2023 7:33 AM PDT) Glucose 167(H) 70 - 99 mg/dL [facility] 001 BUN 28(H) 8 - 27 mg/dL [facility] 001 Creatinine 1.19 0.76 - 1.27 mg/dL [facility] 001 eGFR (CKD-EPI 2020) 60 >59 mL/min/1.7 3 [facility] 001 BUN/Creatinine Ratio 24 10 - 24 [facility] 001 Sodium 140 134 - 144 mmol/L [facility] 001 Potassium 4.7 3.5 - 5.2 mmol/L [facility] 001 Chloride 103 96 - 106 mmol/L [facility] 001 CO2 22 20 - 29 mmol/L [facility] 001 Calcium 9.5 8.6 - 10.2 mg/dL [facility] 001 Blood Venous blood / Unknown 08/28/2023 7:33 AM PDT 08/27/2023 9:00 PM PDT Narrative [facility] [place] - 08/31/2023 11:01 AM PDT Performed at: [address] [address], [place], [place] [id number] Angle Shear Operator: Sukh Lainez MD, Phone: [phone] Specimen Comment: A courtesy copy of this report has been sent to the patient, , Specimen Comment: [phone] Specimen Comment: A duplicate report has been generated due to demographic updates. Anselmo SOLOMON LAB BLOOD ORDERABLES Final Result [facility] [address] [address], [facility] 001 documented in this encounter Visit Diagnoses Diagnosis Heart failure with mildly reduced ejection fraction (HFmrEF) ([facility]/HCC) documented in this encounter Care Teams Elephant Tamer Relationship Specialty Start Date End Date Shad Reardon [address] [place] [address] PCP - General Family Medicine 02/08/25 documented as of this encounter
--- OUTSIDE RECORDS SUMMARY | 2025-04-02 09:27 | EXTERNAL MEDICAL SUMMARY RPT | Encounter Summary ---
Author Organization [facility] Address [address] [place] [address] Care Team Providers Care Auto Parts Manager Name Role Phone Shad Reardon Primary Care Provider [phone] Encounter Details Date Type Department Care Team (Late Contact Info) Description 10/26/2023 Abstract [facility]iology [address], [facility] [place] [address] Anselmo Antonio [address] [phone] Social History Tobacco Use Types Packs/Day Years Used Date Smoking Tobacco: Former Cigarettes 0.3 7 1 957 - 1309 Passive Smoke Exposure: Never Smokeless Tobacco: Never [...] Description 04/10/2025 11:00 AM PST Office Visit [facility] [address] [phone] Vinay Abbasi [address] [phone] 07/21/2025 11:00 AM PDT Office Visit [facility] Cardiology [address], [place] [phone] Olinda Driscoll MD [address] [place] [address] [address] [place] [address] documented as of this encounter Visit Diagnoses Not on filedocumented in this encounter Care Teams Auto Parts Manager Relationship Specialty Start Date End Date Shad Reardon [address] [place] [address] PCP - General Family Medicine 02/08/25 documented as of this encounter
--- OUTSIDE RECORDS SUMMARY | 2025-04-02 09:27 | EXTERNAL MEDICAL SUMMARY RPT | Encounter Summary ---
Author Organization [facility] Address [address] [place] [address] Care Team Providers Care Manpower Development Manager Name Role Phone Shad Reardon Primary Care Provider [phone] Encounter Details Date Type Department Care Team (Late st Contact Info) Description 05/13/2023 Orders Only [facility] Cardiology [address], [place] [address] Anselmo Antonio [address] [phone] Coronary artery disease involving [place] coronary artery of [place] heart without angina pectoris Social History Tobacco Use Types Packs/Day Years [...] Description 04/10/2025 11:00 AM PST Office Visit [facility] Cardiology [address] [phone] Vinay Abbasi [address] [phone] 07/21/2025 11:00 AM PDT Office Visit [facility]iology [address], [place] [phone] Olinda Driscoll MD [address] [place] [address] [address] [place] [address] documented as of this encounter Procedures Procedure Name Priority Date/Time Associated Diagnosis Comments LIPID PANEL Routine 05/12/2023 5:19 AM PST Coronary artery disease involving [place] coronary artery of [place] heart without angina pectoris documented in this encounter Results * (ABNORMAL) Lipid panel (Fasting) (05/12/2023 5:19 AM PST) Pathologist [facility] Cholesterol, Total 108 100 - 199 mg/dL [facility] 001 Triglycerides 115 0 - 149 mg/dL [facility] 001 HDL Cholesterol 33(L) >39 mg/dL [facility] 001 VLDL Cholesterol 21 5 - 40 mg/dL [facility] 001 LDL Cholesterol 54 0 - 99 mg/dL [facility] 001 Blood Venous blood / Unknown 05/12/2023 5:19 AM PST 05/11/2023 9:00 PM PST Narrative [facility] [place] - 05/13/2023 8:09 AM PST Performed at: 01 - [facility] [address] [place] [address], [place], [place] [id number] Pulverizer Mill Operator: Sukh Lainez MD, Phone: [phone] Specimen Comment: A courtesy copy of this report has been sent to the patient, , Specimen Comment: [phone] Specimen Comment: A duplicate report has been generated due to demographic updates. Anselmo SOLOMON LAB BLOOD ORDERABLES Final Result [facility] [place] [address] [facility] [address] [place] [address], [place] [phone] [facility] 001 documented in this encounter Visit Diagnoses Diagnosis Coronary artery disease involving [place] coronary artery of [place] heart without angina pectoris documented in this encounter Care Teams Manpower Development Manager Relationship Specialty Start Date End Date Shad Reardon [address] [place] [address] PCP - General Family Medicine 02/08/25 documented as of this encounter
--- OUTSIDE RECORDS SUMMARY | 2025-04-02 09:27 | EXTERNAL MEDICAL SUMMARY RPT | Encounter Summary ---
Author Organization [facility] Address [address] [place] [address] Care Team Providers Care Barber Name Role Phone Shad Reardon Primary Care Provider [phone] Encounter Details Date Type Department Care Team (Late Contact Info) Description 07/24/2024 Abstract [facility] Cardiology [address], [place] [address] Olinda Driscoll MD [address] [place] [phone] Social History Tobacco Use Types Packs/Day Years Used Date Smoking Tobacco: Former Cigarettes 0.3 7 1 957 - 5240 Passive Smoke Exposure: Never Smokeless Tobacco: Never [...] Description 04/10/2025 11:00 AM PST Office Visit [facility] Cardiology [address] [phone] Vinay Abbasi ARNP [address] [place] [phone] 07/21/2025 11:00 AM PDT Office Visit [facility] Cardiology [address], [place] [phone] Olinda Driscoll MD [address] [place] [address] [address] [place] [address] documented as of this encounter Visit Diagnoses Not on filedocumented in this encounter Care Teams Barber Relationship Specialty Start Date End Date Shad Reardon [address] [place] [address] PCP - General Family Medicine 02/08/25 documented as of this encounter
--- OUTSIDE RECORDS SUMMARY | 2025-04-02 09:27 | EXTERNAL MEDICAL SUMMARY RPT | Encounter Summary ---
Author Organization [facility] Address [address] [place] [address] Care Team Providers Care Public Health Doctor Name Role Phone Shad Reardon Primary Care Provider [phone] Encounter Details Date Type Department Care Team (Late st Contact Info) Description 04/22/2024 Abstract [facility] Cardiology [address] [address] Olinda Driscoll MD [address] [place] [phone] Social History Tobacco Use Types Packs/Day Years Used Date Smoking Tobacco: Former Cigarettes 0.3 7 1 957 - 2691 Passive Smoke Exposure: Never Smokeless Tobacco: Never [...] Description 04/10/2025 11:00 AM PST Office Visit [facility] Cardiology [address] [phone] Vinay Abbasi ARNP [address] [place] [phone] 07/21/2025 11:00 AM PDT Office Visit [facility] Cardiology [address] [place] [phone] Olinda Driscoll MD [address] [place] [address] [address] [place] [address] documented as of this encounter Visit Diagnoses Not on filedocumented in this encounter Care Teams Public Health Doctor Relationship Specialty Start Date End Date Shad Reardon [address] [place] [address] PCP - General Family Medicine 02/08/25 documented as of this encounter
--- OUTSIDE RECORDS SUMMARY | 2025-04-02 09:27 | EXTERNAL MEDICAL SUMMARY RPT | Encounter Summary ---
Author Organization [facility] Address [address] [place] [address] Care Team Providers Care Molding Utility Worker Name Role Phone Shad Reardon Primary Care Provider [phone] Encounter Details Date Type Department Care Team ([facility] Contact Info) Description 08/10/2024 Abstract [facility] Health Information Management [facility] [place] [address] [facility] Activities Specialist, Provider, Social History Tobacco Use Types Packs/Day Years Used Date Smoking Tobacco: Former Cigarettes 0.3 7 1 957 - 7751 Passive Smoke Exposure: Never Smokeless Tobacco: Never [...] Upcoming Encounters Date Type Department Care Team ([facility] Contact Info) Description 04/10/2025 11:00 AM PST Office Visit [facility] Cardiology [address], [address] [place] [phone] Vinay Abbasi ARNP [address] [place] [address] 07/21/2025 11:00 AM PDT Office Visit [facility] Cardiology [address], [place] [phone] Olinda Driscoll MD [address] [place] [address] [place] [address] documented as of this encounter Procedures Procedure Name Priority Date/Time Associated Diagnosis Comments HEMOGLOBIN A1C Routine 07/25/2024 LIPID PANEL Routine 07/25/2024 documented in this encounter Results * Hemoglobin A1c (07/25/2024) External Hemoglobin A1c 6.7 % Blood Venous blood / Unknown us Ordering Provider LAB BLOOD ORDERABLES Final Res ult * Lipid panel (07/25/2024) External LDL Cholesterol 40 mg/dL Blood Venous blood / Unknown us Ordering Provider LAB BLOOD ORDERABLES Final Res ult documented in this encounter Visit Diagnoses Not on filedocumented in this encounter Care Teams Molding Utility Worker Relationship Specialty Start Date End Date Shad Reardon [address] [place] [address] PCP - General Family Medicine 02/08/25 documented as of this encounter
--- OUTSIDE RECORDS SUMMARY | 2025-04-02 09:27 | EXTERNAL MEDICAL SUMMARY RPT | Encounter Summary ---
Author Organization [facility] Address [address] [place] [address] Care Team Providers Care Credit Cashier Name Role Phone Shad Reardon Primary Care Provider Encounter Details Date Type Department Care Team (Late Contact Info) Description 11/20/2022 Orders Only [facility] Cardiology [address] [phone] Olinda Driscoll MD [address] [place] [address] Shortness of breath; Dyslipidemia; Essential hypertension Social History Tobacco Use Types Packs/Day Years Used Date Smoking Tobacco: Former Cigarettes 0.3 7 1 957 - 1574 Passive Smoke Exposure: Never Smokeless Tobacco: Never [...] Description 04/10/2025 11:00 AM PST Office Visit [facility] Cardiology [address] [phone] Vinay Abbasi ARNP [address] [place] [phone] 07/21/2025 11:00 AM PDT Office Visit [facility] Cardiology [address], [place] [phone] Olinda Driscoll MD [address] [place] [address] [address] [place] [address] documented as of this encounter Procedures Procedure Name Priority Date/Time Associated Diagnosis Comments COMPLETE BLOOD COUNT WITH DIFF RESULT Routine 11/19/2022 5:22 AM PDT Shortness of breath COMPLETE BLOOD COUNT WITH DIFF Routine 11/19/2022 5:22 AM PDT Shortness of breath THYROID STIMULATING HORMONE Routine 11/19/2022 5:22 AM PDT Shortness of breath Essential hypertension B-TYPE NATRIURETIC PEPTIDE Routine 11/19/2022 5:22 AM PDT Shortness of breath MAGNESIUM Routine 11/19/2022 5:22 AM PDT Essential hypertension LIPID PANEL Routine 11/19/2022 5:22 AM PDT Dyslipidemia COMPREHENSIVE METABOLIC PANEL Routine 11/19/2022 5:22 AM PDT Shortness of breath documented in this encounter Results * TSH (11/19/2022 5:22 AM PDT) TSH 2.690 0.450 - 4.500 uIU/mL [facility] 001 Blood Venous blood / Unknown 11/19/2022 5:22 AM PDT 11/18/2022 9:00 PM PDT Narrative [facility] [place] - 11/20/2022 7:09 AM PDT Performed at: 01 - [facility] [address] [place] [address], [place], [place] [id number] Thermodynamic Physicist: Sukh Lainez MD, Phone: [phone] us Olinda Driscoll MD LAB BLOOD ORDERABLES Final R esult [facility] [address] [address], [facility] 001 * Magnesium Expires 12 Months (11/19/2022 5:22 AM PDT) [facility] Magnesium 1.9 1.6 - 2.3 mg/dL [facility] 001 Blood Venous blood / Unknown 11/19/2022 5:22 AM PDT 11/18/2022 9:00 PM PDT [facility] 11/20/2022 7:09 AM PDT Performed at: [address], [place] [id number] Thermodynamic Physicist: Sukh Lainez MD, Phone: [phone] us Olinda Driscoll MD LAB BLOOD ORDERABLES Final R esult Performing Organization Address [facility] Co de Phone Number [address] [address], REFERENCE [facility] 001 * (ABNORMAL) B-type natriuretic peptide (BNP) (11/19/2022 5:22 AM PDT) [facility] B-Type Natriuretic Peptide 164.8(H) 0.0 - 100.0 pg/mL [facility] 001 Comment:[employer] XP methodology Blood Venous blood / Unknown 11/19/2022 5:22 AM PDT 11/18/2022 9:00 PM PDT [facility]ative [facility] - 11/20/2022 7:09 AM PDT Performed at: [address], [place] [id number] Thermodynamic Physicist: Sukh Lainez MD, Phone: [phone] us Olinda Driscoll MD LAB BLOOD ORDERABLES Final R esult Performing Organization Address City/[facility]/ZIP Co de Phone Number [address] [place] [address], REFERENCE [facility] 001 * (ABNORMAL) Lipid panel Expires 12 Months (11/19/2022 5:22 AM PDT) Pathologist [facility] Cholesterol, Total 182 100 - 199 mg/dL [facility] 001 Triglycerides 123 0 - 149 mg/dL [facility] 001 HDL Cholesterol 33(L) >39 mg/dL REFE R[facility] 001 VLDL Cholesterol 22 5 - 40 mg/dL [facility] 001 LDL Cholesterol 127(H) 0 - 99 mg/dL [facility] 001 Blood Venous blood / Unknown 11/19/2022 5:22 AM PDT 11/18/2022 9:00 PM PDT Narrative [facility] [place] - 11/20/2022 7:09 AM PDT Performed at: 01 - [address] [place] [address], [place], [place] [id number] Thermodynamic Physicist: Sukh Lainez MD, Phone: [phone] Olinda Driscoll MD LAB BLOOD ORDERABLES Final R esult [facility] [address], [facility]FER[facility] 001 * (ABNORMAL) Comprehensive Metabolic Panel (CMP) Expires 12 Months (11/19/2022 5:22 AM PDT) Pathologist [facility] Glucose 129(H) 70 - 99 mg/dL [facility] 001 BUN 27 8 - 27 mg/dL [facility] 001 Creatinine 1.03 0.76 - 1.27 mg/dL [facility] 001 eGFR (CKD-EPI 2020) 72 >59 mL/min/1.7 3 [facility] 001 BUN/Creatinine Ratio 26(H) 10 - 24 [facility] 001 Sodium 140 134 - 144 mmol/L [facility] 001 Potassium 4.6 3.5 - 5.2 mmol/L [facility] 001 Chloride 101 96 - 106 mmol/L [facility] 001 CO2 23 20 - 29 mmol/L [facility] 001 Calcium 9.9 8.6 - 10.2 mg/dL [facility] 001 Total Protein 6.0 6.0 - 8.5 g/dL [facility] 001 Albumin 3.8 3.7 - 4.7 g/dL [facility] 001 Globulin, Total 2.2 1.5 - 4.5 g/dL [facility] 001 A/G Ratio 1.7 1.2 - 2.2 [facility] 001 Total Bilirubin 0.5 0.0 - 1.2 mg/dL [facility] 001 Alkaline Phosphatase 59 44 - 121 IU/L [facility] 001 AST 16 0 - 40 IU/L [facility] 001 ALT 16 0 - 44 IU/L [facility] 001 Blood Venous blood / Unknown 11/19/2022 5:22 AM PDT 11/18/2022 9:00 PM PDT Narrative [facility] 11/20/2022 7:09 AM PDT Performed at: 01 - [address] [id number] Thermodynamic Physicist: Sukh Lainez MD, Phone: [phone] Olinda Driscoll MD LAB BLOOD ORDERABLES Final R esult [facility] [address], [facility] 001 * Complete blood count with diff (11/19/2022 5:22 AM PDT) WBC 7.2 3.4 - 10.8 x10E3/uL [facility] 001 RBC 4.64 4.14 - 5.80 x10E6/uL [facility] 001 Hemoglobin 14.5 13.0 - 17.7 g/dL [facility] 001 Hematocrit 43.6 37.5 - 51.0 % [facility] 001 MCV 94 79 - 97 fL [facility] 001 MCH 31.3 26.6 - 33.0 pg [facility] 001 MCHC 33.3 31.5 - 35.7 g/dL [facility] 001 RDW 13.4 11.6 - 15.4 % [facility] 001 Platelet Count 172 150 - 450 x10E3/uL [facility] 001 % Neutrophils 47 Not Estab. % [facility] 001 % Lymphocytes 37 Not Estab. % [facility] 001 % Monocytes 9 Not Estab. % [facility] 001 % Eosinophils 6 Not Estab. % [facility] 001 % Basophils 1 Not Estab. % [facility] 001 Absolute Neutrophils 3.4 1.4 - 7.0 x10E3/uL [facility] 001 Absolute Lymphocytes 2.7 0.7 - 3.1 x10E3/uL [facility] 001 Absolute Monocytes 0.7 0.1 - 0.9 x10E3/uL [facility] 001 Absolute Eosinophils 0.4 0.0 - 0.4 x10E3/uL [facility] 001 Absolute Basophils 0.1 0.0 - 0.2 x10E3/uL [facility] 001 % Immature Granulocytes 0 Not Estab. % [facility] 001 Abs. Immature Granulocytes 0.0 0.0 - 0.1 x10E3/uL [facility] 001 Comment: A hand-written panel/profile was received from your office. In accordance with the [facility] Ambiguous Test Code Policy dated October 2002, we have assigned CBC with Differential/Platelet, Test Code #912143 to this request. If this is not the testing you wished to receive on this specimen, please contact the [facility] Client Inquiry/ Technical Services Department to clarify the test order. We appreciate your business. Blood Venous blood / Unknown 11/19/2022 5:22 AM PDT 11/18/2022 9:00 PM PDT Narrative [facility] - 11/20/2022 7:09 AM PDT Performed at: - [address], [place], [place] [id number] Thermodynamic Physicist: Sukh Lainez MD, Phone: [phone] Specimen Comment: A courtesy copy of this report has been sent to the patient, , Specimen Comment: [phone] Specimen Comment: A duplicate report has been generated due to demographic updates. us Olinda Drisclol MD LAB BLOOD ORDERABLES Final R esult [address] [place] [address], [place] [phone] [facility] 001 documented in this encounter Visit Diagnoses Diagnosis Shortness of breath Dyslipidemia Other and unspecified hyperlipidemia Essential hypertension Unspecified essential hypertension documented in this encounter Care Teams Credit Cashier Relationship Specialty Start Date End Date Shad Reardon [address] [place] [address] PCP - General Family Medicine 02/08/25 documented as of this encounter
--- OUTSIDE RECORDS SUMMARY | 2025-04-02 09:27 | EXTERNAL MEDICAL SUMMARY RPT | Clinical Summary ---
Author Organization [facility] Address [address] [place] [address] Care Team Providers Care Grinder Set Up Operator Centerless Name Role Phone Shad Reardon Primary Care Provider [phone] Allergies Active Allergy Reactions Criticality Noted Date Comments Atenolol Other (see comments) Tamsulosin 09/16/2022 Hydrocodone 09/16/2022 Linagliptin-Metformin 09/16/2022 Levofloxacin 09/16/2022 Penicillins 09/16/2022 Medications metFORMIN (GLUCOPHAGE) 500 mg tablet 1 tablet (500 mg total) 3 (three) times a day 3 Active leflunomide (ARAVA) 20 mg tablet Take 1 tablet (20 mg total) by mouth daily Active silodosin 8 mg capsule Take 8 mg by mouth daily Active cholecalciferol (VITAMIN D3) 125 mcg (5,000 unit) tablet oral tablet Take 1,000 Units by mouth every other day Active cyanocobalamin 2,500 mcg tablet Take by mouth daily Active Contour Next Test Strips strip 3 Active sacubitriL-valsa rtan (Entresto) 24-26 mg tablet tablet Take 1 tablet by mouth 2 (two) times a day 180 tablet 3 4 04/25/20 25 Active spironolactone (ALDACTONE) 25 mg tablet TAKE ONE-HALF TABLET BY MOUTH DAILY 45 tablet 3 5 Active isosorbide mononitrate (IMDUR) 30 mg 24 hr tablet TAKE 1 TABLET BY MOUTH DAILY 90 tablet 3 5 Active apixaban (Eliquis) 5 mg tablet Take 1 tablet (5 mg total) by mouth 2 (two) times a day 180 tablet 3 5 09/29/19 26 Active nitroglycerin (NITRO-BID) 2.5 mg CR capsule 1 cap(s) orally 1 time a day Active gabapentin (NEURONTIN) 100 mg capsule 5 Active albuterol HFA (ProAir/Ventolin /Proventil) 90 mcg/actuation inhaler INHALE TWO PUFFS BY MOUTH EVERY FOUR TO SIX HOURS NEEDED FOR WHEEZING Active acetaminophen-co deine (TYLENOL #3) 300-30 mg take one tablet by mouth every four to six hours as needed for pain 5 Active empagliflozin (JARDIANCE) 10 mg tablet tabletIndication s:chronic heart failure Take 1 tablet (10 mg total) by mouth daily Indications: chronic heart failure 30 tablet 3 5 Active furosemide (LASIX) 20 mg tablet Take 1 tablet (20 mg total) by mouth daily 90 tablet 3 5 02/17/20 26 Active metoprolol succinate XL (TOPROL-XL) 25 mg 24 hr tablet TAKE 1 TABLET BY MOUTH DAILY 90 tablet 3 5 Active Active Problems Problem Noted Date Diagnosed Date 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 angina pectoris 11/11/2022 Paroxysmal atrial fibrillation 11/11/2022 Essential hypertension 11/11/2022 Dyslipidemia 11/11/2022 S/P ablation of atrial fibrillation 11/11/2022 BHUPENDRA on CPAP 11/11/2022 Palpitations 11/11/2022 PAD (peripheral artery disease) 11/11/2022 Murmur, heart 11/11/2022 Hyperlipidemia due to type 2 diabetes mellitus 0 08/24/2018 Arthritis 07/12/2018 Chronic obstructive pulmonary disease 07/12/2018 Congestive heart failure 08/04/2017 Type 2 diabetes mellitus wit h stage 3 chronic kidney disease, without long-term current use of insulin 07/22/2016 Hypertrophy of prostate with urinary obstruction 07/22/2016 Overview (02/09/2025): UROLOGY veneciabyani now Rheumatoid arthritis of both ankles 07/22/2016 Overview (02/09/2025): TOD on arava O1syebpz Problem List Com Writer Utility Type 2 diabetes, controlled, with peripheral jacob ropathy 04/14/2016 Overview (02/09/2025): POD-deni 08/11 mild neuropathy OPTHO-garcia nov appt 2015 last FU in feb Encounters Date Type Department Care Team Description 02/17/[address], [place] [address] Anselmo Antonio ARNP 02/16/2025 2:30 PM PDT Office Visit [address], [place] [address] Olinda Driscoll MD Chronic systolic heart failure (CMS/HCC) (Primary Dx); Cardiomyopathy, ischemic; Coronary artery disease involving ely shoshone coronary artery of ely shoshone heart without angina pectoris; Paroxysmal atrial fibrillation (CMS/HCC); Essential hypertension; Dyslipidemia 02/10/2025 Telephone [facility] Cardiology [address], [address] [place] [address] Vinay Abbasi ARNP 02/09/2025 11:20 AM PDT Office Visit [facility] Cardiology [address], [address] [place] [phone] Vinay Abbasi ARNP Chronic systolic heart failure (CMS/HCC) (Primary Dx); Coronary artery disease involving ely shoshone coronary artery of ely shoshone heart without angina pectoris; Paroxysmal atrial fibrillation (CMS/HCC); Essential hypertension; Cardiomyopathy, ischemic 02/07/2025 Abstract [facility] Cardiology [address], [address] [place] [address] Vinay Abbasi ARNP 01/31/2025 Telephone [facility] Cardiology [address], [place] [address] Olinda Driscoll MD 01/05/2025 Telephone [facility] Cardiology [address], [facility] [place] [address] Olinda Driscoll MD from Last 3 Months Family History Medical History Relation Comments Cancer Brother Diabetes Brother Diabetes Mother Heart disease Mother Heart failure Mother Cancer Sister 1 Diabetes Sister 1 Heart disease Sister 1 Cancer Sister 2 Diabetes Sister 3 Cancer Sister 4 Diabetes Sister 5 Relation Status Comments Brother Mother Sister 1 Sister 2 Alive Sister 3 Alive Sister 4 Alive Sister 5 Alive Social History Tobacco Use Types Packs/Day Years Used Date Smoking Tobacco: Former Cigarettes 0.3 7 1 957 - 3881 Passive Smoke Exposure: Never Smokeless Tobacco: Never Tobacco Cessation:Counseling Given: Not Answered Alcohol Use Standard Drinks/Week Comments Never 0 (1 standard drink = 0.6 oz pur e alcohol) Sex and Gender Information Value Date Recorded Sex Assigned at Not on file Legal Sex Male 10:33 AM PDT Gender Identity Not on file Sexual Orientation Not on file Last Filed Vital Signs Vital Sign Reading Time Taken Comments Blood Pressure 110/68 02/16/2025 1:47 PM PDT Pulse 77 02/16/2025 1:47 PM PDT Temperature - - Respiratory Rate - - Oxygen Saturation 91% 11/02/2023 1:27 PM PDT Inhaled Oxygen Concentration - - Weight 87.5 kg (193 lb) 02/16/2025 1:47 PM PDT Height 185.4 cm (6' 1") 02/16/2025 1:47 PM PDT Body Mass Index 25.46 02/16/2025 1:47 PM PDT Plan of Treatment Upcoming Encounters Date Type Department Care Team (Late st Contact Info) Description 04/10/2025 11:00 AM PST Office Visit [facility] Cardiology [address] [phone] Vinay Abbasi ARNP [address] [place] [address] 07/21/2025 11:00 AM PDT Office Visit [facility] Cardiology [place] [address] [place] [address], [place] [address] Olinda Driscoll MD [address] [place] [address] [address] [place] [address] Health Maintenance Due Date Last Done Comments Diabetic Eye Exam 1940 Medicare Annual Wellness (AWV) 1940 COVID-19 Vaccine (#1) 07/18/1943 Diabetes Urine Protein Screening 1948 Diabetic Foot Exam 1948 Depression Screening (PHQ-2) 1950 HM Pneumococcal Adult 50+ (1 of 2 - PCV) 1957 08/01/2014 Zoster Vaccines (1 of 2) 1957 Fall Risk Screening 07/18/2003 DTaP,Tdap,and Td Vaccines (1 - Tdap) 07/24/2011 07/23/2011 RSV Patients Over 60 years O R qualifying ( Patients) (1 - 1-dose 75+ series) 2013 Hemoglobin A1C 01/24/2025 07/25/2024, 08/20/2023 Influenza Vaccine (#1) 2025 03/29/2019 HPV Vaccines Aged Out No longer eligi ble based on patient's age to complete this topic Hepatitis A Vaccines Aged Out No long er eligible based on patient's age to complete this topic Hepatitis B Vaccines Aged Out No long er eligible based on patient's age to complete this topic IPV Vaccines Aged Out No longer eligi ble based on patient's age to complete this topic MMR Vaccines Aged Out No longer eligi ble based on patient's age to complete this topic Goals Goal Patient Goal Type Associated Problems Recent Progress Patient-Stated? Author Patient will track health remotely Care Plan MYC3 RPM CONGESTIVE HEART FAILURE PROBLEM No Vinay Abbasi ARNP Procedures Procedure Name Priority Date/Time Associated Diagnosis Comments ECG 12-LEAD Routine 02/16/2025 1:50 PM PDT Chronic systolic heart failure (CMS/HCC) Coronary artery disease involving ely shoshone coronary artery of ely shoshone heart without angina pectoris ECG EXTERNAL RESULTS 01/31/2025 HEMOGLOBIN A1C Routine 07/25/2024 from Last 3 Months or Most Recently Relevant to Health Maintenance Results * ECG 12 lead (02/16/2025 1:50 PM PDT) HR 77 bpm [facility] RR 779 ms [facility] MT 164 ms [facility] QRSD 120 ms [facility] QT 386 ms [facility] QTc 437 ms [facility] QRS -80 deg [facility] T 71 deg [facility] Impression - ABNORMAL ECG - [facility] I[facility]G Impression Sinus rhythm [facility] Impression Left anterior fascicular block [facility] Impression Right bundle branch block [facility] Impression Nonspecific ST-T changes [facility] Impression When compared with ECG of 29-Jul-2024 13:05:40, [facility] IECG Impression No significant change [facility] I[facility]G 02/16/2025 1:50 PM PDT Olinda Driscoll MD ECG ORDERABLES Final Result [facility] IECG * ECG EXTERNAL RESULTS (01/31/2025) Narrative 01/31/2025 Ordered by an unspecified provider. Provider External ECG ORDERABLES Final Resul t * Hemoglobin A1c (07/25/2024) External Hemoglobin A1c 6.7 % Blood Venous blood / Unknown Ordering Provider LAB BLOOD ORDERABLES Final Res ult from Last 3 Months or Most Recently Relevant to Health Maintenance Additional Health Concerns Active Problems Noted Date Diagnosed Date MYC3 RPM CONGESTIVE HEART FAILURE PROBLEM 2024 Insurance MEDICARE PART A AND B [facility] SUPP Member Subscriber Plan / Payer (Ef fective for All Dates) Name:Donaldo Webb Relation to Subscriber:Self Name:Donaldo Webb Payer ID:Not on file Group ID:[id number] Type:Not on file Address: [address] [place] [id number] Care Teams Grinder Set Up Operator Centerless Relationship Specialty Start Date End Date Shad Reardon [address] [place] [address] PCP - General Family Medicine 02/08/25
--- OUTSIDE RECORDS SUMMARY | 2025-04-02 09:27 | EXTERNAL MEDICAL SUMMARY RPT | Encounter Summary ---
Author Organization [facility] Address [address] [place] [address] Care Team Providers Care Risk Prevention Engineer Name Role Phone Shad Reardon Primary Care Provider [phone] Encounter Details Date Type Department Care Team (Late Contact Info) Description 07/26/2024 Orders Only [facility] [address] [address] Olinda Driscoll MD [address] [place] [phone] Chronic systolic heart failure (CMS/HCC); Dyslipidemia Social History Tobacco Use Types Packs/Day [...] Description 04/10/2025 11:00 AM PST Office Visit [facility] [address] [address] Vinay Abbasi ARNP [address] [place] [phone] 07/21/2025 11:00 AM PDT Office Visit [facility] [address] [place] [facility], [place] [phone] Olinda Driscoll MD [address] [place] [address] [address] [place] [address] documented as of this encounter Procedures Procedure Name Priority Date/Time Associated Diagnosis Comments LIPID PANEL Routine 07/25/2024 10:25 AM PDT Dyslipidemia THYROID STIMULATING HORMONE Routine 07/25/2024 10:25 AM PDT Chronic systolic heart failure (CMS/HCC) MAGNESIUM Routine 07/25/2024 10:25 AM PDT Chronic systolic heart failure (CMS/HCC) BASIC METABOLIC PANEL Routine 07/25/2024 Chronic systolic heart failure (CMS/HCC) documented in this encounter Results * Lipid panel Expires 12 Months (07/25/2024 10:25 AM PDT) Blood Venous blood / Unknown Olinda Driscoll MD LAB BLOOD ORDERABLES Final R esult Performing Organization Address [facility] Co de Phone Number [facility] [address] [address], [place] [phone] * TSH (07/25/2024 10:25 AM PDT) Blood Venous blood / Unknown Olinda Driscoll MD LAB BLOOD ORDERABLES Final R esult [facility] [place] [address] [address], [place] [phone] * Magnesium Expires 12 Months (07/25/2024 10:25 AM PDT) Blood Venous blood / Unknown us Olinda Driscoll MD LAB BLOOD ORDERABLES Final R esult [facility] [address] [place] [address], * Basic Metabolic Panel Expires 12 Months (07/25/2024) Blood Venous blood / Unknown Olinda Driscoll MD LAB BLOOD ORDERABLES Final R esult [facility] [address] [address], documented in this encounter Visit Diagnoses Diagnosis Chronic systolic heart failure (CMS/[facility]) Chronic systolic heart failure Dyslipidemia Other and unspecified hyperlipidemia documented in this encounter Care Teams Risk Prevention Engineer Relationship Specialty Start Date End Date Shad Reardon [address] [place] [address] PCP - General Family Medicine 02/08/25 documented as of this encounter
--- OUTSIDE RECORDS SUMMARY | 2025-04-02 09:27 | EXTERNAL MEDICAL SUMMARY RPT | Encounter Summary ---
Author Organization [facility] Address [address] [place] [address] Care Team Providers Care Magnetic Prospecting Supervisor Name Role Phone Shad Reardon Primary Care Provider [phone] Encounter Details Date Type Department Care Team ([facility] Contact Info) Description 08/31/2023 Abstract [facility] Health Information Management [facility] [place] [address] [facility] Self Pay Representative, Provider, Social History Tobacco Use Types Packs/Day Years Used Date Smoking Tobacco: Former Cigarettes 0.3 7 1 957 - 9832 Passive Smoke Exposure: Never Smokeless Tobacco: Never [...] Upcoming Encounters Date Type Department Care Team ([facility] Contact Info) Description 04/10/2025 11:00 AM PST Office Visit [facility] Cardiology [address], [address] [place] [phone] Vinay Abbasi ARNP [address] [place] [address] 07/21/2025 11:00 AM PDT Office Visit [facility] Cardiology [address], [place] [phone] Olinda Driscoll MD [address] [place] [address] [place] [address] documented as of this encounter Procedures Procedure Name Priority Date/Time Associated Diagnosis Comments HEMOGLOBIN A1C Routine 08/20/2023 LIPID PANEL Routine 08/20/2023 documented in this encounter Results * Hemoglobin A1c (08/20/2023) External Hemoglobin A1c 6.6 % Blood Venous blood / Unknown us Ordering Provider LAB BLOOD ORDERABLES Final Res ult * Lipid panel (08/20/2023) External LDL Cholesterol 64 mg/dL Blood Venous blood / Unknown us Ordering Provider LAB BLOOD ORDERABLES Final Res ult documented in this encounter Visit Diagnoses Not on filedocumented in this encounter Care Teams Magnetic Prospecting Supervisor Relationship Specialty Start Date End Date KrishShad [address] [place] [address] PCP - General Family Medicine 02/08/25 documented as of this encounter
--- OUTSIDE RECORDS SUMMARY | 2025-04-02 09:27 | EXTERNAL MEDICAL SUMMARY RPT | Encounter Summary ---
Author Organization [facility] Address [address] [place] [address] Care Team Providers Care Professional Builder Name Role Phone Shad Reardon Primary Care Provider [phone] Encounter Details Date Type Department Care Team (Late Contact Info) Description 08/12/2023 Abstract [facility] Cardiology [address], [facility] [place] [address] Anselmo Antonio [address] [phone] Social History Tobacco Use Types Packs/Day Years Used Date Smoking Tobacco: Former Cigarettes 0.3 7 1 957 - 7842 Passive Smoke Exposure: Never Smokeless Tobacco: Never [...] 04/10/2025 11:00 AM PST Office Visit [facility] Cardiology [address] [phone] Vinay Abbasi [address] [phone] 07/21/2025 11:00 AM PDT Office Visit [facility] Cardiology [address], [place] [phone] Olinda Driscoll MD [address] [place] [address] [address] [place] [address] documented as of this encounter Visit Diagnoses Not on filedocumented in this encounter Care Teams Professional Builder Relationship Specialty Start Date End Date Shad Reardon [address] [place] [phone] PCP - General Family Medicine 02/08/25 documented as of this encounter
--- OUTSIDE RECORDS SUMMARY | 2025-04-02 09:27 | EXTERNAL MEDICAL SUMMARY RPT | Encounter Summary ---
Author Organization [facility] Address [address] [place] [address] Care Team Providers Care Facility Security Officer Name Role Phone Shad Reardon Primary Care Provider [phone] Encounter Details Date Type Department Care Team (Late Contact Info) Description 06/03/2023 Orders Only [facility] Cardiology [address], [place] [address] Olinda rDiscoll MD [address] [place] [address] [phone] Chronic systolic heart failure ([facility]-HCC) Social History Tobacco Use Types Packs/Day Years Used Date Smoking Tobacco: Former Cigarettes 0.3 7 1 957 - 3135 Passive Smoke Exposure: Never Smokeless Tobacco: Never [...] Description 04/10/2025 11:00 AM PST Office Visit [facility] Cardiology [address], [address] [phone] Vinay Abbasi ARNP [address] [place] [address] [phone] 07/21/2025 11:00 AM PDT Office Visit [facility] Cardiology [address], [place] [address] Olinda Driscoll MD [address] [place] [address] [address] [place] [address] documented as of this encounter Procedures Procedure Name Priority Date/Time Associated Diagnosis Comments COMPREHENSIVE METABOLIC PANEL Routine 06/02/2023 7:20 AM PST Chronic systolic heart failure (CMS-HCC) documented in this encounter Results * (ABNORMAL) Comprehensive Metabolic Panel (CMP) Expires 12 Months (06/02/2023 7:20 AM PST) Glucose 141(H) 70 - 99 mg/dL [facility] 001 BUN 32(H) 8 - 27 mg/dL [facility] 001 Creatinine 1.07 0.76 - 1.27 mg/dL [facility] 001 eGFR (CKD-EPI 2020) 68 >59 mL/min/1.7 3 [facility] 001 BUN/Creatinine Ratio 30(H) 10 - 24 [facility] 001 Sodium 141 134 - 144 mmol/L [facility] 001 Potassium 4.6 3.5 - 5.2 mmol/L [facility] 001 Chloride 104 96 - 106 mmol/L [facility] 001 CO2 23 20 - 29 mmol/L [facility] 001 Calcium 10.0 8.6 - 10.2 mg/dL [facility] 001 Total Protein 6.2 6.0 - 8.5 g/dL [facility] 001 Albumin 3.8 3.7 - 4.7 g/dL [facility] 001 Globulin, Total 2.4 1.5 - 4.5 g/dL [facility] 001 A/G Ratio 1.6 1.2 - 2.2 [facility] 001 Total Bilirubin 0.3 0.0 - 1.2 mg/dL [facility] 001 Alkaline Phosphatase 72 44 - 121 IU/L [facility] 001 AST 20 0 - 40 IU/L [facility] 001 ALT 19 0 - 44 IU/L [facility] 001 Blood Venous blood / Unknown 06/02/2023 7:20 AM PST 06/01/2023 9:00 PM PST Narrative [facility] [place] - 06/03/2023 5:13 AM PST Performed at: 01 - [facility] [place] [address] [facility] [address], [place], [place] [id number] Industrial Millwright: Sukh Lainez MD, Phone: [phone] Specimen Comment: A courtesy copy of this report has been sent to the patient, , Specimen Comment: [phone] us Olinda Driscoll MD LAB BLOOD ORDERABLES Final R esult [facility] [address] [phone], [facility] 001 documented in this encounter Visit Diagnoses Diagnosis Chronic systolic heart failure (CMS/HCC) Chronic systolic heart failure documented in this encounter Care Teams Facility Security Officer Relationship Specialty Start Date End Date Shad Reardon [address] [place] [phone] PCP - General Family Medicine 02/08/25 documented as of this encounter
--- OUTSIDE RECORDS SUMMARY | 2025-04-02 09:27 | EXTERNAL MEDICAL SUMMARY RPT | Encounter Summary ---
Author Organization [facility] Address [address] [place] [address] Care Team Providers Care Oakes Machine Operator Name Role Phone Shad Reardon Primary Care Provider [phone] Encounter Details Date Type Department Care Team (Late Contact Info) Description 05/12/2023 Abstract [facility] Cardiology [address], [facility] [place] [address] Olinda Driscoll MD [address] [place] [address] [phone] Social History Tobacco Use Types Packs/Day Years Used Date Smoking Tobacco: Former Cigarettes 0.3 7 1 957 - 1311 Passive Smoke Exposure: Never Smokeless Tobacco: Never [...] Description 04/10/2025 11:00 AM PST Office Visit [facility] Cardiology [address] [phone] Vinay Abbasi ARNP [address] [place] [address] [phone] 07/21/2025 11:00 AM PDT Office Visit [facility] Cardiology [address], [place] [phone] Olinda Driscoll MD [address] [place] [address] [address] [place] [address] documented as of this encounter Visit Diagnoses Not on filedocumented in this encounter Care Teams Oakes Machine Operator Relationship Specialty Start Date End Date Shad Reardon [address] [place] [phone] PCP - General Family Medicine 02/08/25 documented as of this encounter
--- OUTSIDE RECORDS SUMMARY | 2025-04-02 09:27 | EXTERNAL MEDICAL SUMMARY RPT | Patient Health Record ---
Author Organization Darinel Okeefe MD [facility] Address [address] [facility] [address] [place], [place] [phone] Care Team Providers Care Mounted Police Officer Name Role Phone Darinel Okeefe Primary Care Provider [phone] ALLERGIES Allergen (clinical drug ingredient) Drug/Non Drug Allergy documented on EMR Reaction Allergy Type Onset Date Status hydrocodone hives Drug Allergy Activ e tamsulosin Flomax (uncoded) Unknown Allergy Ac tive Levaquin (uncoded) Unknown Allergy A ctive Penicillin (uncoded) Unknown Allergy Active REASON FOR REFERRAL No Information MEDICATIONS Medication SIG (Take, Route, Frequency, Duration) Notes Start Date End Date Status Vitamin B12 2500 mcg 1 tab(s) sublingual ly once a day Active Arava 20 mg TAKE 1 TABLET BY DARREL TH ONCE A DAY WITH FOOD for 90 days Active Eliquis 5 mg 1 tab(s) orally 2 ti mes a day Active Vitamin D3 5000 intl units 1 cap(s) orally every day Active ezetimibe 10 mg 1 tab(s) orally once a day for 30 day(s) Active ProAir HFA CFC free 90 mcg/inh 2 puff(s) inhaled 4 times a day Active Lasix 40 mg 1 tab(s) orally M-W-F Active Potassium Chlorate 20mcg 1 cap(s) by darrel th 1 time a day Active metFORMIN 500 mg 2 tabs in AM & 1 tab in PM orally Active multi vit 1 q other day Active Tylenol #3 prn Active lisinopril 10 mg 1 1/2 tab(s) orally once a day Active Reservatrol 500 mg 1 tab q day Active nitroglycerin 2.5 mg 1 cap(s) orally 1 t patricia a day Active SOCIAL HISTORY Sex Assigned At : Social History Observation Description Sex Assigned At Unknown PROBLEMS Problem Type ICD Code Onset Dates Problem Status W/U Status Risk SNOMED Code Notes Problem Encounter for long-term (current) use of other medications (Z79.899) Active confirmed 076951975 Problem Rheumatoid arthritis of multiple sites without organ or system involvement with positive rheumatoid factor (M05.79) Active confirmed 952990114 Problem 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 Metabolic Panel (14) 02/04/2018 -Comp. Metabolic Panel (14) 11/04/2017 COMPREHENSIVE METABOLIC PANEL 07/23/2021 CBC (INCLUDES DIFF/PLT) 07/23/2021 Insurance Providers Payer Name Payer Address Payer Phone Subscriber Number Group Number Insured Name Patient Relationship to Insured Coverage Start Date Coverage End Date Medicare [employer] [address] [place] [phone] [id number] Donaldo Webb Self - patient is the insured [employer] [address] [place] [address] [id number] Donaldo Webb Self - patient is the insured MEDICAL (GENERAL) HISTORY Medical History History ICD Code Rheumatoid arthritis Osteoarthritis w/Degenerative Disc Ds Diabetes Hypertension BPH Sleep apnea Coronary heart disease Peripheral neuropathy Rheumatoid arthritis [facility] use of medications Vitamin D deficiency NOS LEFT FIBULA FRACTURE POST FALL TIA Surgical History Surgery Date(Month/Year) Deviated septum repair ? Vasectomy ? Circumcision 1970 Right knee surgery (X3) [phone] Right shoulder surgery 2006 3 vessel CABG 06/22/11 Left cochlear implant 01/25/16 LEFT FIBULA FRACTURE REPAIR, LIGAMENT RE PAIR 11/04/2018 Removed hardware(long pin) from left brent t. 01/31/19
--- OUTSIDE RECORDS SUMMARY | 2025-04-02 09:27 | EXTERNAL MEDICAL SUMMARY RPT | Encounter Summary ---
Author Organization [facility] Address [address] [place] [address] Care Team Providers Care Jig And Fixture Builder Apprentice Name Role Phone Shad Reardon Primary Care Provider Encounter Details Date Type Department Care Team (Late Contact Info) Description 02/07/2025 Abstract [facility] Cardiology [address] [address] Vinay Abbasi ARNP [address] [place] [address] Social History Tobacco Use Types Packs/Day Years Used Date Smoking Tobacco: Former Cigarettes 0.3 7 1 957 - 1892 Passive Smoke Exposure: Never Smokeless Tobacco: Never [...] Description 04/10/2025 11:00 AM PST Office Visit [facility] Cardiology [address] [address] Vinay Abbasi ARNP [address] [place] [address] 07/21/2025 11:00 AM PDT Office Visit [facility] Cardiology [address], [place] [phone] Olinda Driscoll MD [address] [place] [address] [address] [place] [address] documented as of this encounter Visit Diagnoses Not on filedocumented in this encounter Care Teams Jig And Fixture Builder Apprentice Relationship Specialty Start Date End Date Shad Reardon [address] [place] [address] PCP - General Family Medicine 02/08/25 documented as of this encounter
--- OUTSIDE RECORDS SUMMARY | 2025-04-02 09:27 | EXTERNAL MEDICAL SUMMARY RPT | Encounter Summary ---
Author Organization [facility] Address [address] [place] [address] Care Team Providers Care Supervisor Irrigation Name Role Phone Shad Reardon Primary Care Provider [phone] Encounter Details Date Type Department Care Team (Late st Contact Info) Description 11/08/[address] [facility] Cardiology [address] [address] Olinda Driscoll MD [address] [place] [address] [phone] Social History Tobacco Use Types Packs/Day Years Used Date Smoking Tobacco: Former Cigarettes 0.3 7 1 957 - 7764 Passive Smoke Exposure: Never Smokeless Tobacco: Never [...] PST Office Visit [facility] Cardiology [address] [address] Vinay Abbasi ARNP [address] [place] [address] [phone] 07/21/2025 11:00 AM PDT Office Visit [facility] Cardiology [address] [place] [phone] Olinda Driscoll MD [address] [place] [address] [address] [place] [address] documented as of this encounter Visit Diagnoses Not on filedocumented in this encounter Care Teams Supervisor Irrigation Relationship Specialty Start Date End Date Shad Reardon [address] [place] [phone] PCP - General Family Medicine 02/08/25 documented as of this encounter
--- NOTE | 2025-04-02 12:42 | PT Plan of Care ---
PT Inpatient Plan of Care DIAGNOSIS Diagnosis: acute hypoxic RF; acute bronchitis Referring Provider: Derick Hernandez Patient Status: Inpatient CHIEF COMPLAINT Chief Complaint: SOB Onset of Chief Complaint: NURSE PRACTITIONER ADULT on 03/31/25 MEDICAL/SURGICAL HISTORY Medical History Atrial fibrillation Atrial fibrillation Coronary artery disease Coronary artery disease Hypertension Hypertension BALANCE/FUNCTIONAL RESULTS Sitting Balance: Good Standing Balance: Fair Tinetti Composite Score (Balance + Gait): 17 Tinetti Assessment Interpretation: High Fall Risk ASSESSMENT Assessment: The pt is an 84 y/o M who arrived to the ED on 03/31/25 due to worsening SOB, he was hospitalized with acute hypoxic RF and acute bronchitis. PMH includes HF with rEF, a-fib, CAD, and HTN. Please see chart for complete medical hx. The pt was received resting comfortably supine in bed and presented today with mildly decreased B UE and LE strength, decreased activity tolerance, and mild instability when standing. All of which limited his tolerance with functional mobility. He demo'd safe hand placement and sequencing throughout all transfers and mobility this session without requiring any cues. His overall tolerance throughout this assessment was limited by fatigue. At this time recommend continued skilled PT intervention while in the acute setting and DC home with therapy for further rehab once pt medically stable. This plan was discussed with the pt and he was in agreement with this. At the end of the session the pt was supine in bed with call light in reach, bed alarm on, and all needs met. DIESEL FLEET MECHANIC and updated on pt's status and DC rec. PATIENT/FAMILY GOALS Patient/Family Goals: To get stronger and stop falling GOALS Improve supine to sit to:: Independent Improve sit to stand to:: Modified Independent Improve pivot transfer ability to:: Modified Independent Improve sit to supine to:: Independent Other transfer goal:: STS with FWW Improve gait ability to:: Ind Advance Assistive Device to:: Front Wheeled Walker Increase distance walked to (in feet):: 50 PLAN Frequency: 1-2x/day Duration: Until goals are met DISCHARGE RECOMMENDATIONS Discharge Location: Previous Living Situation Support/Services Needed: Home Health P.T. Other Discharge Equipment: pt owns all recommended DME Transport Needs at Discharge: Personal vehicle
[2025-04-02 13:33] VITALS: BP 107/58; TEMP 97.7; O2SAT 94
== END 2025-04-02 12:45 | disposition home health service (06) | DRG 189 ==
LOC: MS2 03:54 → ED 03:54 → MS2 14:19
PROVIDERS: ADMIT Internal Medicine; ATTEND Internal Medicine

== ENCOUNTER 2025-04-23 11:51 | Inpatient (IN) ==
--- NOTE | 2025-04-23 11:59 | ED Physician Documentation ---
History of Present Illness Stated complaint Stated Complaint: SOA/CPAP Chief complaint Chief Complaint: Resp History obtained from History obtained from: Patient, Family and EMS Additonal information Additional information: This is an 78-year-old gentleman with history of HFrEF, CABG x 3 in 2011, A-fib on Eliquis, likely COPD. He was admitted to the hospital on the sixth of this month for bronchitis and sent home on steroids. He has completed that course. Overnight last night he became more short of breath with reportedly productive cough. Much of the history is from EMS and the as the patient is very hard of hearing. Prehospital he received 1 DuoNeb, 1 albuterol, and 125 mg of Solu- Medrol IV. He is on CPAP and feeling better but not much clinical change according to paramedics. No chest pain. He does have left leg swelling which is chronic from a prior fracture. Meds/Allgy Home Medications Ambulatory Orders Medication Instructions Recorded Confirmed apixaban 5 mg tablet (Eliquis) 5 mg PO BID 11/12/22 leflunomide 20 mg tablet (Arava) 20 mg PO DAILY 03/31/25 metoprolol succinate 25 mg 25 mg PO DAILY 11/12/2209/18 tablet,extended release 24 hr silodosin 8 mg capsule (Rapaflo) 8 mg PO DAILY 3 03/31/25 trospium 60 mg capsule,extended 60 mg PO DAILY 3 03/31/25 release 24 hr furosemide 20 mg tablet 20 mg PO DAILY 09/24/2309/18 isosorbide mononitrate 30 mg 30 mg PO DAILY 09/24/23 1 06/01/24 tablet,extended release 24 hr sacubitril 24 mg-valsartan 26 mg 0.5 tab PO BID 03/31/25 tablet (Entresto) spironolactone 25 mg tablet 12.5 mg PO DAILY 09/24/23 03/31/25 (Aldactone) albuterol sulfate 90 mcg/actuation 2 puff inhalation Q 6H PRN 01/19/25 03/31/25 aerosol inhaler (Ventolin HFA) shortness of breath or wheezing gabapentin 100 mg capsule 100 mg PO QPM 01/19/2503/31 albuterol sulfate 2.5 mg/3 mL 2.5 mg inhalation Q4H UT N 03/31/25 03/31/25 (0.083 %) solution for nebulization shortness of breat h or wheezing empagliflozin 10 mg tablet 10 mg PO DAILY 03/31/2509/18 (Jardiance) mirabegron 50 mg tablet,extended 50 mg PO QPM 03/31/25 03/31/25 release 24 hr prednisone 20 mg tablet 40 mg (2 x 20 mg) PO DAILY 3 days 04/02/25 #6 tabs Allergies Allergies Allergy/AdvReac Type Severity Reaction Status Date / Time hydrocodone Allergy Unknown Verified 04/23/25 11:53 levofloxacin (From Levaquin) Allergy Unknown Verified 04/23/25 11:53 linagliptin (From Jentadueto) Allergy Unknown Verified 04/23/25 11:53 Penicillins Allergy Unknown Verified 04/23/25 11:53 tamsulosin (From Flomax) Allergy Unknown Verified 04/23/25 11:53 PFSH Active Problems All Active Problems (Updated 04/23/25 @ 13:18 by Marquis James MD) Pressure ulcer (Acute) Respiratory failure (Acute) Dyspnea (Acute) Heart failure with reduced ejection fraction (Acute) Acute bronchitis (Acute) Obstructive sleep apnea of adult (Chronic) Medical History Medical History Atrial fibrillation Atrial fibrillation Coronary artery disease Coronary artery disease Hypertension Hypertension Social History Social History (Updated 04/23/25 @ 12:05 by Jovani Miguel RN) Smoking Status: Former smoker If you are a former smoker, when did you quit? (Date/Year): Unsure - years ago Number of Years Smoked: 7 How many cigarettes a day do you smoke? (20 cigarettes=1 Pk): 8 Second hand tobacco smoke exposure: No Do you dip or chew tobacco?: No Do you vape?: No Living arrangement: At home Marital Status: Living Condition: With spouse/s.o. Level: Assisted Do you feel safe in your home environment?: Yes History of physical, verbal, emotional, or financial abuse?: No Substance Use: denies use POLST Patient has POLST: Yes Exam Exam Vital Signs: Vital Signs x48h Temp Pulse Resp BP Pulse Ox O2 Flow Rate 04/23/25 12:57 77 22 138/67 H 97 04/23/25 12:23 78 4 04/23/25 12:17 76 22 04/23/25 12:16 77 23 156/76 H 96 04/23/25 12:07 85 24 139/91 H 94 04/23/25 11:54 36.2 C L 88 26 H 177/101 H 98 15 Constitutional Tachypneic, he is on CPAP, very hard of hearing Respiratory Tachypneic on CPAP with rhonchorous wheezy lungs throughout. Cardiovascular Cannot hear heart sounds well with loud breath sounds and CPAP ongoing Back/Pelvis He has 2 small grade 2 sacral pressure ulcers measuring about a centimeter in diameter each. Extremities 1+ right and 2+ left pitting pedal edema without tenderness. Results Vitals Vitals: Vital Signs - 24 hr 04/23/25 11:54 04/23/25 12:07 04/23/25 12:13 Temperature 36.2 C L Temperature Source Temporal Artery Scan Pulse Rate 88 85 Respiratory Rate 26 H 24 Blood Pressure 177/101 H 139/91 H O2 Saturation 98 94 Oxygen Delivery Method Bi-pap O2 Source CPAP BIPAP If not protocol: Oxygen Flow, liters/minute 15 Fraction of Inspired Oxygen (FIO2) Pain Intensity 0 0 04/23/25 12:16 04/23/25 12:17 04/23/25 12:23 Temperature Temperature Source Pulse Rate 77 76 78 Respiratory Rate 23 22 Blood Pressure 156/76 H O2 Saturation 96 Oxygen Delivery Method O2 Source BIPAP BIPAP If not protocol: Oxygen Flow, liters/minute 4 Fraction of Inspired Oxygen (FIO2) 60 Pain Intensity 0 04/23/25 12:57 Temperature Temperature Source Pulse Rate 77 Respiratory Rate 22 Blood Pressure 138/67 H O2 Saturation 97 Oxygen Delivery Method O2 Source BIPAP If not protocol: Oxygen Flow, liters/minute Fraction of Inspired Oxygen (FIO2) Pain Intensity 0 Oxygen O2 Source BIPAP EKG (time done) 1158: EKG releavant findings:: EKG personally interpreted by author of this note. Relevant findings are: There is quite a bit of artifact due to his respiratory status. Computer reading it is atrial flutter but it is sinus rhythm with frequent PVCs. No obvious acute ischemic findings. Labs Labs: Laboratory Tests 04/23/25 04/23/25 04/23/25 12:00 12:14 12:47 WBC 7.9 RBC 4.43 L Hgb 13.6 L Hct 43.1 MCV 97.3 H MCH 30.7 MCHC 31.6 L RDW 14.9 Plt Count 184 MPV 10.8 Neut # (Auto) 4.1 Lymph # (Auto) 2.3 [place] # (Auto) 0.9 Eos # (Auto) 0.6 Baso # (Auto) 0.1 Absolute Nucleated RBC 0.00 Nucleated RBC % 0.0 D-Dimer 259.4 H VBG pH 7.302 L VBG pCO2 68.8 H VBG pO2 34.8 VBG HCO3 34.3 H VBG Total CO2 36.4 H VBG O2 Saturation 50.0 L VBG Base Excess 7.7 H Sodium 140 Potassium 4.0 Chloride 104 Carbon Dioxide 30 Anion Gap 6.0 BUN 18 Creatinine 1.0 Estimated GFR (MDRD) 71 L Glucose 187 H Lactic Acid 1.4 Calcium 9.8 Phosphorus 3.4 Magnesium 2.0 Total Bilirubin 0.4 AST 14 ALT 17 Alkaline Phosphatase 75 B-Natriuretic Peptide 275 H Total Protein 6.4 Albumin 3.6 Globulin 2.8 Albumin/Globulin Ratio 1.3 Nasal Adenovirus (PCR) NOT DETECTED Nasal B. parapertussis DNA (PCR) NOT DETECTED Nasal Coronavir 229E PCR NOT DETECTED Nasal Coronavir HKU1 PCR NOT DETECTED Nasal Coronavir NL63 PCR NOT DETECTED Nasal Coronavir OC43 PCR NOT DETECTED Nasal Enterovir/Rhinovir PCR NOT DETECTED Nasal Influenza B PCR NOT DETECTED Nasal Influenza A PCR NOT DETECTED Nasal Parainfluen 1 PCR NOT DETECTED Nasal Parainfluen 2 PCR NOT DETECTED Nasal Parainfluen 3 PCR NOT DETECTED Nasal Parainfluen 4 PCR NOT DETECTED Nasal RSV (PCR) NOT DETECTED Nasal B.pertussis DNA PCR NOT DETECTED Nasal C.pneumoniae (PCR) NOT DETECTED Matias Human Metapneumo PCR NOT DETECTED Nasal M.pneumoniae (PCR) NOT DETECTED Nasal SARS-CoV-2 (PCR) NOT DETECTED PD Medical Decision Making ED course ED course: 84-year-old gentleman presents with acute respiratory illness with the above history. Differential diagnosis would include primary pulmonary disease which is most likely given abnormal breath sounds, less likely would be CHF or PE. He had already received a DuoNeb and Solu-Medrol on arrival. I ordered 10 mg of albuterol. Single view chest x-ray independently interpreted by me with final read received was unremarkable. D-dimer borderline positive but age-adjusted it would be negative ruling out PE. Also very unlikely to start with since he is on Eliquis. On recheck at 1:05 PM still very wheezy but we were able to de-escalate him off of positive airway pressures to a nasal cannula. Venous blood gas showing some acute CO2 retention. Will order another neb and spoke with Dr. Estevez for admission at 1:10 PM. Discharge Plan Discharge Patient Disposition: ED Place in Observation Condition: Serious Clinical Impression: Dyspnea Qualifiers: Dyspnea type: shortness of breath Qualified Code(s): R06.02 - Shortness of breath Respiratory failure Qualifiers: Chronicity: acute Respiratory failure complication: hypercapnia Qualified Code(s): J96.02 - Acute respiratory failure with hypercapnia Pressure ulcer Qualifiers: Pressure injury location: sacral region Pressure injury stage: stage 2 Qu alified Code(s): L89.152 - Pressure ulcer of sacral region, stage 2 Prescriptions: No Action leflunomide [Arava] 20 MG tablet 20 mg PO DAILY Rx Instructions: QD metoprolol succinate 25 MG tablet extended release 24 hr 25 mg PO DAILY Rx Instructions: QD trospium 60 MG capsule,extended release 24hr 60 mg PO DAILY Rx Instructions: QD silodosin [Rapaflo] 8 MG capsule 8 mg PO DAILY Rx Instructions: QD Eliquis 5 MG tablet 5 mg PO BID isosorbide mononitrate 30 MG tablet extended release 24 hr 30 mg PO DAILY Rx Instructions: QD spironolactone [Aldactone] 25 MG tablet 12.5 mg PO DAILY Rx Instructions: QD furosemide 20 MG tablet 20 mg PO DAILY Rx Instructions: QD sacubitril-valsartan [Entresto] 1 EACH tablet 0.5 tab PO BID Rx Instructions: QD albuterol sulfate 2.5 mg /3 mL (0.083 %) solution for nebulization 2.5 mg inhalation Q4H PRN (Reason: shortness of breath or wheezing) Patient Comments: INHALE THE CONTENTS OF 1 VIAL VIA NEBULIZER 4-6 TIMES DILY NEEDED Jardiance 10 mg tablet 10 mg PO DAILY Patient Comments: TAKE ONE TABLET BY MOUTH ONE TIME DAILY for chronic heart failure mirabegron 50 mg tablet extended release 24 hr 50 mg PO QPM prednisone 20 mg tablet 40 mg PO DAILY 3 Days Qty: 6 0RF gabapentin 100 mg capsule 100 mg PO QPM albuterol sulfate [Ventolin HFA] 90 mcg/actuation HFA aerosol inhaler 2 puff inhalation Q6H PRN (Reason: shortness of breath or wheezing) Print Language: Georgian Stand Alone Forms: PCP List, [facility]
--- OUTSIDE RECORDS SUMMARY | 2025-04-23 12:02 | EXTERNAL MEDICAL SUMMARY RPT | Continuity of Care Document ---
Author Organization [place] Address [address] [place] [id number] Phone Care Team Providers Care Hims Clerk Name Role Phone Unavailable Unavailable Unavailable Shad Reardon Unavailable Unavailable Allergies and Intolerances date description facility reaction severity 2025-01-19 10:00 [id number]^Penicilli ns^^ Penicillins^^allergy.id [facility] Unknown (no severity) 2025-01-31 10:00 [id number]^Penicilli ns^^ Penicillins^^allergy.id [facility] Unknown (no severity) 2025-02-14 10:00 [id number]^Penicilli ns^^ Penicillins^^allergy.id [facility] Unknown (no severity) 2025-03-31 10:00 [id number]^Penicilli ns^^ Penicillins^^allergy.id [facility] Unknown (no severity) 2025-01-19 10:00 [id number]^hydrocodo ne^^ hydrocodone^^allergy.id [facility] Unknown (no severity) 2025-01-31 10:00 [id number]^hydrocodo ne^^ hydrocodone^^allergy.id [facility] Unknown (no severity) 2025-02-14 10:00 [id number]^hydrocodo ne^^ hydrocodone^^allergy.id [facility] Unknown (no severity) 2025-03-31 10:00 [id number]^hydrocodo ne^^ hydrocodone^^allergy.id [facility] Unknown (no severity) 2025-01-19 10:00 [id number]^tamsulosi n^^F rom Flomax^^allergy.id [facility] Unknown (no severity) 2025-01-31 10:00 [id number]^tamsulosi n^^F rom Flomax^^allergy.id [facility] Unknown (no severity) 2025-02-14 10:00 [id number]^tamsulosi n^^F rom Flomax^^allergy.id jasmina [facility] Unknown (no severity) 2025-03-31 10:00 [id number]^tamsulosi n^^F rom Flomax^^allergy.ana jasmina [facility] Unknown (no severity) 2025-01-19 10:00 [id number]^levofloxa christina^ ^From Levaquin^^allergy.ana anaCurioosnereida [facility] Unknown (no severity) 2025-01-31 10:00 [id number]^levofloxa christina^ ^From Levaquin^^allergy.ana anaCurioosnereida [facility] Unknown (no severity) 2025-02-14 10:00 [id number]^levofloxa christina^ ^From Levaquin^^allergy.ana jasmina [facility] Unknown (no severity) 2025-03-31 10:00 [id number]^levofloxa christina^ ^From Levaquin^^allergy.ana jasmina [facility] Unknown (no severity) 2025-01-19 10:00 [id number]^linaglipt in^^ From Jentadueto^^allergy.ana anaUrban Times [facility] Unknown (no severity) 2025-01-31 10:00 [id number]^linaglipt in^^ From Jentadueto^^allergy.ana anaCurioosnereida [facility] Unknown (no severity) 2025-02-14 10:00 [id number]^linaglipt in^^ From Jentadueto^^allergy.ana anaUrban Times [facility] Unknown (no severity) 2025-03-31 10:00 [id number]^linaglipt in^^ From Jentadueto^^allergy.[facility] Unknown (no severity) 2025-02-12 10:00 Penicillins [facility] (no reaction) (no severity) 2025-02-12 10:00 hydrocodone [facility] (no reaction) (no severity) 2025-02-12 10:00 levofloxacin [facility] (no reaction ) (no severity) 2025-02-12 10:00 linagliptin [facility] (no reaction) (no severity) 2025-02-12 10:00 metformin [facility] (no reaction) (no severity) 2025-02-12 10:00 tamsulosin [facility] (no reaction) (no severity) 2025-02-12 14:42:32 [facility] (no reaction) (no severity) 2025-02-12 14:42:32 [facility] (no reaction) (no severity) 2025-02-12 14:42:32 [facility] (no reaction) (no severity) 2025-02-12 14:42:32 [facility] (no reaction) (no severity) 2025-02-12 14:42:32 [facility] (no reaction) (no severity) 2025-02-12 14:42:32 [facility] (no reaction) (no severity) Medications date description facility 2025-02-13 00:00 Prednisone [facility] 2025-02-13 00:00 [facility] Problems date description facility 2025-01-24 08:53 [facility]25-02-02 08:15 Unspecified injury of head, ini tial encounter [facility] 2025-02-03 07:46 Headache, unspecified [facility] 2025-02-03 08:09 [facility]ness [facility] 2025-02-03 08:09 Other forms [facility]pnea [facility] 2025-02-12 00:00 Exacerbation of reactive airway disease [facility] 2025-02-20 09:04 Obstructive sleep apnea (adult) (pediatric) [facility] 2025-02-20 13:25 [facility]ezing [facility] 2025-03-09 16:25 Heart failure, unspecified [employer] 2025-03-09 16:25 Chronic obstructive pulmonary d isease, unspecified [facility] 2025-03-10 11:14 Anxiety disorder, [facility] 2025-03-10 11:14 Obstructive sleep apnea (adult) (pediatric) [facility] 2025-03-10 11:14 Heart failure, unspecified [facility] 2025-03-10 11:14 Shortness of breath [facility] 2025-03-10 11:14 Other forms [facility] dyspnea [facility] 2025-03-10 11:14 [facility] 2025-03-10 11:14 Nausea idbeHolganix [facility] 2025-03-10 11:14 Abdominal [facility]) [facility] 2025-03-10 11:14 [facility]ache, [facility]25-03-10 11:14 Unspecified injury of head, ini [facility]ial [facility] 2025-03-10 11:30 Anxiety disorder, unspecified [facility] 2025-03-10 11:30 Heart failure, unspecified Whid [employer] [facility] 2025-03-10 11:30 Nausea idbeHolganix [facility] 2025-03-10 11:30 Abdominal distension (gaseous) [facility] 2025-03-10 11:31 Unspecified injury of head, ini [facility]ial [facility] 2025-03-10 11:33 [facility]ache, unspecified [facility] 2025-03-10 11:34 [facility]ness [facility] breath [facility] 2025-03-10 11:34 Other forms of dyspnea [facility] 2025-03-10 11:35 [facility]zing [facility] 2025-03-10 11:37 Obstructive sleep apnea (adult) (pediatric) [facility] 2025-03-10 11:39 Obstructive sleep apnea (adult) (pediatric) [facility] 2025-03-10 16:38 Heart failure, unspecified id [employer] [facility] 2025-03-10 16:38 Chronic obstructive pulmonary d isease, unspecified idbey [facility] 2025-03-10 16:41 Heart failure, unspecified [employer] [facility] 2025-03-10 16:41 Chronic obstructive pulmonary d isease, unspecified idbey [facility] 2025-03-13 10:50 Heart failure, unspecified [employer] [employer] 2025-03-13 10:50 Chronic obstructive pulmonary d isease, unspecified [facility] 2025-03-14 00:02 Heart failure, unspecified [employer] 2025-03-14 00:02 Chronic obstructive pulmonary d isease, unspecified idbey [facility] 2025-03-14 13:46 Heart failure, unspecified [employer] 2025-03-14 13:46 Chronic obstructive pulmonary d isease, unspecified [employer] 2025-03-24 10:00 Anxiety disorder, unspecified [employer] 2025-03-24 10:00 Nausea [employer] 2025-03-24 10:00 Abdominal distension (gaseous) [employer] 2025-03-31 14:23 Chronic obstructive pulmonary disease with (acute) exacerbation [employer] 2025-03-31 14:23 Hypoxemia [facility] 2025-03-31 14:27 Chronic obstructive pulmonary disease with (acute) exacerbation [facility] 2025-03-31 14:27 Hypoxemia [facility] 2025-03-31 14:28 Chronic obstructive pulmonary disease with (acute) exacerbation [facility] 2025-03-31 14:28 Hypoxemia [facility] 2025-03-31 16:33 Chronic obstructive pulmonary disease with (acute) exacerbation [facility] 2025-03-31 16:33 Hypoxemia [facility] 2025-04-01 11:06 Essential (primary) hypertensio n [employer] 2025-04-01 11:06 Atherosclerotic hear t disease of [place] coronary artery without angina pectoris [employer] 2025-04-01 11:06 Unspecified atrial fibrillation [employer] 2025-04-01 11:06 Unspecified systolic (congestiv e) heart failure [employer] 2025-04-01 11:06 Acute bronchitis, unspecified [employer] 2025-04-01 11:06 Chronic obstructive pulmonary disease with (acute) exacerbation [employer] 2025-04-01 11:06 Acute respiratory failure with hypoxia [employer] 2025-04-01 11:06 Hypoxemia [facility] 2025-04-02 07:54 Essential (primary) hypertensio n [employer] 2025-04-02 07:54 Atherosclerotic hear t disease of [place] coronary artery without angina pectoris [employer] 2025-04-02 07:54 Unspecified atrial fibrillation [employer] 2025-04-02 07:54 Unspecified systolic (congestiv e) heart failure [employer] 2025-04-02 07:54 Acute bronchitis, unspecified [employer] 2025-04-02 07:54 Chronic obstructive pulmonary disease with (acute) exacerbation [facility] 2025-04-02 07:54 Acute respiratory failure with hypoxia [facility] 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 [facility] 2025-04-02 12:06 Unspecified atrial fibrillation [facility] 2025-04-02 12:06 Unspecified systolic (congestiv e) heart failure [facility] 2025-04-02 12:06 Acute bronchitis, unspecified [employer] 2025-04-02 12:06 Chronic obstructive pulmonary disease with (acute) exacerbation [facility] 2025-04-02 12:06 Acute respiratory failure with hypoxia [facility] 2025-04-02 12:06 Hypoxemia [facility] 2025-04-02 12:12 Essential (primary) hypertensio n [facility] 2025-04-02 12:12 Atherosclerotic hear t disease of [place] coronary artery without angina pectoris [facility] 2025-04-02 12:12 Unspecified atrial fibrillation [facility] 2025-04-02 12:12 Unspecified systolic (congestiv e) heart failure [facility] 2025-04-02 12:12 Acute bronchitis, unspecified [employer] [facility] 2025-04-02 12:12 Chronic obstructive pulmonary disease with (acute) exacerbation [facility] 2025-04-02 12:12 Acute respiratory failure with hypoxia [facility] 2025-04-02 12:12 Hypoxemia [facility] 2025-04-02 12:17 Essential (primary) hypertensio n [employer] [facility] 2025-04-02 12:17 Atherosclerotic hear t disease of [place] coronary artery without angina pectoris [facility] 2025-04-02 12:17 Unspecified atrial fibrillation [facility] 2025-04-02 12:17 Unspecified systolic (congestiv e) heart failure [facility] 2025-04-02 12:17 Acute bronchitis, unspecified [employer] 2025-04-02 12:17 Chronic obstructive pulmonary disease with (acute) exacerbation [facility] 2025-04-02 12:17 Acute respiratory failure with hypoxia [facility] 2025-04-02 12:17 Hypoxemia [facility] 2025-04-02 13:33 Essential (primary) hypertensio n [facility] 2025-04-02 13:33 Atherosclerotic hear t disease of [place] coronary artery without angina pectoris [facility] 2025-04-02 13:33 Unspecified atrial fibrillation [facility] 2025-04-02 13:33 Unspecified systolic (congestiv e) heart failure [facility] 2025-04-02 13:33 Acute bronchitis, unspecified [employer] [facility] 2025-04-02 13:33 Chronic obstructive pulmonary disease with (acute) exacerbation [facility] 2025-04-02 13:33 Acute respiratory failure with hypoxia [facility] 2025-04-02 13:33 Hypoxemia [facility] 2025-04-03 14:46 Essential (primary) hypertensio n [facility] 2025-04-03 14:46 Atherosclerotic hear t disease of [place] coronary artery without angina pectoris [facility] 2025-04-03 14:46 Unspecified atrial fibrillation [facility] 2025-04-03 14:46 Unspecified systolic (congestiv e) heart failure [facility] 2025-04-03 14:46 Acute bronchitis, unspecified [facility] 2025-04-03 14:46 Chronic obstructive pulmonary disease with (acute) exacerbation [facility] 2025-04-03 14:46 Acute respiratory failure with hypoxia [facility] 2025-04-03 14:46 Hypoxemia [facility] 2025-04-04 12:38 Essential (primary) hypertensio n [facility] 2025-04-04 12:38 Atherosclerotic hear t disease of [place] coronary artery without angina pectoris [facility] 2025-04-04 12:38 Unspecified atrial fibrillation [facility] 2025-04-04 12:38 Unspecified systolic (congestiv e) heart failure [facility] 2025-04-04 12:38 Acute bronchitis, unspecified [employer] 2025-04-04 12:38 Chronic obstructive pulmonary disease with (acute) exacerbation [facility] 2025-04-04 12:38 Acute respiratory failure with hypoxia [facility] 2025-04-04 12:38 Dyspnea, unspecified [facility] 2025-04-04 12:38 Shortness of breath [facility] 2025-04-04 12:38 [facility]ezing [facility] 2025-04-04 12:38 Hypoxemia [facility] 2025-04-04 13:04 Essential (primary) hypertensio n [facility] 2025-04-04 13:04 Atherosclerotic hear t disease of [place] coronary artery without angina pectoris [facility] 2025-04-04 13:04 Unspecified atrial fibrillation [facility] 2025-04-04 13:04 Unspecified systolic (congestiv e) heart failure [facility] 2025-04-04 13:04 Acute bronchitis, unspecified W [employer] [facility] 2025-04-04 13:04 Chronic obstructive pulmonary disease with (acute) lower respiratory infection [facility] 2025-04-04 13:04 Chronic obstructive pulmonary disease with (acute) exacerbation [facility] 2025-04-04 13:04 Dyspnea, unspecified [facility] 2025-04-04 13:04 Shortness of breath [facility] 2025-04-04 13:04 Wheezing [facility] 2025-04-04 13:04 Hypoxemia [facility] 2025-04-04 13:09 Essential (primary) hypertensio n [facility] 2025-04-04 13:09 Atherosclerotic hear t disease of [place] coronary artery without angina pectoris [facility] 2025-04-04 13:09 Unspecified atrial fibrillation [facility] 2025-04-04 13:09 Unspecified systolic (congestiv e) heart failure [facility] 2025-04-04 13:09 Acute bronchitis, unspecified [employer] [facility] 2025-04-04 13:09 Chronic obstructive pulmonary disease with (acute) exacerbation [employer] [facility] 2025-04-04 13:09 Acute respiratory failure with hypoxia [facility] 2025-04-04 13:09 Dyspnea, unspecified [facility] 2025-04-04 13:09 Shortness of breath [facility] 2025-04-04 13:09 [facility] 2025-04-04 13:09 Hypoxemia [facility] 2025-04-06 13:54 Essential (primary) hypertensio n [facility] 2025-04-06 13:54 Atherosclerotic hear t disease of [place] coronary artery without angina pectoris [facility] 2025-04-06 13:54 Unspecified atrial fibrillation [facility] 2025-04-06 13:54 Unspecified systolic (congestiv e) heart failure [facility] 2025-04-06 13:54 Acute bronchitis, unspecified [facility] 2025-04-06 13:54 Chronic obstructive pulmonary disease with (acute) exacerbation [facility] 2025-04-06 13:54 Dyspnea, unspecified [facility] 2025-04-06 13:54 [facility]ness [facility] 2025-04-06 13:54 Wheezing [facility] 2025-04-06 13:54 Hypoxemia [facility] 2025-04-06 15:20 Essential (primary) hypertensio n [facility] 2025-04-06 15:20 Atherosclerotic hear t disease of [place] coronary artery without angina pectoris [facility] 2025-04-06 15:20 Unspecified atrial fibrillation [facility] 2025-04-06 15:20 Unspecified systolic (congestiv e) heart failure [facility] 2025-04-06 15:20 Acute bronchitis, unspecified [facility] 2025-04-06 15:20 Chronic obstructive pulmonary disease with (acute) exacerbation [facility] 2025-04-06 15:20 Acute respiratory failure with hypoxia [facility] 2025-04-06 15:20 Dyspnea, unspecified [facility] 2025-04-06 15:20 [facility]ness [facility] breath [facility] 2025-04-06 15:20 [facility] 2025-04-06 15:20 [facility]oxemia [facility] 2025-04-12 11:16 Transient alteration of awarene ss [employer] [facility] 2025-04-17 13:43 Obstructive sleep apnea (adult) (pediatric) [facility] 2025-04-18 08:15 Type 2 diabetes davey itus with diabetic neuropathy, unspecified [facility] 2025-04-18 08:15 Essential (primary) hypertensio n [facility] 2025-04-18 08:15 Unspecified atrial fibrillation [facility] 2025-04-18 08:15 Heart failure, unspecified [facility] 2025-04-18 08:15 Encounter for screen ing for diseases of the blood and blood-forming organs and certain disorders involving the immune mechanism [facility] 2025-04-18 08:15 Encounter for screen ing for other suspected endocrine disorder [facility] Procedures date description facility 2025-02-12 00:00 X-ray of chest, [facility] 2025-02-12 00:00 Complete Doppler echocardiograp [facility] Results/Labs test date facility value unit notes Result panel 1 Specimen collection (procedure) (no date) [facility] (missing) (missing) (missing) Result panel 2 Specimen collection (procedure) (no date) [facility] (missing) (missing) (missing) Result panel 3 Specimen collection (procedure) (no date) [facility] (missing) (missing) (missing) Result panel 4 Specimen collection (procedure) (no date) [facility] (missing) (missing) (missing) Result panel 5 Specimen collection (procedure) (no date) [facility] (missing) (missing) (missing) Result panel 6 Specimen collection (procedure) (no date) [facility] (missing) (missing) (missing) Result panel 7 Specimen collection (procedure) (no date) [facility] (missing) (missing) (missing) Result panel 8 Specimen collection (procedure) (no date) [facility] (missing) (missing) (missing) Result panel 9 Specimen collection (procedure) (no date) [facility] (missing) (missing) (missing) Result panel 10 Specimen collection (procedure) (no date) [facility] (missing) (missing) (missing) Result panel 11 Specimen collection (procedure) (no date) [facility] (missing) (missing) (missing) Result panel 12 Specimen collection (procedure) (no date) [facility] (missing) (missing) (missing) Result panel 13 Specimen collection (procedure) (no date) [facility] (missing) (missing) (missing) Result panel 14 Specimen collection (procedure) (no date) [facility] (missing) (missing) (missing) Result panel 15 Specimen collection (procedure) (no date) [facility] (missing) (missing) (missing) Result panel 16 Specimen collection (procedure) (no date) [facility] (missing) (missing) (missing) Result panel 17 Specimen collection (procedure) (no date) [facility] (missing) (missing) (missing) Result panel 18 Specimen collection (procedure) (no date) [facility] (missing) (missing) (missing) Result panel 19 Specimen collection (procedure) (no date) [facility] (missing) (missing) (missing) Result panel 20 Specimen collection (procedure) (no date) [facility] (missing) (missing) (missing) Result panel 21 Specimen collection (procedure) (no date) [facility] (missing) (missing) (missing) Result panel 22 Specimen collection (procedure) (no date) [facility] (missing) (missing) (missing) Result panel 23 Specimen collection (procedure) (no date) [facility] (missing) (missing) (missing) Result panel 24 Specimen collection (procedure) (no date) [facility] (missing) (missing) (missing) Result panel 25 Specimen collection (procedure) (no date) [facility] (missing) (missing) (missing) Result panel 26 Specimen collection (procedure) (no date) [facility] (missing) (missing) (missing) Result panel 27 Specimen collection (procedure) (no date) [facility] (missing) (missing) (missing) Result panel 28 Specimen collection (procedure) (no date) [facility] (missing) (missing) (missing) Result panel 29 Specimen collection (procedure) (no date) [facility] (missing) (missing) (missing) Result panel 30 Specimen collection (procedure) (no date) [facility] (missing) (missing) (missing) Result panel 31 Specimen collection (procedure) (no date) [facility] (missing) (missing) (missing) Result panel 32 Specimen collection (procedure) (no date) [facility] (missing) (missing) (missing) Result panel 33 Specimen collection (procedure) (no date) [facility] (missing) (missing) (missing) Result panel 34 Specimen collection (procedure) (no date) [facility] (missing) (missing) (missing) Result panel 35 Specimen collection (procedure) (no date) [facility] (missing) (missing) (missing) Result panel 36 Specimen collection (procedure) (no date) [facility] (missing) (missing) (missing) Result panel 37 Specimen collection (procedure) (no date) [facility] (missing) (missing) (missing) Result panel 38 Specimen collection (procedure) (no date) [facility] (missing) (missing) (missing) Result panel 39 Specimen collection (procedure) (no date) [facility] (missing) (missing) (missing) Result panel 40 Specimen collection (procedure) (no date) [facility] (missing) (missing) (missing) Result panel 41 Specimen collection (procedure) (no date) [facility] (missing) (missing) (missing) Result panel 42 Specimen collection (procedure) (no date) [facility] (missing) (missing) (missing) Result panel 43 Specimen collection (procedure) (no date) [facility] (missing) (missing) (missing) Result panel 44 Specimen collection (procedure) (no date) [facility] (missing) (missing) (missing) Result panel 45 Specimen collection (procedure) (no date) [facility] (missing) (missing) (missing) Result panel 46 Specimen collection (procedure) (no date) [facility] (missing) (missing) (missing) Result panel 47 Specimen collection (procedure) (no date) [facility] (missing) (missing) (missing) Result panel 48 Specimen collection (procedure) (no date) [facility] (missing) (missing) (missing) Result panel 49 Specimen collection (procedure) (no date) [facility] (missing) (missing) (missing) Result panel 50 Specimen collection (procedure) (no date) [facility] (missing) (missing) (missing) Result panel 51 Specimen collection (procedure) (no date) [facility] (missing) (missing) (missing) Result panel 52 Specimen collection (procedure) (no date) [facility] (missing) (missing) (missing) Result panel 53 Specimen collection (procedure) (no date) [facility] (missing) (missing) (missing) Result panel 54 Specimen collection (procedure) (no date) [facility] (missing) (missing) (missing) Result panel 55 Specimen collection (procedure) (no date) [facility] (missing) (missing) (missing) Result panel 56 Specimen collection (procedure) (no date) [facility] (missing) (missing) (missing) Result panel 57 Specimen collection (procedure) (no date) [facility] (missing) (missing) (missing) Result panel 58 Specimen collection (procedure) (no date) [facility] (missing) (missing) (missing) Result panel 59 Specimen collection (procedure) (no date) [facility] (missing) (missing) (missing) Result panel 60 Specimen collection (procedure) (no date) [facility] (missing) (missing) (missing) Result panel 61 Specimen collection (procedure) (no date) [facility] (missing) (missing) (missing) Result panel 62 Specimen collection (procedure) (no date) [facility] (missing) (missing) (missing) Result panel 63 Specimen collection (procedure) (no date) [facility] (missing) (missing) (missing) Result panel 64 Specimen collection (procedure) (no date) [facility] (missing) (missing) (missing) Result panel 65 Specimen collection (procedure) (no date) [facility] (missing) (missing) (missing) Result panel 66 Specimen collection (procedure) (no date) [facility] (missing) (missing) (missing) Result panel 67 Specimen collection (procedure) (no date) [facility] (missing) (missing) (missing) Result panel 68 Specimen collection (procedure) (no date) [facility] (missing) (missing) (missing) Result panel 69 Specimen collection (procedure) (no date) [facility] (missing) (missing) (missing) Result panel 70 Specimen collection (procedure) (no date) [facility] (missing) (missing) (missing) Result panel 71 Specimen collection (procedure) (no date) [facility] (missing) (missing) (missing) Result panel 72 Specimen collection (procedure) (no date) [facility] (missing) (missing) (missing) Result panel 73 Specimen collection (procedure) (no date) [facility] (missing) (missing) (missing) Result panel 74 Specimen collection (procedure) (no date) [facility] (missing) (missing) (missing) Result panel 75 Specimen collection (procedure) (no date) [facility] (missing) (missing) (missing) Result panel 76 Specimen collection (procedure) (no date) [facility] (missing) (missing) (missing) Result panel 77 Specimen collection (procedure) (no date) [facility] (missing) (missing) (missing) Result panel 78 Specimen collection (procedure) (no date) [facility] (missing) (missing) (missing) Result panel 79 Specimen collection (procedure) (no date) [facility] (missing) (missing) (missing) Result panel 80 Specimen collection (procedure) (no date) [facility] (missing) (missing) (missing) Result panel 81 Specimen collection (procedure) (no date) [facility] (missing) (missing) (missing) Result panel 82 Specimen collection (procedure) (no date) [facility] (missing) (missing) (missing) Result panel 83 Specimen collection (procedure) (no date) [facility] (missing) (missing) (missing) Result panel 84 Specimen collection (procedure) (no date) [facility] (missing) (missing) (missing) Result panel 85 Specimen collection (procedure) (no date) [facility] (missing) (missing) (missing) Result panel 86 Specimen collection (procedure) (no date) [facility] (missing) (missing) (missing) Result panel 87 Specimen collection (procedure) (no date) [facility] (missing) (missing) (missing) Result panel 88 Specimen collection (procedure) (no date) [facility] (missing) (missing) (missing) Result panel 89 Specimen collection (procedure) (no date) [facility] (missing) (missing) (missing) Result panel 90 Specimen collection (procedure) (no date) [facility] (missing) (missing) (missing) Result panel 91 Specimen collection (procedure) (no date) [facility] (missing) (missing) (missing) Result panel 92 Specimen collection (procedure) (no date) [facility] (missing) (missing) (missing) Result panel 93 Specimen collection (procedure) (no date) [facility] (missing) (missing) (missing) Result panel 94 Specimen collection (procedure) (no date) [facility] (missing) (missing) (missing) Result panel 95 Specimen collection (procedure) (no date) [facility] (missing) (missing) (missing) Result panel 96 Specimen collection (procedure) (no date) [facility] (missing) (missing) (missing) Result panel 97 Specimen collection (procedure) (no date) [facility] (missing) (missing) (missing) Result panel 98 Specimen collection (procedure) (no date) [facility] (missing) (missing) (missing) Result panel 99 Specimen collection (procedure) (no date) [facility] (missing) (missing) (missing) Result panel 100 Specimen collection (procedure) (no date) [facility] (missing) (missing) (missing) Result panel 101 Specimen collection (procedure) (no date) [facility] (missing) (missing) (missing) Result panel 102 Specimen collection (procedure) (no date) [facility] (missing) (missing) (missing) Result panel 103 Specimen collection (procedure) (no date) [facility] (missing) (missing) (missing) Result panel 104 Specimen collection (procedure) (no date) [facility] (missing) (missing) (missing) Result panel 105 Specimen collection (procedure) (no date) [facility] (missing) (missing) (missing) Result panel 106 Specimen collection (procedure) (no date) [facility] (missing) (missing) (missing) Result panel 107 NUCLEATED RED BLOOD CELLS AUTO 2025-01-26 09:04 [facility] 0.0 /100wbc (missing) NRBC ABSOLUTE COUNT (AUTO) 2025-01-26 09:04 [facility] 0 .00 x10 3/ul (missing) BASOPHILS # (AUTO) 2025-01-26 09:04 [facility] 0.1 10 3/ul (missing) EOSINOPHILS # (AUTO) 2025-01-26 09:04 [facility] 0.5 10 3/ul (missing) MONOCYTES # (AUTO) 2025-01-26 09:04 [facility] 0.9 10 3/ul (missing) MEAN PLATELET VOLUME 2025-01-26 09:04 [facility] 11.4 fl (missing) HGB - HEMOGLOBIN 2025-01-26 09:04 [facility] 14.1 g /dl (missing) RED CELL DISTRIBUTION WIDTH 2025-01-26 09:04 [facility] 15.2 % (missing) LYMPHOCYTES # (AUTO) 2025-01-26 09:04 [facility] 2.6 10 3/ul (missing) PLT - PLATELET COUNT 2025-01-26 09:04 [facility] 239 10 3/ul (missing) NEUTROPHILS # (AUTO) 2025-01-26 09:04 [facility] 3.7 10 3/ul (missing) MEAN CORPUSCULAR HEMOGLOBIN 2025-01-26 09:04 [facility] 30.5 pg (missing) MEAN CORPUSCULAR HGB CONC 2025-01-26 09:04 [facility] 32 .5 g/dl (missing) RED BLOOD COUNT 2025-01-26 09:04 [facility] 4.62 10 6/ul (missing) HCT - HEMATOCRIT 2025-01-26 09:04 [facility] 43.4 % (missing) WHITE BLOOD COUNT 2025-01-26 09:04 [facility] 7.8 x10 3/ul (missing) MEAN CORPUSCULAR VOLUME 2025-01-26 09:04 [facility] 93.9 fl (missing) Result panel 108 LIPASE 2025-01-26 09:40 [facility] < 10 u/l As of October 2022 testing method has changed, this may include reference ranges. BILIRUBIN,TOTAL 2025-01-26 09:40 [facility] 0.6 mg /dl As of October 2022 testing method has changed, this may include reference ranges. CREATININE 2025-01-26 09:40 [facility] 0.9 mg/dl As of October 2022 testing method has changed, this may include reference ranges. ALBUMIN/GLOBULIN RATIO 2025-01-26 09:40 [facility] 1.3 (missing) (missing) CHLORIDE 2025-01-26 09:40 [facility] 103 mmol/l As of October 2022 testing method has changed, this may include reference ranges. GLUCOSE 2025-01-26 09:40 [facility] 136 mg/dl As of October 2022 testing method has changed, this may include reference ranges. SODIUM 2025-01-26 09:40 [facility] 136 mmol/l (missing) ALT ALANINE AMINOTRANSFERASE 2025-01-26 09:40 [facility] 16 iu/l As of October 2022 testing method has changed, this may include reference ranges. AST ASPARTATE AMINOTRANSFERASE 2025-01-26 09:40 [facility] 17 iu/l As of October 2022 testing method has changed, this may include reference ranges. MAGNESIUM 2025-01-26 09:40 [facility] 2.0 mg/dl As of October 2022 testing method has changed, this may include reference ranges. GLOBULIN 2025-01-26 09:40 [facility] 2.7 g/dl (missing) BUN - BLOOD UREA NITROGEN 2025-01-26 09:40 [facility] 20 mg/dl As of Oct testing method has changed, this may include reference ranges. CARBON DIOXIDE - CO2 2025-01-26 09:40 [facility] 29 mmol/l As of October 2022 testing method has changed, this may include reference ranges. ALBUMIN 2025-01-26 09:40 [facility] 3.6 g/dl As of October 2022 testing method has changed, this may include reference ranges. ANION GAP 2025-01-26 09:40 [facility] 4.0 (missing ) (missing) POTASSIUM 2025-01-26 09:40 [facility] 4.5 mmol/l As of October 2022 testing method has changed, this may include reference ranges. ALKALINE PHOSPHATASE 2025-01-26 09:40 [facility] 57 iu/l As of October 2022 testing method has changed, this may include reference ranges. TOTAL PROTEIN 2025-01-26 09:40 [facility] 6.3 g/dl As of October 2022 testing method has changed, this may include reference ranges. GFR - MDRD 2025-01-26 09:40 [facility] 80 (missin g) The IDMS-traceable MDRD Study Equation has been validated [...] caring for patients older than 70. References: http://www.nkdep. nih.gov/lab-evalu ation/gfr/creatin ine-stand ardization, last updated June 2011. CALCIUM 2025-01-26 09:40 [facility] 9.8 mg/dl As of October 2022 testing method has changed, this may include reference ranges. Result panel 109 SARS-CoV-2 -RESP PCR PANEL 2025-01-31 16:10 [facility] NOT DETECTED (missing) A negative test result for this test indicates that SARS-CoV-2 RNA was not present in the specimen above the limit of detection. Testing performed on the [employer] RP2.1 Panel, a multiplexed nucleic acid repiratory [...] INFLUENZA A- RESP PCR PANEL 2025-01-31 16:10 [facility] NOT DETECTED (missing) Influenza A including subtypes H1, H3, and H1-2009 not detected by the [employer] RP2.1 Panel, a multiplexed nucleic acid test intended for the simultaneous qualitative detection and differentiation of nucleic acids from multiple viral and bacterial respiratory organisms. ADENOVIRUS - RESP PCR PANEL 2025-01-31 16:10 [facility] NOT DETECTED (missing) NO Y NO YES NO NO NO NO Negative results in the setting ofa respiratory illness may be due to infection with pathogens not detected by this test, or lower respiratory tract infection that may not be detected by nasopharyngeal specimen. B. PARAPERTUSSIS- RESP PCR ALBA 2025-01-31 16:10 [facility] NOT DETECTED (missing) Negative results for this organism do not preclude infection with this organism and may require additional laboratory testing (e.g., bacterial and viral culture, immunofluorescence, and radiography) when evaluating a patient with possible respiratory tract infection. B. PERTUSSIS- RESP PCR PANEL 2025-01-31 16:10 [facility] NOT DETECTED (missing) Negative results for this organism do not preclude infection with this organism and may require additional laboratory testing (e.g., bacterial and viral culture, immunofluorescence, and radiography) when evaluating a patient with possible respiratory tract infection. C. PNEUMONIAE- RESP PCR PANEL 2025-01-31 16:10 [facility] NOT DETECTED (missing) Negative results for this organism do not preclude infection with this organism and may require additional laboratory testing (e.g., bacterial and viral culture, immunofluorescence, and radiography) when evaluating a patient with possible respiratory tract infection. M. PNEUMONIAE- RESP PCR PANEL 2025-01-31 16:10 [facility] NOT DETECTED (missing) Negative results for this organism do not preclude infection with this organism and may require additional laboratory testing (e.g., bacterial and viral culture, immunofluorescence, and radiography) when evaluating a patient with possible respiratory tract infection. CORONAVIRUS 229E-RESP PCR 2025-01-31 16:10 [facility] NOT DETECTED (missing) Negative results in the setting ofa respiratory illness may be due to infection with pathogens not detected by this test, or lower respiratory tract infection that may not be detected by nasopharyngeal specimen. CORONAVIRUS HKU1-RESP PCR 2025-01-31 16:10 [facility] NOT DETECTED (missing) Negative results in the setting ofa respiratory illness may be due to infection with pathogens not detected by this test, or lower respiratory tract infection that may not be detected by nasopharyngeal specimen. CORONAVIRUS CG82-LEPX PCR 2025-01-31 16:10 [facility] NOT DETECTED (missing) Negative results in the setting ofa respiratory illness may be due to infection with pathogens not detected by this test, or lower respiratory tract infection that may not be detected by nasopharyngeal specimen. CORONAVIRUS PP92-HSIW PCR 2025-01-31 16:10 [facility] NOT DETECTED (missing) Negative results in the setting ofa respiratory illness may be due to infection with pathogens not detected by this test, or lower respiratory tract infection that may not be detected by nasopharyngeal specimen. HUMAN METAPNEUMOVIRUS 2025-01-31 16:10 [facility] NOT DETECTED (missing) Negative results in the setting ofa respiratory illness may be due to infection with pathogens not detected by this test, or lower respiratory tract infection that may not be detected by nasopharyngeal specimen. INFLUENZA B - RESP PCR PANEL 2025-01-31 16:10 [facility] NOT DETECTED (missing) Negative results in the setting ofa respiratory illness may be due to infection with pathogens not detected by this test, or lower respiratory tract infection that may not be detected by nasopharyngeal specimen. PARAINFLUENZA VIRUS 1 2025-01-31 16:10 [facility] NOT DETECTED (missing) Negative results in the setting ofa respiratory illness may be due to infection with pathogens not detected by this test, or lower respiratory tract infection that may not be detected by nasopharyngeal specimen. PARAINFLUENZA VIRUS 2 2025-01-31 16:10 [facility] NOT DETECTED (missing) Negative results in the setting ofa respiratory illness may be due to infection with pathogens not detected by this test, or lower respiratory tract infection that may not be detected by nasopharyngeal specimen. PARAINFLUENZA VIRUS 3 2025-01-31 16:10 [facility] NOT DETECTED (missing) Negative results in the setting ofa respiratory illness may be due to infection with pathogens not detected by this test, or lower respiratory tract infection that may not be detected by nasopharyngeal specimen. PARAINFLUENZA VIRUS 4 2025-01-31 16:10 [facility] NOT DETECTED (missing) Negative results in the setting ofa respiratory illness may be due to infection with pathogens not detected by this test, or lower respiratory tract infection that may not be detected by nasopharyngeal specimen. RHINOVIRUS/ENTEROVI PETRA 2025-01-31 16:10 [facility] NOT DETECTED (missing) Negative results in the setting ofa respiratory illness may be due to infection with pathogens not detected by this test, or lower respiratory tract infection that may not be detected by nasopharyngeal specimen. RSV- RESP PCR PANEL 2025-01-31 16:10 [facility] NOT DETECTED (missing) Negative results in the setting ofa respiratory illness may be due to infection with pathogens not detected by this test, or lower respiratory tract infection that may not be detected by nasopharyngeal specimen. Result panel 110 NUCLEATED RED BLOOD CELLS AUTO 2025-01-31 16:58 [facility] 0.0 /100wbc (missing) NRBC ABSOLUTE COUNT (AUTO) 2025-01-31 16:58 [facility] 0.00 x10 3/ul (missing) BASOPHILS # (AUTO) 2025-01-31 16:58 [facility] 0.1 10 3/ul (missing) BILIRUBIN,TOTAL 2025-01-31 16:58 [facility] 0.4 mg/dl As of October 2022 testing method has changed, this may include reference ranges. EOSINOPHILS # (AUTO) 2025-01-31 16:58 [facility] 0.8 10 3/ul (missing) MONOCYTES # (AUTO) 2025-01-31 16:58 [facility] 0.8 10 3/ul (missing) CREATININE 2025-01-31 16:58 [facility] 0.9 mg/dl As of October 2022 testing method has changed, this may include reference ranges. ALBUMIN/GLOBULIN RATIO 2025-01-31 16:58 [facility] 1.5 (missing) (missing) LYMPHOCYTES # (AUTO) 2025-01-31 16:58 [facility] 1.8 10 3/ul (missing) MAGNESIUM 2025-01-31 16:58 [facility] 1.8 mg/dl As of October 2022 testing method has changed, this may include reference ranges. MEAN PLATELET VOLUME 2025-01-31 16:58 [facility] 10.5 fl (missing) CHLORIDE 2025-01-31 16:58 [facility] 100 mmol/l As of October 2022 testing method has changed, this may include reference ranges. HGB - HEMOGLOBIN 2025-01-31 16:58 [facility] 13.3 g/dl (missing) SODIUM 2025-01-31 16:58 [facility] 134 mmol/l (missing) RED CELL DISTRIBUTION WIDTH 2025-01-31 16:58 [facility] 14.8 % (missing) GLUCOSE 2025-01-31 16:58 [facility] 149 mg/dl As of October 2022 testing method has changed, this may include reference ranges. AST ASPARTATE AMINOTRANSFERASE 2025-01-31 16:58 [facility] 15 iu/l As of October 2022 testing method has changed, this may include reference ranges. ALT ALANINE AMINOTRANSFERASE 2025-01-31 16:58 [facility] 15 iu/l As of October 2022 testing method has changed, this may include reference ranges. BNP - B-NATRIURETIC PEPTIDE 2025-01-31 16:58 [facility] 160 pg/ml (missing) GLOBULIN 2025-01-31 16:58 [facility] 2.5 g/dl (missing) BUN - BLOOD UREA NITROGEN 2025-01-31 16:58 [facility] 20 mg/dl As of October 2022 testing method has changed, this may include reference ranges. PLT - PLATELET COUNT 2025-01-31 16:58 [facility] 205 10 3/ul (missing) CARBON DIOXIDE - CO2 2025-01-31 16:58 [facility] 29 mmol/l As of October 2022 testing method has changed, this may include reference ranges. NEUTROPHILS # (AUTO) 2025-01-31 16:58 [facility] 3.7 10 3/ul (missing) ALBUMIN 2025-01-31 16:58 [facility] 3.7 g/dl As of October 2022 testing method has changed, this may include reference ranges. MEAN CORPUSCULAR HEMOGLOBIN 2025-01-31 16:58 [facility] 30.2 pg (missing) MEAN CORPUSCULAR HGB CONC 2025-01-31 16:58 [facility] 31.9 g/dl (missing) POTASSIUM 2025-01-31 16:58 [facility] 4.4 mmol/l As of October 2022 testing method has changed, this may include reference ranges. RED BLOOD COUNT 2025-01-31 16:58 [facility] 4.41 10 6/ul (missing) HCT - HEMATOCRIT 2025-01-31 16:58 [facility] 41.7 % (missing) ANION GAP 2025-01-31 16:58 [facility] 5.0 (missing) (missing) TOTAL PROTEIN 2025-01-31 16:58 [facility] 6.2 g/dl As of October 2022 testing method has changed, this may include reference ranges. ALKALINE PHOSPHATASE 2025-01-31 16:58 [facility] 60 iu/l As of October 2022 testing method has changed, this may include reference ranges. WHITE BLOOD COUNT 2025-01-31 16:58 [facility] 7.2 x10 3/ul (missing) GFR - MDRD 2025-01-31 16:58 [facility] 80 (missing) The IDMS-traceable MDRD Study Equation has been validated [...] caring for patients older than 70. References: http://www.nkdep. nih.gov/lab-evalu ation/gfr/creatin ine-stand ardization, last updated June 2011. CALCIUM 2025-01-31 16:58 [facility] 9.6 mg/dl As of October 2022 testing method has changed, this may include reference ranges. MEAN CORPUSCULAR VOLUME 2025-01-31 16:58 [facility] 94.6 fl (missing) IONIZED CALCIUM IF INDICATED 2025-01-31 16:58 [facility] NO (missing) (missing) Result panel 111 White blood cell count 2025-02-12 14:46:07 [facility] 8 .6 X10^3/uL (missing) Result panel 112 Red blood cell count 2025-02-12 14:46:07 [facility] 4.2 5 X10^6/uL (missing) Result panel 113 Hemoglobin 2025-02-12 14:46:07 [facility] 12.9 g/d L (missing) Result panel 114 Hematocrit 2025-02-12 14:46:07 [facility] 38.9 % (missing) Result panel 115 MCV (mean corpuscular volume ) determination 2025-02-12 14:46:07 [facility] 91.5 fL (mis sing) Result panel 116 Mean corpuscular hemoglobin (MCH) determination 2025-02-12 14:46:07 [facility] 30.4 PG (missing) Result panel 117 Mean corpuscular hemoglobin concentration (MCHC) determination 2025-02-12 14:46:07 [facility] 33.3 % (mis sing) Result panel 118 Red cell distribution width determination 2025-02-12 14:46:07 [facility] [facility] 15[facility]2 % (mis sing) Result panel 119 Platelet count 2025-02-12 14:46:07 [facility] 200 X10^3/uL (missing) Result panel 120 Automated neutrophil % 2025-02-12 14:46:07 [facility] 5 0.6 % (missing) Result panel 121 Automated lymphocyte % 2025-02-12 14:46:07 [facility] 2 8.6 % (missing) Result panel 122 Automated monocyte % 2025-02-12 14:46:07 [facility] 7.9 % (missing) Result panel 123 Automated eosinophil % 2025-02-12 14:46:07 [facility] 1 1.1 % (missing) Result panel 124 Automated basophil % 2025-02-12 14:46:07 [facility] 1.8 % (missing) Result panel 125 Absolute [facility]25-02-12 [facility] Result panel 126 Absolute lymphocyte count 2025-02-12 14:46:07 [facility] l 2500 /uL (missing) Result panel 127 Automated blood monocyte count 2025-02-12 14:46:07 [facility] 700 /uL (missing) Result panel 128 Automated eosinophil count 2025-02-12 14:[facility] Result panel 129 Automated basophil count 2025-02-12 14:46:07 [facility] 200 /uL (missing) Result panel 130 Natriuretic peptide.B prohormone N-Terminal [Mass/volume] in Serum or Plasma 2025-02-12 14:46:07 [facility] 523 pg/mL ([facility]) Result panel 131 Sodium [Moles/volume] in Serum or Plasma 2025-02-12 14:46:07 [facility] 133 mmol/L ([facility]) Result panel 132 Potassium [Moles/volume] in Serum or Plasma 2025-02-12 14:46:07 [facility] 4.6 mmol/L ([facility]) Result panel 133 Chloride [Moles/volume] in Serum or Plasma 2025-02-12 14:46:07 [facility] 101 mmol/L ([facility]) Result panel 134 Carbon dioxide, total [Moles/volume] in Serum or Plasma 2025-02-12 14:46:07 [facility] 25 mmol/L ([facility]) Result panel 135 Urea nitrogen [Mass/volume] in Serum or Plasma 2025-02-12 14:46:07 [facility] 24 mg/dL ([facility]) Result panel 136 Creatinine [Mass/volume] in Serum or Plasma 2025-02-12 14:46:07 [facility] 1.01 mg/dL ([facility]) Result panel 137 Glomerular filtration rate (GFR) estimation 2025-02-12 14:46:07 [facility] > 60 mL/min (missing) (missing) Result panel 138 BUN/creatinine ratio 2025-02-12 14:46:07 [facility] 23. 8 (missing) (missing) Result panel 139 Glucose [Mass/volume] in Serum or Plasma 2025-02-12 14:46:07 [facility] 130 mg/dL ([facility]) Result panel 140 Calcium [Mass/volume] in Serum or Plasma 2025-02-12 14:46:07 [facility] 9.1 mg/dL ([facility]) Result panel 141 Magnesium [Mass/volume] in Serum or Plasma 2025-02-12 14:46:07 [facility] 1.6 [facility] Result panel 142 Bilirubin.total [Mass/volume ] in Serum or Plasma 2025-02-12 14:46:07 [facility] 0.6 mg/dL (missing) Result panel 143 Aspartate aminotransferase [Enzymatic activity/volume] in Serum or Plasma 2025-02-12 14:46:07 [facility] 32 IU/L [facility] Result panel 144 Alanine aminotransferase [Enzymatic activity/volume] in Serum or Plasma 2025-02-12 14:46:07 [facility] 22 IU/L [facility] Result panel 145 Alkaline phosphatase [Enzyma tic activity/volume] in Serum or Plasma 2025-02-12 14:46:07 [facility] 66 U/L (miss ing) Result panel 146 Protein total ser/plas 2025-02-12 14:46:07 [facility] 6 .8 g/dL (missing) Result panel 147 Albumin [Mass/volume] in Ser um or Plasma 2025-02-12 14:46:07 [facility] 3.9 g/dL (miss ing) Result panel 148 Globulin [Mass/volume] in Serum by calculation 2025-02-12 14:46:07 [facility] 2.9 g/dL (missing) Result panel 149 Albumin/Globulin [Mass Ratio] in Serum or Plasma 2025-02-12 14:46:07 [facility] 1.3 (miss ing) (missing) Result panel 150 Lipase [Enzymatic activity/volume] in Serum or Plasma 2025-02-12 14:46:07 [facility] 43 U/L (miss ing) Result panel 151 Serum or plasma creatine kinase MB measurement (mass/volume) 2025-02-12 14:46:07 [facility] 3.3 ng/mL (mis sing) Result panel 152 Influenza virus A RNA [Presence] in Upper respiratory specimen by NOLVIA with probe dete 2025-02-12 14:46:07 [facility] Flu a negative (missing) (missing) Result panel 153 Influenza virus B RNA [Presence] in Upper respiratory specimen by NOLVIA with probe dete 2025-02-12 14:46:07 [facility] Flu b negative (missing) (missing) Result panel 154 Respiratory syncytial virus RNA [Presence] in Nasopharynx by NOLVIA with probe detection 2025-02-12 14:46:07 [facility] Negative (missing) (missing) Result panel 155 White blood cell count 2025-02-12 14:46:07 [facility] 8 .6 X10^3/uL (missing) Result panel 156 Red blood cell count 2025-02-12 14:46:07 [facility] 4.2 5 X10^6/uL (missing) Result panel 157 Hemoglobin 2025-02-12 14:46:07 [facility] 12.9 g/d L (missing) Result panel 158 Hematocrit 2025-02-12 14:46:07 [facility] 38.9 % (missing) Result panel 159 MCV (mean corpuscular volume ) determination 2025-02-12 14:46:07 [facility] 91.5 fL (mis sing) Result panel 160 Mean corpuscular hemoglobin (MCH) determination 2025-02-12 14:46:07 [facility] 30.4 PG (missing) Result panel 161 Mean corpuscular hemoglobin concentration (MCHC) determination 2025-02-12 14:46:07 [facility] 33.3 % (mis sing) Result panel 162 Red cell distribution width determination 2025-02-12 14:46:07 [facility] 15.2 % (mis sing) Result panel 163 Platelet count 2025-02-12 14:46:07 [facility] 200 X10^3/uL (missing) Result panel 164 Automated neutrophil % 2025-02-12 14:46:07 [facility] 5 0.6 % (missing) Result panel 165 Automated lymphocyte % 2025-02-12 14:46:07 [facility] 2 8.6 % (missing) Result panel 166 Automated monocyte % 2025-02-12 14:46:07 [facility] 7.9 % (missing) Result panel 167 Automated eosinophil % 2025-02-12 14:46:07 [facility] 1 1.1 % (missing) Result panel 168 Automated basophil % 2025-02-12 14:46:07 [facility] 1.8 % (missing) Result panel 169 Absolute neutrophil count 2025-02-12 14:46:07 [facility] 4300 /uL (missing) Result panel 170 Absolute lymphocyte count 2025-02-12 14:46:07 [facility] 2500 /uL (missing) Result panel 171 Automated blood monocyte count 2025-02-12 14:46:07 [facility] 700 /[facility]L (missing) Result panel 172 Automated eosinophil count 2025-02-12 14:46:07 [facility] 1000 /uL (missing) Result panel 173 Automated basophil count 2025-02-12 14:46:07 [facility] 200 /uL (missing) Result panel 174 Natriuretic peptide.B prohormone N-Terminal [Mass/volume] in Serum or Plasma 2025-02-12 14:46:07 [facility] 523 pg/mL ([facility]) Result panel 175 Sodium [Moles/volume] in Serum or Plasma 2025-02-12 14:46:07 [facility] 133 mmol/L ([facility]) Result panel 176 Potassium [Moles/volume] in Serum or Plasma 2025-02-12 14:46:07 [facility] 4.6 mmol/L ([facility]) Result panel 177 Chloride [Moles/volume] in Serum or Plasma 2025-02-12 14:46:07 [facility] 101 mmol/L ([facility]) Result panel 178 Carbon dioxide, total [Moles/volume] in Serum or Plasma 2025-02-12 14:46:07 [facility] 25 mmol/L ([facility]) Result panel 179 Urea nitrogen [Mass/volume] in Serum or Plasma 2025-02-12 14:46:07 [facility] 24 mg/dL ([facility]) Result panel 180 Creatinine [Mass/volume] in Serum or Plasma 2025-02-12 14:46:07 [facility] 1.01 mg/dL ([facility]) Result panel 181 Glomerular filtration rate (GFR) estimation 2025-02-12 14:46:07 [facility] > 60 mL/min (missing) (missing) Result panel 182 BUN/creatinine ratio 2025-02-12 14:46:07 [facility] 23. 8 (missing) (missing) Result panel 183 Glucose [Mass/volume] in Serum or Plasma 2025-02-12 14:46:07 [facility] 130 mg/dL ([facility]) Result panel 184 Calcium [Mass/volume] in Serum or Plasma 2025-02-12 14:46:07 [facility] 9.1 mg/dL ([facility]) Result panel 185 Magnesium [Mass/volume] in Serum or Plasma 2025-02-12 14:46:07 [facility] 1.6 mg/dL ([facility]) Result panel 186 Bilirubin.total [Mass/volume ] in Serum or Plasma 2025-02-12 14:46:07 [facility] 0.6 mg/dL (missing) Result panel 187 Aspartate aminotransferase [Enzymatic activity/volume] in Serum or Plasma 2025-02-12 14:46:07 [facility] 32 IU/L ([facility]) Result panel 188 Alanine aminotransferase [Enzymatic activity/volume] in Serum or Plasma 2025-02-12 14:46:07 [facility] 22 IU/L ([facility]) Result panel 189 Alkaline phosphatase [Enzyma tic activity/volume] in Serum or Plasma 2025-02-12 14:46:07 [facility] 66 U/L ([facility]) Result panel 190 Protein total ser/plas 2025-02-12 14:46:07 [facility] 6 .8 g/dL (missing) Result panel 191 Albumin [Mass/volume] in Ser um or Plasma 2025-02-12 14:46:07 [facility] 3.9 g/dL ([facility]) Result panel 192 Globulin [Mass/volume] in Serum by calculation 2025-02-12 14:46:07 [facility] 2.9 g/dL (missing) Result panel 193 Albumin/Globulin [Mass Ratio] in Serum or Plasma 2025-02-12 14:46:07 [facility] 1.3 ([facility]) (missing) Result panel 194 Lipase [Enzymatic activity/volume] in Serum or Plasma 2025-02-12 14:46:07 [facility] 43 U/L ([facility]) Result panel 195 Influenza virus A RNA [Presence] in Upper respiratory specimen by NOLVIA with probe dete 2025-02-12 14:46:07 [facility] Flu a negative (missing) (missing) Result panel 196 Influenza virus B RNA [Presence] in Upper respiratory specimen by NOLVIA with probe dete 2025-02-12 14:46:07 [facility] Flu b negative (missing) (missing) Result panel 197 Respiratory syncytial virus RNA [Presence] in Nasopharynx by NOLVIA with probe detection 2025-02-12 14:46:07 [facility] Negative (missing) (missing) Result panel 198 Estimated Glomerular Filt Rate 2025-02-12 15:12 [facility] > 60 ml/min Reported eGFR is based the CKD-EPI 202 equation that does not use a race coefficient. An eGFR below 60 mL/min/1.73m2 suggests that some kidney damage has occurred, and indicative of chronic kidney disease if persisting greater than 3 months. An eGFR less than 15 is indicative of kidney failure. Bilirubin Total 2025-02-12 15:12 [email or web address] 0.6 mg/dl (missing) Creatinine 2025-02-12 15:12 [email or web address] 1.01 mg/dl (missing) Albumin Globulin Ratio 2025-02-12 15:12 [email or web address] 1.3 (missing) (missing) Magnesium 2025-02-12 15:12 [facility] 1.6 mg/dl (missing) Basophils Percent Auto 2025-02-12 15:12 [facility] 1.8 % (missing) Eosinophils Absolute Auto 2025-02-12 15:12 [facility] 1000 /ul (missing) Chloride 2025-02-12 15:12 [facility] 101 mmol/l (missing) Eosinophils Percent Auto 2025-02-12 15:12 [facility] 11.1 % (missing) Hemoglobin 2025-02-12 15:12 [facility] 12.9 g/dl (missing) Glucose 2025-02-12 15:12 [facility] 130 mg/dl (missing) Sodium 2025-02-12 15:12 [facility] 133 mmol/l (missing) Red Cell Distribution Width 2025-02-12 15:12 [facility] 15.2 % (missing) Globulin 2025-02-12 15:12 [facility] 2.9 g/dl (missing) Basophils Absolute Auto 2025-02-12 15:12 [facility] 200 /ul (missing) Platelet Count 2025-02-12 15:12 [email or web address] 200 x10 3/ul (missing) Alanine Aminotransferase 2025-02-12 15:12 [facility] 22 iu/l (missing) BUN Creatinine Ratio 2025-02-12 15:12 [facility] 23.8 (missing) (missing) Blood Urea Nitrogen 2025-02-12 15:12 [facility] 24 mg/dl (missing) Carbon Dioxide 2025-02-12 15:12 [facility] 25 mmol/l (missing) Lymphocytes Absolute Auto 2025-02-12 15:12 [facility] 2500 /ul (missing) Lymphocytes Percent Auto 2025-02-12 15:12 [facility] 28.6 % (missing) Albumin 2025-02-12 15:12 [facility] 3.9 g/dl (missing) Mean Corpuscular Hemoglobin 2025-02-12 15:12 [facility] 30.4 pg (missing) Aspartate Aminotransferase 2025-02-12 15:12 [facility] 32 iu/l (missing) Mean Corpuscular HGB Conc 2025-02-12 15:12 [facility] 33.3 % (missing) Hematocrit 2025-02-12 15:12 [facility] 38.9 % (missing) Red Blood Cell Count 2025-02-12 15:12 [facility] 4.25 x10 6/ul (missing) Potassium 2025-02-12 15:12 [facility] 4.6 mmol/l (missing) Lipase 2025-02-12 15:12 [facility] 43 u/l (missing) Neutrophils Absolute Auto 2025-02-12 15:12 [facility] 4300 /ul (missing) Neutrophils Percent Auto 2025-02-12 15:12 [facility] 50.6 % (missing) Total Protein 2025-02-12 15:12 [facility] 6.8 g/dl (missing) Alkaline Phosphatase 2025-02-12 15:12 [facility] 66 u/l (missing) Monocytes Percent Auto 2025-02-12 15:12 [facility] 7.9 % (missing) Monocytes Absolute Auto 2025-02-12 15:12 [facility] 700 /ul (missing) White Blood Cell Count 2025-02-12 15:12 [facility] 8.6 x10 3/ul (missing) Calcium 2025-02-12 15:12 [facility] 9.1 mg/dl (missing) Mean Corpuscular Volume 2025-02-12 15:12 [facility] 91.5 fl (missing) Result panel 199 Estimated Glomerular Filt Rate 2025-02-12 15:21 [facility] > 60 ml/min Reported eGFR is based the CKD-EPI 2020 equation that does not use a race coefficient. An eGFR below 60 mL/min/1.73m2 suggests that some kidney damage has occurred, and indicative of chronic kidney disease if persisting greater than 3 months. An eGFR less than 15 is indicative of kidney failure. Troponin I 2025-02-12 15:21 [facility] 0.014 ng/ml Ortho Troponin-I Recommended Upper Reference Range & Cutoff The 99th Percentile URL: 0.034 ng/mL AMI Diagnostic Cutoff: 0.120 ng/mL Bilirubin Total 2025-02-12 15:21 [email or web address] 0.6 mg/dl (missing) Creatinine 2025-02-12 15:21 [facility] 1.01 mg/dl (missing) Albumin Globulin Ratio 2025-02-12 15:21 [facility] 1.3 (missing) (missing) Magnesium 2025-02-12 15:21 [facility] 1.6 mg/dl (missing) Chloride 2025-02-12 15:21 [facility] 101 mmol/l (missing) Glucose 2025-02-12 15:21 [facility] 130 mg/dl (missing) Sodium 2025-02-12 15:21 [email or web address] 133 mmol/l (missing) Globulin 2025-02-12 15:21 [facility] 2.9 g/dl (missing) Alanine Aminotransferase 2025-02-12 15:21 [facility] 22 iu/l (missing) BUN Creatinine Ratio 2025-02-12 15:21 [facility] 23.8 (missing) (missing) Blood Urea Nitrogen 2025-02-12 15:21 [facility] 24 mg/dl (missing) Carbon Dioxide 2025-02-12 15:21 [email or web address] 25 mmol/l (missing) Albumin 2025-02-12 15:21 [email or web address] 3.9 g/dl (missing) Aspartate Aminotransferase 2025-02-12 15:21 [facility] 32 iu/l (missing) Potassium 2025-02-12 15:21 [email or web address] 4.6 mmol/l (missing) Lipase 2025-02-12 15:21 [email or web address] 43 u/l (missing) NT-proBNP (BNP-Adult 18+) 2025-02-12 15:21 [facility] 523 pg/ml The following cut-points have been suggested for the use [...] or exclude HF. Total Protein 2025-02-12 15:21 [facility] 6.8 g/dl (missing) Alkaline Phosphatase 2025-02-12 15:21 [facility] 66 u/l (missing) Calcium 2025-02-12 15:21 [facility] 9.1 mg/dl (missing) Result panel 200 Influenza A - CEPID 2025-02-12 15:39 [facility] Flu A NEGATIVE (missing) (missing) Influenza B - CEPID 2025-02-12 15:39 [facility] Flu B NEGATIVE (missing) (missing) Respiratory Syncytial Virus 2025-02-12 15:39 [facility] Negative (missing) (missing) COVID- CEPID 4-PLEX PCR 2025-02-12 15:39 [facility] Negative (missing) The Xpert Xpress SARS-CoV-2 test is a rapid, real-time RT-PCR [...] Drug Administrations Emergency Use Authorization. Result panel 201 X-ray report 2025-02-12 15:55 [facility] (missing) (mis sing) (missing) Result panel 202 X-ray report 2025-02-12 15:55 [facility] (missing) (mis sing) (missing) Result panel 203 Troponin I.cardiac [Mass/volume] in Serum or Plasma 2025-02-12 16:34:07 [facility] < 0.012 ng/mL (missing) (missing) Result panel 204 Troponin I.cardiac [Mass/volume] in Serum or Plasma 2025-02-12 16:34:07 [facility] < 0.012 ng/mL (missing) (missing) Result panel 205 Troponin I 2025-02-12 17:04 [facility] < 0.012 ng/ml Ortho Troponin-I Recommended Upper Reference Range & Cutoff The 99th Percentile URL: 0.034 ng/mL AMI Diagnostic Cutoff: 0.120 ng/mL Result panel 206 Emergency department note 2025-02-12 18:28 [facility] (missing) (missing) (missing ) Result panel 207 POC Glucose 2025-02-12 21:38 [facility] 300 mg/dl (missing) Result panel 208 Creatine Kinase (CK), MB 2025-02-13 00:00 [facility] 3.3 ng/ml (missing) Result panel 209 Echocardiography report 2025-02-13 07:28 [facility] (mi ssing) (missing) (missing) Result panel 210 POC Glucose 2025-02-13 08:33 [facility] 169 mg/dl Delta: 300 on 02/12/25 Result panel 211 POC Glucose 2025-02-13 12:08 [facility] 177 mg/dl (missing) Result panel 212 [facility] Creatine Kinase MB 2025-02-13 13:36 [facility] 3.3 ng/ml Performed at: - [facility] [address] [id number] [employer]: Sukh Lainez MD, Phone: [phone] Result panel 213 SARS-CoV-2 -RESP PCR PANEL 2025-03-31 04:10 [facility] NOT DETECTED (missing) A negative test result for this test indicates that SARS-CoV-2 RNA was not present in the specimen above the limit of detection. Testing performed on the AmberPointFire RP2.1 Panel, a multiplexed nucleic acid repiratory [...] SARS-CoV-2 virus. INFLUENZA A- RESP PCR PANEL 2025-03-31 04:10 [facility] NOT DETECTED (missing) Influenza A including subtypes H1, H3, and H1-2009 not detected by the BioFire RP2.1 Panel, a multiplexed nucleic acid test intended for the simultaneous qualitative detection and differentiation of nucleic acids from multiple viral and bacterial respiratory organisms. B. PARAPERTUSSIS- RESP PCR ALBA 2025-03-31 04:10 [facility] NOT DETECTED (missing) Negative results for this organism do not preclude infection with this organism and may require additional laboratory testing (e.g., bacterial and viral culture, immunofluorescence, and radiography) when evaluating a patient with possible respiratory tract infection. B. PERTUSSIS- RESP PCR PANEL 2025-03-31 04:10 [facility] NOT DETECTED (missing) Negative results for this organism do not preclude infection with this organism and may require additional laboratory testing (e.g., bacterial and viral culture, immunofluorescence, and radiography) when evaluating a patient with possible respiratory tract infection. C. PNEUMONIAE- RESP PCR PANEL 2025-03-31 04:10 [facility] NOT DETECTED (missing) Negative results for this organism do not preclude infection with this organism and may require additional laboratory testing (e.g., bacterial and viral culture, immunofluorescence, and radiography) when evaluating a patient with possible respiratory tract infection. M. PNEUMONIAE- RESP PCR PANEL 2025-03-31 04:10 [facility] NOT DETECTED (missing) Negative results for this organism do not preclude infection with this organism and may require additional laboratory testing (e.g., bacterial and viral culture, immunofluorescence, and radiography) when evaluating a patient with possible respiratory tract infection. ADENOVIRUS - RESP PCR PANEL 2025-03-31 04:10 [facility] NOT DETECTED (missing) Negative results in the setting ofa respiratory illness may be due to infection with pathogens not detected by this test, or lower respiratory tract infection that may not be detected by nasopharyngeal specimen. CORONAVIRUS 229E-RESP PCR 2025-03-31 04:10 [facility] NOT DETECTED (missing) Negative results in the setting ofa respiratory illness may be due to infection with pathogens not detected by this test, or lower respiratory tract infection that may not be detected by nasopharyngeal specimen. CORONAVIRUS HKU1-RESP PCR 2025-03-31 04:10 [facility] NOT DETECTED (missing) Negative results in the setting ofa respiratory illness may be due to infection with pathogens not detected by this test, or lower respiratory tract infection that may not be detected by nasopharyngeal specimen. CORONAVIRUS [id number] PCR 2025-03-31 04:10 [facility] NOT DETECTED (missing) Negative results in the setting ofa respiratory illness may be due to infection with pathogens not detected by this test, or lower respiratory tract infection that may not be detected by nasopharyngeal specimen. CORONAVIRUS [id number] PCR 2025-03-31 04:10 [facility] NOT DETECTED (missing) Negative results in the setting ofa respiratory illness may be due to infection with pathogens not detected by this test, or lower respiratory tract infection that may not be detected by nasopharyngeal specimen. HUMAN METAPNEUMOVIRUS 2025-03-31 04:10 [facility] NOT DETECTED (missing) Negative results in the setting ofa respiratory illness may be due to infection with pathogens not detected by this test, or lower respiratory tract infection that may not be detected by nasopharyngeal specimen. INFLUENZA B - RESP PCR PANEL 2025-03-31 04:10 [facility] NOT DETECTED (missing) Negative results in the setting ofa respiratory illness may be due to infection with pathogens not detected by this test, or lower respiratory tract infection that may not be detected by nasopharyngeal specimen. PARAINFLUENZA VIRUS 1 2025-03-31 04:10 [facility] NOT DETECTED (missing) Negative results in the setting ofa respiratory illness may be due to infection with pathogens not detected by this test, or lower respiratory tract infection that may not be detected by nasopharyngeal specimen. PARAINFLUENZA VIRUS 2 2025-03-31 04:10 [facility] NOT DETECTED (missing) Negative results in the setting ofa respiratory illness may be due to infection with pathogens not detected by this test, or lower respiratory tract infection that may not be detected by nasopharyngeal specimen. PARAINFLUENZA VIRUS 3 2025-03-31 04:10 [facility] NOT DETECTED (missing) Negative results in the setting ofa respiratory illness may be due to infection with pathogens not detected by this test, or lower respiratory tract infection that may not be detected by nasopharyngeal specimen. PARAINFLUENZA VIRUS 4 2025-03-31 04:10 [facility] NOT DETECTED (missing) Negative results in the setting ofa respiratory illness may be due to infection with pathogens not detected by this test, or lower respiratory tract infection that may not be detected by nasopharyngeal specimen. RHINOVIRUS/ENTEROVI PETRA 2025-03-31 04:10 [facility] NOT DETECTED (missing) Negative results in the setting ofa respiratory illness may be due to infection with pathogens not detected by this test, or lower respiratory tract infection that may not be detected by nasopharyngeal specimen. RSV- RESP PCR PANEL 2025-03-31 04:10 [facility] NOT DETECTED (missing) Negative results in the setting ofa respiratory illness may be due to infection with pathogens not detected by this test, or lower respiratory tract infection that may not be detected by nasopharyngeal specimen. Result panel 214 BNP - B-NATRIURETIC PEPTIDE 2025-03-31 04:25 [facility] 96 pg/ml (missing) Result panel 215 NUCLEATED RED BLOOD CELLS AUTO 2025-03-31 04:26 [facility] 0.0 /100wbc (missing) NRBC ABSOLUTE COUNT (AUTO) 2025-03-31 04:26 [facility] 0.00 x10 3/ul (missing) BASOPHILS # (AUTO) 2025-03-31 04:26 [facility] 0.1 10 3/ul (missing) MONOCYTES # (AUTO) 2025-03-31 04:26 [facility] 0.9 10 3/ul (missing) EOSINOPHILS # (AUTO) 2025-03-31 04:26 [facility] 1.0 10 3/ul (missing) LYMPHOCYTES # (AUTO) 2025-03-31 04:26 [facility] 1.9 10 3/ul (missing) MEAN PLATELET VOLUME 2025-03-31 04: [facility] 11.3 fl (missing) HGB - HEMOGLOBIN 2025-03-31 04: [facility] 12.7 g/dl (missing) RED CELL DISTRIBUTION WIDTH 2025-03-31 04: [facility] 15.9 % (missing) PLT - PLATELET COUNT 2025-03-31 04:26 [email or web address] 184 10 3/ul (missing) VBG HCO3 2025-03-31 04:26 [facility] 28.3 mmol/l (missing) VBG TOTAL CO2 2025-03-31 04: [facility] 29.5 mmol/l (missing) MEAN CORPUSCULAR HEMOGLOBIN 2025-03-31 04: [facility] 29.6 pg (missing) NEUTROPHILS # (AUTO) 2025-03-31 04:26 [facility] 3.4 10 3/ul (missing) MEAN CORPUSCULAR HGB CONC 2025-03-31 04:26 [facility] 30.7 g/dl (missing) VBG PCO2 2025-03-31 04: [facility] 39.0 mmhg (missing) RED BLOOD COUNT 2025-03-31 04: [facility] 4.29 10 6/ul (missing) VBG BASE EXCESS 2025-03-31 04: [employer] 4.4 mmol/l (missing) HCT - HEMATOCRIT 2025-03-31 04: [facility] 41.4 % (missing) WHITE BLOOD COUNT 2025-03-31 04:26 [facility] 7.3 x10 3/ul (missing) VBG PH 2025-03-31 04:26 [facility] 7.465 (missing) (missing) VBG PO2 2025-03-31 04:26 [facility] 76.2 mmhg (missing) VBG OXYGEN SATURATION 2025-03-31 04:26 [facility] 95.0 % (missing) MEAN CORPUSCULAR VOLUME 2025-03-31 04:26 [facility] 96.5 fl (missing) SLIDE REVIEW? 2025-03-31 04:26 [facility] Indicated (missing) (missing) PLATELET ESTIMATE, MANUAL 2025-03-31 04:26 [facility] NORMAL (130-450,000) (missing) (missing) PLATELET MORPHOLOGY 2025-03-31 04:26 [facility] NORMAL PABLITO (missing) (missing) RBC MORPHOLOGY (MULTIPLE) 2025-03-31 04:26 [facility] NORMAL APPEARANCE (missing) (missing) WBC MORPHOLOGY (MULTIPLE) 2025-03-31 04:26 [facility] NORMAL APPEARANCE (missing) (missing) Result panel 216 LIPASE 2025-03-31 04:49 [facility] < 10 u/l As of October 2022 testing method has changed, this may include reference ranges. BILIRUBIN,TOTAL 2025-03-31 04:49 [facility] 0.5 mg /dl As of October 2022 testing method has changed, this may include reference ranges. CREATININE 2025-03-31 04:49 [facility] 1.1 mg/dl As of October 2022 testing method has changed, this may include reference ranges. ALBUMIN/GLOBULIN RATIO 2025-03-31 04:49 [facility] 1.4 (missing) (missing) CHLORIDE 2025-03-31 04:49 [facility] 104 mmol/l As of October 2022 testing method has changed, this may include reference ranges. ALT ALANINE AMINOTRANSFERASE 2025-03-31 04:49 [facility] 13 iu/l As of October 2022 testing method has changed, this may include reference ranges. GLUCOSE 2025-03-31 04:49 [facility] 139 mg/dl As of October 2022 testing method has changed, this may include reference ranges. SODIUM 2025-03-31 04:49 [facility] 139 mmol/l (missing) AST ASPARTATE AMINOTRANSFERASE 2025-03-31 04:49 [facility] 14 iu/l Sligh tly Hemolyzed: Results may be affected. As of October 2022 testing method has changed, this may include reference ranges. GLOBULIN 2025-03-31 04:49 [facility] 2.4 g/dl (missing) BUN - BLOOD UREA NITROGEN 2025-03-31 04:49 [facility] 21 mg/dl As of Oct testing method has changed, this may include reference ranges. CARBON DIOXIDE - CO2 2025-03-31 04:49 [facility] 29 mmol/l As of October 2022 testing method has changed, this may include reference ranges. ALBUMIN 2025-03-31 04:49 [facility] 3.3 g/dl As of October 2022 testing method has changed, this may include reference ranges. POTASSIUM 2025-03-31 04:49 [facility] 3.7 mmol/l Slightly Hemolyzed: Results may be affected. As of October 2022 testing method has changed, this may include reference ranges. TOTAL PROTEIN 2025-03-31 04:49 [facility] 5.7 g/dl As of October 2022 testing method has changed, this may include reference ranges. ALKALINE PHOSPHATASE 2025-03-31 04:49 [facility] 59 iu/l As of October 2022 testing method has changed, this may include reference ranges. ANION GAP 2025-03-31 04:49 [facility] 6.0 (missing ) (missing) GFR - MDRD 2025-03-31 04:49 [facility] 63 (missin g) The IDMS-traceable MDRD Study Equation has been validated [...] caring for patients older than 70. References: http://www.nkdep. nih.gov/lab-evalu ation/gfr/creatin ine-stand ardization, last updated June 2011. CALCIUM 2025-03-31 04:49 [facility] 9.5 mg/dl As of October 2022 testing method has changed, this may include reference ranges. Result panel 217 PROCALCITONIN 2025-03-31 09:17 [facility] 0.09 ng/ml PCT Concentration (n g/mL) Children >72hrs old and Adults Interpretation <0.5 Low risk of severe sepsis and/or septic shock >2.0 High risk of severe sepsis and/or septic shock Concentrations under 0.5 ng/mL do not exclude local infections or systemic infections in their initial stages (e.g. under six hours from onset of illness). PCT concentrations between 0.5 and 2.0 ng/mL should be interpreted with consideration of the patient's history. In this range, it is recommended to retest PCT within 6 to 24hours. CREATININE 2025-03-31 09:17 [facility] 1.1 mg/dl As of October 2022 test ing method has changed, this may include reference ranges. CHLORIDE 2025-03-31 09:17 [facility] 105 mmol/l As of October 2022 test ing method has changed, this may include reference ranges. GLUCOSE 2025-03-31 09:17 [facility] 129 mg/dl As of October 2022 test ing method has changed, this may include reference ranges. SODIUM 2025-03-31 09:17 [facility] 141 mmol/l (missing) BNP - B-NATRIURETIC PEPTIDE 2025-03-31 09:17 [facility] 152 pg/ml (missing) MAGNESIUM 2025-03-31 09:17 [facility] 2.0 mg/dl As of October 2022 test ing method has changed, this may include reference ranges. BUN - BLOOD UREA NITROGEN 2025-03-31 09:17 [facility] 20 mg/dl As of October 2022 test ing method has changed, this may include reference ranges. CARBON DIOXIDE - CO2 2025-03-31 09:17 [facility] 29 mmol/l As of October 2022 test ing method has changed, this may include reference ranges. VBG HCO3 2025-03-31 09:17 [facility] 29.4 mmol/l (missing) POTASSIUM 2025-03-31 09:17 [facility] 3.6 mmol/l As of October 2022 test ing method has changed, this may include reference ranges. VBG TOTAL CO2 2025-03-31 09:17 [facility] 30.9 mmol/l (missing) VBG BASE EXCESS 2025-03-31 09:17 [facility] 4.0 mmol/l (missing) VBG PCO2 2025-03-31 09:17 [facility] 49.6 mmhg (missing) VBG PO2 2025-03-31 09:17 [facility] 61.6 mmhg (missing) GFR - MDRD 2025-03-31 09: [facility] 63 (missing ) The IDMS-traceable MDRD Study Equation has been validated [...] caring for patients older than 70. References: http://www.nkdep.nih.gov/lab- evaluation/gfr/creatinine-sta nd ardization, last updated June 2011. ANION GAP 2025-03-31 09:17 [facility] 7.0 (missing ) (missing) VBG PH 2025-03-31 09:17 [facility] 7.376 (missing ) (missing) VBG OXYGEN SATURATION 2025-03-31 09:17 [facility] 89.0 % (missing) CALCIUM 2025-03-31 09: [facility] 9.7 mg/dl As of October 2022 test ing method has changed, this may include reference ranges. Result panel 218 CREATININE 2025-04-01 08:24 [facility] 1.1 mg/dl As of October 2022 testing method has changed, this may include reference ranges. MEAN PLATELET VOLUME 2025-04-01 08:24 [facility] 10.9 fl (missing) CHLORIDE 2025-04-01 08:24 [facility] 102 mmol/l As of October 2022 testing method has changed, this may include reference ranges. HGB - HEMOGLOBIN 2025-04-01 08:24 [facility] 12.1 g /dl (missing) SODIUM 2025-04-01 08:24 [facility] [employer] 139 mmol/l (missing) RED CELL DISTRIBUTION WIDTH 2025-04-01 08:24 [facility] 15.2 % (mi ssing) PLT - PLATELET COUNT 2025-04-01 08:24 [facility] 173 10 3/ul (missing) BUN - BLOOD UREA NITROGEN 2025-04-01 08:24 [facility] 24 mg/dl As of Oct testing method has changed, this may include reference ranges. GLUCOSE 2025-04-01 08:24 [facility] 243 mg/dl As of October 2022 testing method has changed, this may include reference ranges. MEAN CORPUSCULAR HEMOGLOBIN 2025-04-01 08:24 [facility] 29.5 pg (missing) POTASSIUM 2025-04-01 08:24 [facility] 3.5 mmol/l As of October 2022 testing method has changed, this may include reference ranges. CARBON DIOXIDE - CO2 2025-04-01 08:24 [facility] 30 mmol/l As of October 2022 testing method has changed, this may include reference ranges. MEAN CORPUSCULAR HGB CONC 2025-04-01 08:24 [facility] 30.0 g/dl (missing) RED BLOOD COUNT 2025-04-01 08:24 [facility] 4.10 10 6/ul (missing) HCT - HEMATOCRIT 2025-04-01 08:24 [facility] 40.3 % (missing) WHITE BLOOD COUNT 2025-04-01 08:24 [facility] 5.9 x10 3/ul (missing) GFR - MDRD 2025-04-01 08:24 [facility] 63 (missin g) The IDMS-traceable MDRD Study Equation has been validated [...] caring for patients older than 70. References: http://www.nkdep.n ih.gov/lab-evaluat ion/gfr/creatinine -stand ardization, last updated June 2011. ANION GAP 2025-04-01 08:24 [facility] 7.0 (missing ) (missing) CALCIUM 2025-04-01 08:24 [facility] 9.1 mg/dl As of October 2022 testing method has changed, this may include reference ranges. MEAN CORPUSCULAR VOLUME 2025-04-01 08:24 [facility] [employer] 98.3 fl (missing) Result panel 219 CREATININE 2025-04-02 08:26 [email or web address] 1.1 mg/dl As of October 2022 testing method has changed, this may include reference ranges. MEAN PLATELET VOLUME 2025-04-02 08:26 [facility] 10.7 fl (missing) CHLORIDE 2025-04-02 08:26 [email or web address] 101 mmol/l As of October 2022 testing method has changed, this may include reference ranges. HGB - HEMOGLOBIN 2025-04-02 08:26 [facility] [employer] 12.9 g /dl (missing) SODIUM 2025-04-02 08:26 [facility] 139 mmol/l (missing) RED CELL DISTRIBUTION WIDTH 2025-04-02 08:26 [facility] 15.0 % (mi ssing) GLUCOSE 2025-04-02 08:26 [email or web address] 215 mg/dl As of October 2022 testing method has changed, this may include reference ranges. PLT - PLATELET COUNT 2025-04-02 08:26 [facility] 217 10 3/ul (missing) BUN - BLOOD UREA NITROGEN 2025-04-02 08:26 [facility] 29 mg/dl As of Oct testing method has changed, this may include reference ranges. POTASSIUM 2025-04-02 08:26 [facility] 3.9 mmol/l As of October 2022 testing method has changed, this may include reference ranges. MEAN CORPUSCULAR HEMOGLOBIN 2025-04-02 08:26 [facility] 30.2 pg (missing) CARBON DIOXIDE - CO2 2025-04-02 08:26 [facility] 31 mmol/l As of October 2022 testing method has changed, this may include reference ranges. MEAN CORPUSCULAR HGB CONC 2025-04-02 08:26 [facility] 31.9 g/dl (missing) RED BLOOD COUNT 2025-04-02 08: [facility] 4.27 10 6/ul (missing) HCT - HEMATOCRIT 2025-04-02 08:26 [facility] 40.4 % (missing) GFR - MDRD 2025-04-02 08: [facility] 63 (luz mederos) The IDMS-traceable MDRD Study Equation has been validated [...] caring for patients older than 70. References: http://www.nkdep.n ih.gov/lab-evaluat ion/gfr/creatinine -stand ardization, last updated June 2011. ANION GAP 2025-04-02 08:26 [facility] 7.0 (missing ) (missing) CALCIUM 2025-04-02 08: [facility] 9.4 mg/dl As of October 2022 testing method has changed, this may include reference ranges. WHITE BLOOD COUNT 2025-04-02 08: [facility] 9.6 x10 3/ul (missing) MEAN CORPUSCULAR VOLUME 2025-04-02 08: [facility] 94.6 fl (missing) Social History date description facility 2025-02-12 00:00 Never smoked tobacco ([facility] Vital Signs date measurement value units 2025-02-12 [...]
[2025-04-23] MEDS: ALBUTEROL NEB 2.5 MG/3 ML INH STA ×2 (12:13→13:16)
[2025-04-23 12:22] LABS: HCT - HEMATOCRIT 43.1 % (42.0-52.0); HGB - HEMOGLOBIN 13.6 g/dL (14.0-18.0); MEAN PLATELET VOLUME 10.8 fL (7.4-11.4); NRBC ABSOLUTE COUNT (AUTO) 0.00 x10^3/uL; NUCLEATED RED BLOOD CELLS AUTO 0.0 /100WBC; PLT - PLATELET COUNT 184 10^3/uL (130-450); RED CELL DISTRIBUTION WIDTH 14.9 % (12.0-15.0)
--- NOTE | 2025-04-23 12:24 | XRAY Report ---
PROCEDURE: XR Chest 1V INDICATIONS: cough dyspnea TECHNIQUE: One view of the chest was acquired. COMPARISON: None. FINDINGS: Surgical changes and devices: Disrupted sternotomy ties. [place] of the right humerus head. Lungs and pleura: No pleural effusions or pneumothorax. No consolidation. Mediastinum: Mediastinal contours appear normal. Heart size is normal. Bones and chest wall: No suspicious bony lesions. Overlying soft tissues appear unremarkable. IMPRESSION: No acute cardiopulmonary process. Reviewed by: Mitch Kohler MD on 04/23/2025 11:21 AM [facility] Approved by: Mitch Kohler MD on 04/23/2025 11:21 AM [facility] Station ID: [id number]
[2025-04-23 12:37] LABS: ALT ALANINE AMINOTRANSFERASE 17.0 IU/L (10-60); AST ASPARTATE AMINOTRANSFERASE 14.0 IU/L (10-42); BUN - BLOOD UREA NITROGEN 18.0 mg/dL (6-20); CARBON DIOXIDE - CO2 30.0 mmol/L (21-32); CREATININE 1.0 mg/dL (0.6-1.3); GFR - MDRD 71.0 (>89); PHOSPHORUS 3.4 mg/dL (2.5-5.0)
[2025-04-23 12:54] LABS: VBG BASE EXCESS 7.7 mmol/L (-2 - +2); VBG PCO2 68.8 mmHg (41-51); VBG PH 7.302 (7.31-7.41); VBG PO2 34.8 mmHg (25-47); VBG TOTAL CO2 36.4 mmol/L (24-29)
[2025-04-23 13:07] LABS: B. PARAPERTUSSIS- RESP PCR PAN NOT DETECTED; B. PERTUSSIS- RESP PCR PANEL NOT DETECTED; C. PNEUMONIAE- RESP PCR PANEL NOT DETECTED; CORONAVIRUS 229E-RESP PCR NOT DETECTED; CORONAVIRUS HKU1-RESP PCR NOT DETECTED; CORONAVIRUS NL63-RESP PCR NOT DETECTED; CORONAVIRUS OC43-RESP PCR NOT DETECTED; HUMAN METAPNEUMOVIRUS NOT DETECTED; INFLUENZA A- RESP PCR PANEL NOT DETECTED; INFLUENZA B - RESP PCR PANEL NOT DETECTED; M. PNEUMONIAE- RESP PCR PANEL NOT DETECTED; PARAINFLUENZA VIRUS 1 NOT DETECTED; PARAINFLUENZA VIRUS 2 NOT DETECTED; PARAINFLUENZA VIRUS 4 NOT DETECTED; RHINOVIRUS/ENTEROVIRUS NOT DETECTED; RSV- RESP PCR PANEL NOT DETECTED; SARS-CoV-2 -RESP PCR PANEL NOT DETECTED
--- NOTE | 2025-04-23 14:13 | ADVANCE CARE PLANNING NOTE ---
Advance Care Planning Planning Encounter Date: 04/23/25 Time: 14:12 Purpose: Recurrent admission Parties in Attendance: Patient, Spouse, Daughter Decisional Capacity of the Patient: Decisional
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
[2025-04-23] MEDS ORDERED: ONDANSETRON 4 MG/2 ML VIAL IVP PRN (14:45)
[2025-04-23] MEDS ORDERED: SODIUM CHLORIDE FLUSH 0.9% 10 ML SYRINGE IVP PRN (14:45)
[2025-04-23] MEDS ORDERED: ONDANSETRON ODT 4 MG TABLET TL PRN (14:45)
[2025-04-23] MEDS ORDERED: ACETAMINOPHEN 325 MG TABLET PO PRN (14:45)
--- NOTE | 2025-04-23 15:16 | PHARMACY PROGRESS NOTE ---
Best Possible Medication History Admit Date and Time: 04/23/25 1317 Home Medications Medication Instructions Recorded Confirmed Type apixaban 5 mg tablet (Eliquis) 5 mg PO BID 11/12/22 History leflunomide 20 mg tablet (Arava) 20 mg PO DAILY 03/31/25 History metoprolol succinate 25 mg 25 mg PO DAILY 11/12/2209/18 History tablet,extended release 24 hr silodosin 8 mg capsule (Rapaflo) 8 mg PO DAILY 3 03/31/25 History trospium 60 mg capsule,extended 60 mg PO DAILY 3 04/23/25 History release 24 hr furosemide 20 mg tablet 20 mg PO DAILY 09/24/2303/28 History isosorbide mononitrate 30 mg 30 mg PO DAILY 09/24/23 1 06/24/24 History tablet,extended release 24 hr albuterol sulfate 90 mcg/actuation 2 puff inhalation Q 6H PRN 01/19/25 04/23/25 History aerosol inhaler (Ventolin HFA) shortness of breath or wheezing gabapentin 100 mg capsule 100 mg PO QPM 01/19/2503/31 History albuterol sulfate 2.5 mg/3 mL 2.5 mg inhalation Q4H VA N 03/31/25 04/23/25 History (0.083 %) solution for nebulization shortness of breat h or wheezing empagliflozin 10 mg tablet 10 mg PO DAILY 03/31/25 History (Jardiance) mirabegron 50 mg tablet,extended 50 mg PO QPM 03/31/25 03/31/25 History release 24 hr Processed by: Pharmacy Medications reviewed in ED?: No Medication History completed: Yes Patient Interview: Pt unable to participate (Patient states he does not know his medications) Secondary Source(s): Spouse/Significant other ( does not know his medications) and Insurance records (Patient likely is out of many medications for about a month based on fill history) [facility] Statement: As the person ultimately responsible for medication therapy, providers are able to order a medication from an existing home medication list in [facility] via the "Reconcile Routine" prior to Confirmation of that medication by care support representative. Such practice is discouraged except when the physician, in their clinical judgment, deems that a medical need exists for a medication without regard to previous use.
[2025-04-23] MEDS: SODIUM CHLORIDE FLUSH 0.9% 10 ML SYRINGE IVP SCH (17:22)
[2025-04-23 18:12] LABS: VBG BASE EXCESS 1.1 mmol/L (-2 - +2); VBG PCO2 55.1 mmHg (41-51); VBG PH 7.305 (7.31-7.41); VBG PO2 49.6 mmHg (25-47); VBG TOTAL CO2 29.3 mmol/L (24-29)
[2025-04-23 18:26] LABS: BUN - BLOOD UREA NITROGEN 18.0 mg/dL (6-20); CARBON DIOXIDE - CO2 29.0 mmol/L (21-32); CREATININE 1.1 mg/dL (0.6-1.3); GFR - MDRD 63.0 (>89)
[2025-04-23] MEDS: GABAPENTIN 100 MG CAPSULE PO SCH (20:01)
[2025-04-23] MEDS: APIXABAN 5 MG TABLET PO SCH (20:01)
[2025-04-23] MEDS: IPRATROPIUM/ALBUTEROL 3 ML NEB INH SCH (20:49)
[2025-04-23] MEDS: FORMOTEROL FUMARATE NEB 20 MCG/2 ML INH SCH (20:50)
[2025-04-24 04:48] LABS: HCT - HEMATOCRIT 36.9 % (42.0-52.0); HGB - HEMOGLOBIN 11.5 g/dL (14.0-18.0); MEAN PLATELET VOLUME 10.6 fL (7.4-11.4); NRBC ABSOLUTE COUNT (AUTO) 0.00 x10^3/uL; NUCLEATED RED BLOOD CELLS AUTO 0.0 /100WBC; PLT - PLATELET COUNT 168 10^3/uL (130-450); RED CELL DISTRIBUTION WIDTH 15.0 % (12.0-15.0)
[2025-04-24 05:05] LABS: BUN - BLOOD UREA NITROGEN 19.0 mg/dL (6-20); CARBON DIOXIDE - CO2 30.0 mmol/L (21-32); CREATININE 1.0 mg/dL (0.6-1.3); GFR - MDRD 71.0 (>89); PHOSPHORUS 3.1 mg/dL (2.5-5.0)
[2025-04-24] MEDS: ISOSORBIDE MONONITRATE ER 30 MG TABLET PO SCH (08:46)
[2025-04-24] MEDS: EMPAGLIFLOZIN 10 MG TABLET PO SCH (08:46)
[2025-04-24] MEDS: FUROSEMIDE 20 MG TABLET PO SCH (08:46)
[2025-04-24] MEDS: METOPROLOL SUCCINATE 25 MG TABLET PO SCH (08:46)
[2025-04-24] MEDS: SOLIFENACIN SUCCINATE 5 MG TABLET PO SCH (08:46)
[2025-04-24] MEDS: guaiFENesin 100 MG/5 ML UDC PO SCH (10:13)
--- NOTE | 2025-04-24 15:42 | PROVIDER PROGRESS NOTE ---
Subjective Prog Note Date Prog Note Date: 04/24/25 Prog Note Time: 15:35 Subjective Subjective: No acute events overnight. Patient's breathing much better this morning. He is intermittently been on 2 L of oxygen throughout the day, but his wheezing is much improved. He is not breathing with his belly anymore. He appears more comfortable. He endorses greater comfort with his breathing. Denies any cough. Denies fevers or chills, chest pain, abdominal pain, nausea or vomiting. Current Medications Current Medications Current Medications: Current Medications Generic Name Dose Route Start Last Admin Trade Name Freq PRN Reason Stop Dose Admin Acetaminophen 650 mg 04/23/25 14:45 Acetaminophen 325 Mg Tablet PO Q4HR PRN Pain 1 to 4, or Fever Albuterol/Ipratropium 3 ml 04/23/25 19:00 04/24/25 09:58 Ipratropium/Albuterol 3 Ml Neb INH 3 ml RTQID ROGELIO Administration Apixaban 5 mg 04/23/25 21:00 04/24/25 08:46 Apixaban 5 Mg Tablet PO 5 mg BID ROGELIO Administration Empagliflozin 10 mg 04/24/25 09:00 04/24/25 08:46 Empagliflozin 10 Mg Tablet PO 10 mg DAILY ROGELIO Administration Formoterol Fumarate 20 mcg 04/23/25 19:00 04/24/25 05:49 Formoterol Fumarate Neb 20 Mcg/2 Ml INH 20 mcg RTBID ROGELIO Administration Furosemide 20 mg 04/24/25 09:00 04/24/25 08:46 Furosemide 20 Mg Tablet PO 20 mg DAILY ROGELIO Administration Gabapentin 100 mg 04/23/25 21:00 04/23/25 20:01 Gabapentin 100 Mg Capsule PO 100 mg QPM ROGELIO Administration Guaifenesin 200 mg 04/24/25 10:00 04/24/25 13:15 Guaifenesin 100 Mg/5 Ml Udc PO 04/24/25 22:01 200 mg Q4H ROGELIO Administration Isosorbide Mononitrate 30 mg 04/24/25 09:00 04/24/25 08:46 Isosorbide Mononitrate Er 30 Mg Tablet PO 30 mg DAILY ROGELIO Administration Metoprolol Succinate 25 mg 04/24/25 09:00 04/24/25 08:46 Metoprolol Succinate 25 Mg Tablet PO 25 mg DAILY ROGELIO Administration Ondansetron HCl 4 mg 04/23/25 14:45 Ondansetron 4 Mg/2 Ml Vial IVP Q6HR PRN Nausea / Vomiting Ondansetron HCl 4 mg 04/23/25 14:45 Ondansetron Odt 4 Mg Tablet TL Q6HR PRN Nausea / Vomiting Leflunomide [Arava] 1 each 04/24/25 09:00 04/24/25 08:47 20 Mg Tablet PO Not Given DAILY ROGELIO Silodosin [Rapaflo] 1 each 04/24/25 09:00 04/24/25 08:48 8 Mg Capsule PO Not Given DAILY ROGELIO Prednisone 40 mg 04/24/25 08:00 04/24/25 08:47 Prednisone 20 Mg Tablet PO 40 mg DAILYWM ROGELIO Administration Sodium Chloride 10 ml 04/23/25 14:45 Sodium Chloride Flush 0.9% 10 Ml Syringe IVP PRN PRN NEEDED PER PROVIDER ORDERS Sodium Chloride 10 ml 04/23/25 17:00 04/24/25 08:47 Sodium Chloride Flush 0.9% 10 Ml Syringe IVP 10 ml 0100,0900,1700 ROGELIO Administration Solifenacin 10 mg 04/24/25 09:00 04/24/25 08:46 Solifenacin Succinate 5 Mg Tablet PO 10 mg DAILY ROGELIO Administration Objective Vital Signs/Intake & Output Reviewed Vital Signs: Yes Vital Signs: Vital Signs x48h Temp Pulse Pulse Resp BP Pulse Ox O2 Flow Rate 04/24/25 10:07 59 L 2 04/24/25 10:02 1 04/24/25 10:00 36.8 C 62 18 106/48 L 94 1 04/24/25 09:59 62 20 04/24/25 09:59 1 Intake & Output: Intake & Output 04/21/25 04/22/25 04/23/25 04/24/25 23:59 23:59 23:59 23:59 Intake Total 380 / 380 240 / 240 Balance 380 / 380 240 / 240 Weight (kg) 86.5 kg 87 kg Objective Comments/Other: GEN: No acute distress HEENT: NC/AT, normal appearance of external ears and nose. Hard of hearing at baseline. Cardiac: Irregular irregular but rate controlled. Trace pitting edema bilaterally Pulm: Much improved wheezing. Still has a persistent expiratory wheeze, but no longer audible in the room. Reasonable saturations on room air. No accessory muscle usage. Abdomen: Soft, nontender, nondistended. No rebound or guarding Extremities: Moves all 4 extremities equally. Normal tone. To stage II pressure ulcers Neuro: Face symmetric, CN II through XII intact grossly. No focal neurologic deficits. Psych: Mood euthymic with congruent affect. Lab Results 04/24/25 04:33 04/24/25 04:33 Other Labs: Lab Results x24hrs 04/24/25 04/23/25 Range/Units 04:33 18:04 WBC 6.0 (4.8-10.8) x10^3/uL RBC 3.87 L (4.70-6.10) 10^6/uL Hgb 11.5 L (14.0-18.0) g/dL Hct 36.9 L (42.0-52.0) % MCV 95.3 H (80.0-94.0) fL MCH 29.7 (27.0-31.0) pg MCHC 31.2 L (32.0-36.0) g/dL RDW 15.0 (12.0-15.0) % Plt Count 168 (130-450) 10^3/uL MPV 10.6 (7.4-11.4) fL Neut # (Auto) 4.6 (1.5-6.6) 10^3/uL Lymph # (Auto) 0.9 L (1.5-3.5) 10^3/uL [place] # (Auto) 0.4 (0.0-1.0) 10^3/uL Eos # (Auto) 0.0 (0.0-0.7) 10^3/uL Baso # (Auto) 0.0 (0.0-0.1) 10^3/uL Absolute Nucleated RBC 0.00 x10^3/uL Nucleated RBC % 0.0 /100WBC VBG pH 7.305 L (7.31-7.41) VBG pCO2 55.1 H (41-51) mmHg VBG pO2 49.6 H (25-47) mmHg VBG HCO3 27.7 (23-28) mmol/L VBG Total CO2 29.3 H (24-29) mmol/L VBG O2 Saturation 70.0 (60-80) % VBG Base Excess 1.1 (-2 - +2) mmol/L Sodium 141 140 (135-145) mmol/L Potassium 4.0 4.1 (3.5-4.5) mmol/L Chloride 107 105 (101-111) mmol/L Carbon Dioxide 30 29 (21-32) mmol/L Anion Gap 4.0 L 6.0 (6-13) BUN 19 18 (6-20) mg/dL Creatinine 1.0 1.1 (0.6-1.3) mg/dL Estimated GFR (MDRD) 71 L 63 L (>89) Glucose 222 H 325 H (74-104) mg/dL Calcium 9.3 9.6 (8.5-10.3) mg/dL Phosphorus 3.1 (2.5-5.0) mg/dL Magnesium 2.1 (1.7-2.3) mg/dL Assessment/Plan Problem List (1) Acute hypoxic respiratory failure: Impression: Improved. He has stable saturations on room air most of the time at rest. With a clear chest x-ray, unlikely that he has pulmonary fibrosis. He had a CTA last admission in early March which did not suggest this. No effusions. Longstanding RA can lead RLD, but this mostly is again an interstitial pattern and would likely show up on x-ray/CT with effusion. Finally consideration for opportunistic infections, however the patient does not have an elevated white blood cell count, he is not septic otherwise. He does have a elevated D-dimer. It is below age-adjusted cutoff. He does not have tachycardia or signs of DVT. Overall low risk. He had a negative CTA last hospitalization. Suspect most likely just unfortunate [id number] episodes of bronchitis versus newly emergent obstructive lung disease. - Treat as below - Consider CT chest if not improving - Will need to ambulate on room air prior to discharge, Anticipate tomorrow, I have ordered - Will add BNP and TSH to a.m. labs (2) Acute bronchitis: Impression: Wheezing much improved on steroids and scheduled nebs. He was recently seen in early March for a very similar presentation where he had acute onset dyspnea and diffuse expiratory wheezing. Recall that this presentation has been progressive over the preceding 3 to 4 days. His thinks he was normal around [place]. He has had some fevers at home subjectively, but no objective fevers. Chest x-ray and respiratory viral panel on admission are unremarkable. - 40 mg p.o. prednisone for a total of 5 days - 4 times daily scheduled DuoNebs, Transition to as needed tomorrow - Will start twice daily formoterol given recurrent episode, d/c on symbicort - No radiographic evidence of pneumonia, monitor off antibiotics. - Patient has a referral from his primary care to get pulmonary follow-up. Qualifiers: Bronchitis organism: unspecified organism Qualified Code(s): J20.9 - Acute bronchitis, unspecified (3) Hypertension: Qualifiers: Hypertension type: unspecified Qualified Code(s): I10 - Essential (primary) hypertension (4) Heart failure with reduced ejection fraction: Impression: Still euvolemic on exam. Only trace lower extremity edema. Patient apparently has a history of HFrEF. He is effectively compensated at this time. No clear indication for inpatient echo. BNP on admission 275 Blood pressure is normal to slightly elevated with systolics 131. He is on GDMT for HFrEF prior to his hospitalization including BB, SGLT2i. He has been previously prescribed Entresto, but has not taken was last filled almost a year ago. He has previously been prescribed Aldactone but last filled in May. He is additionally on scheduled furosemide 20 mg daily. - Cardiac diet - Strict I/O, daily weights - Continue GDMT: Jardiance 10 mg, Toprol 25 mg - Continue scheduled furosemide 20 mg daily - Spot dose diuretic if he decompensates - BMP a.m. (5) Atrial fibrillation: Impression: Continues to rate controlled on home metoprolol. He has an irregular irregular rhythm. His EKG on admission did not not show atrial fibrillation on my review. It has clear P waves with each QRS complex. He has frequent PVCs. He likely has paroxysmal atrial fibrillation. 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 EKG in the ED revealed normal sinus rhythm with PVCs. Personally reviewed by me. Lots of artifact. Patient has a history of remote CABG in 2011. - Continue DOAC - Patient should be on statin for secondary prevention, defer to primary care Qualifiers: Coronary Disease-Associated Artery/Lesion type: unspecified vessel or lesion type [place] vs. transplanted heart: [place] heart Associated angina: w [facility] angina Qualified Code(s): I25.10 - Atherosclerotic heart disease of [place] coronary artery without angina pectoris (7) Obstructive sleep apnea of adult: Impression: Patient with known history of BHUPENDRA. Uses CPAP regularly. He has 2 machines actually that he uses, 1 is living room and 1 in his bedroom. - Okay to use home CPAP. (8) Rheumatoid arthritis: Impression: Per his chart, he has RA. He is on leflunomide and gabapentin nightly. - Reasonable to continue his medications as he is not septic - Monitor renal function I spent a total of 41 minutes in the care of this patient today. This time was spent reviewing labs, vital signs, imaging, interviewing and examining the patient, and discussing plan of care with them and their other care providers. Managing an undiagnosed new problem with uncertain prognosis in setting of likely new obstructive lung disease. Data review as above prescription management as above. [id number].
[2025-04-25 05:20] LABS: HCT - HEMATOCRIT 37.6 % (42.0-52.0); HGB - HEMOGLOBIN 11.7 g/dL (14.0-18.0); MEAN PLATELET VOLUME 10.6 fL (7.4-11.4); NRBC ABSOLUTE COUNT (AUTO) 0.00 x10^3/uL; NUCLEATED RED BLOOD CELLS AUTO 0.0 /100WBC; PLT - PLATELET COUNT 185 10^3/uL (130-450); RED CELL DISTRIBUTION WIDTH 15.0 % (12.0-15.0)
[2025-04-25 05:44] LABS: BUN - BLOOD UREA NITROGEN 23.0 mg/dL (6-20); CARBON DIOXIDE - CO2 32.0 mmol/L (21-32); CREATININE 0.9 mg/dL (0.6-1.3); GFR - MDRD 80.0 (>89)
[2025-04-25] MEDS ORDERED: guaiFENesin 100 MG/5 ML UDC PO PRN (08:45)
[2025-04-25 09:43] VITALS: O2SAT 93
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
[2025-04-25 13:47] VITALS: BP 126/62; TEMP 97.7
== END 2025-04-25 14:00 | disposition home or self-care (01) | DRG 189 ==
LOC: MS3 11:51 → ED 11:51 → MS3 14:43
PROVIDERS: ADMIT Student in an Organized Health Care Education/Training Program; ATTEND Student in an Organized Health Care Education/Training Program
DX: R32 Unspecified urinary incontinence; J96.01 Acute respiratory failure with hypoxia; J44.0 Chronic obstructive pulmonary disease with (acute) lower respiratory infection; Z95.1 Presence of aortocoronary bypass graft; J96.02 Acute respiratory failure with hypercapnia; J20.9 Acute bronchitis, unspecified; H91.90 Unspecified hearing loss, unspecified ear; Z87.891 Personal history of nicotine dependence; M06.9 Rheumatoid arthritis, unspecified; I50.22 Chronic systolic (congestive) heart failure; I11.0 Hypertensive heart disease with heart failure; I48.20 Chronic atrial fibrillation, unspecified; I25.10 Atherosclerotic heart disease of native coronary artery without angina pectoris; L89.152 Pressure ulcer of sacral region, stage 2; G47.33 Obstructive sleep apnea (adult) (pediatric); Z79.01 Long term (current) use of anticoagulants